=== PATIENT | female | born 1945 | race Caucasian/White ===

== ENCOUNTER 2024-01-21 10:41 | Emergency (ER) | payer OTHER, MEDICAID, SELFPAY ==
[2024-01-21] VITALS (17 sets, daily range): BP systolic 106–129; BP diastolic 49–58; PULSE 96–119; RESP 22–33; TEMP 36.9–37.5; O2SAT 88–97; BMI 35.2
--- NOTE | 2024-01-21 10:54 | DI.RAD.S_ITS ---
PROCEDURE: XR CHEST 1V INDICATIONS: Shortness of breath TECHNIQUE: One view of the chest was acquired. COMPARISON: [facility], CT, CT CHEST ABDOMEN PELVIS WITHOUT CONTRAST, 09/02/2023, 18:26 Mild cardiomegaly.. Outside Film, CR, XR CHEST 1 VIEW, 07/21/2021, 22:01. [facility], CR, XR CHEST 1 VIEW, 04/02/2022, 6:09. [facility], CR, XR CHEST 1 VIEW, 04/04/2022, 11:49. FINDINGS: Surgical changes and devices: None. Lungs and pleura: Mild interstitial pulmonary edema. No pleural effusions or pneumothorax. Mediastinum: Mediastinal contours appear normal. Heart size is normal. Bones and chest wall: No suspicious bony lesions. Overlying soft tissues appear unremarkable. IMPRESSION: Mild congestive heart failure. Dictated by: Alireza Bhagat M.D. on 01/21/2024 at 11:33 Approved by: Alireza Bhagat M.D. on 01/21/2024 at 11:35
[2024-01-21 10:59] LABS: Add Manual Diff / Slide Review YES; Hematocrit 40.3 % (36-46); Hemoglobin 12.9 g/dL (12.0-16.0); Mean Corpuscular HGB Conc 31.9 % (30-36); Mean Corpuscular Hemoglobin 25.9 PG (26-34); Mean Corpuscular Volume 81.2 fL (80-100); Platelet Count 309 X10^3/uL (150-400); Red Blood Cell Count 4.96 X10^6/uL (4.0-5.2); White Blood Cell Count 15.1 X10^3/uL (4.5-11.0)
[2024-01-21 11:13] LABS: Alanine Aminotransferase 22 IU/L (<35); Albumin 3.6 g/dL (3.5-5.0); Albumin Globulin Ratio 1.2 (1.0-2.8); Alkaline Phosphatase 131 U/L (38-126); Aspartate Aminotransferase 36 IU/L (14-36); BUN Creatinine Ratio 22.3 (6-22); Blood Urea Nitrogen 27 mg/dL (7-17); Calcium 7.3 mg/dL (8.4-10.2); Carbon Dioxide 20 mmol/L (22-32); Chloride 112 mmol/L (98-107); Estimated Glomerular Filt Rate 46 mL/min (>60); Globulin 3.1 g/dL (1.7-4.1); Glucose 185 mg/dL (80-110); HEMOLYSIS < 15 (0-50); Lactate (Lactic Acid) 1.5 mmol/L (0.7-2.1); Potassium 4.2 mmol/L (3.4-5.1); Sodium 141 mmol/L (137-145); Total Protein 6.7 g/dL (6.3-8.2)
[2024-01-21 11:22] LABS: INR 1.6 (0.9-1.3); Prothrombin Time 17.9 SECONDS (9.4-12.5)
[2024-01-21 11:25] LABS: NT-proBNP (BNP-Adult 18+) 1590 pg/mL (<450); Troponin I < 0.012 ng/mL (0.01-0.034)
[2024-01-21 11:28] LABS: Anisocytosis 1+; Neutrophils Absolute Manual 12080 /uL (3000-5900); Total Cells Counted 100
[2024-01-21 11:47] LABS: Influenza A - CEPHEID Flu A NEGATIVE (NEGATIVE); Influenza B - CEPHEID Flu B NEGATIVE (NEGATIVE); Respiratory Syncytial Virus Negative (Negative)
[2024-01-21 11:48] LABS: COVID-19 CEPHEID 4-PLEX PCR Negative (Negative)
[2024-01-21] MEDS: ALBUTEROL 2.5 MG/3 ML NEB (ADULT) INH (12:37)
--- NOTE | 2024-01-21 12:43 | ED.SOB ---
HPI - SOB/Dyspnea General Chief Complaint: Shortness of Breath/Dyspnea Stated Complaint: Difficulty Breathing Time Seen by Provider: 01/21/24 12:27 Source: patient and EMS Mode of arrival: EMS History of Present Illness HPI Narrative: Patient 78-year-old female history of diabetes, atrial fibrillation on Xarelto chronically on home O2 4L presents today increasing shortness of breath. She reports he has had a cold for about 3 days she has had increased productive cough, denies any fever or chills. She reports that she is has orthopnea and shortness of breath with exertion. No significant lower extremity swelling no fever or chills. Related Data Previous Rx's Medication Instructions Recorded prednisone 20 mg tablet 40 mg (2 x 20 mg) PO DAILY #10 tabs 01/21/24 Allergies Allergy/AdvReac Type Severity Reaction Status Date / Time marijuana (cannabis) Allergy Verified 01/21/24 12:03 shellfish derived Allergy Verified 01/21/24 12:03 tramadol Allergy Verified 01/21/24 12:03 Patient History Social History Smoking Status: Never smoker Smoking Status: Never smoker Substance Use Type: does not use Exam Initial Vital Signs Initial Vital Signs: Vital Signs Temperature 99.5 F 01/21/24 10:54 Pulse Rate 119 H 01/21/24 10:54 Respiratory Rate 24 01/21/24 10:54 Blood Pressure 129/54 L 01/21/24 10:54 Pulse Oximetry 88 L 01/21/24 10:54 Oxygen Delivery Method Room Air 01/21/24 10:54 GENERAL: Alert 78-year-old female HEENT: Head atraumatic,EOMI, pupils reactive, CARDIOVASCULAR: Regular rate and rhythm without murmurs, rubs or gallops. RESPIRATORY: Mild crackles at bases no significant wheezing no conversational dyspnea ABDOMEN: Soft, nontender. Normoactive bowel sounds all 4 quadrants. No guarding or rebound. EXTREMITIES: Normal range of motion, no clubbing or edema. Neurovascularly intact NEUROLOGICAL: Alert and oriented x4.Normal gait and speech. SKIN: Warm, dry, no laceration, no petechiae, no rashes or lesions. Some skin breakdown noted on panus Course Orders Ordered: ED Orders 01/21/24 12:04 Blood Culture Stat Discontinued Medications Albuterol (Albuterol 2.5 Mg/3 Ml Neb (Adult)) 2.5 mg INH NOW ONE Stop: 01/21/24 12:32 Last Admin: 01/21/24 12:37 Dose: 2.5 mg Documented By: BRITTANYF Furosemide (Furosemide 40 Mg/4 Ml Vial) 40 mg IV NOW ONE Stop: 01/21/24 14:43 Last Admin: 01/21/24 15:52 Dose: 40 mg Documented By: ZARINA Methylprednisolone (Methylprednisolone 125 Mg/2 Ml Vial) 125 mg IV NOW ONE Stop: 01/21/24 15:19 Last Admin: 01/21/24 15:52 Dose: 125 mg Documented By: ZARINA Vital Signs Vital signs: Vital Signs - 8 hr 01/21/24 12:38 01/21/24 13:00 01/21/24 13:30 Temperature Pulse Rate 108 H 105 H 104 H Respiratory Rate 22 31 H Blood Pressure Pulse Oximetry 94 93 91 Oxygen Delivery Method Nasal Cannula Oxygen Flow Rate 4 01/21/24 13:46 01/21/24 13:46 01/21/24 14:00 Temperature Pulse Rate 104 H 99 H Respiratory Rate 24 Blood Pressure 117/52 L Pulse Oximetry 91 95 Oxygen Delivery Method Oxygen Flow Rate 01/21/24 14:00 01/21/24 14:30 01/21/24 14:30 Temperature Pulse Rate 97 H Respiratory Rate 27 H Blood Pressure 108/49 L 108/53 L Pulse Oximetry 92 Oxygen Delivery Method Oxygen Flow Rate 01/21/24 15:00 01/21/24 15:00 01/21/24 15:30 Temperature Pulse Rate 96 H Respiratory Rate 26 H Blood Pressure 106/51 L 115/58 L Pulse Oximetry 93 Oxygen Delivery Method Oxygen Flow Rate 01/21/24 15:30 01/21/24 16:00 01/21/24 16:01 Temperature Pulse Rate 100 H 98 H Respiratory Rate 24 Blood Pressure 114/51 L Pulse Oximetry 93 97 Oxygen Delivery Method Oxygen Flow Rate 01/21/24 16:01 01/21/24 16:30 01/21/24 16:59 Temperature 98.4 F Pulse Rate 99 H 100 H Respiratory Rate Blood Pressure Pulse Oximetry 96 95 Oxygen Delivery Method Oxygen Flow Rate MDM - SOB/Dyspnea Lab Data 01/21/24 10:56 01/21/24 10:56 Labs: Lab Results 01/21/24 01/21/24 Range/Units 10:49 10:56 WBC 15.1 H (4.5-11.0) X10^3/uL RBC 4.96 (4.0-5.2) X10^6/uL Hgb 12.9 (12.0-16.0) g/dL Hct 40.3 (36-46) % MCV 81.2 (80-100) fL MCH 25.9 L (26-34) PG MCHC 31.9 (30-36) % RDW 18.0 H (11.6-14.8) % Plt Count 309 (150-400) X10^3/uL Neut % (Auto) Not Reportable Lymph % (Auto) Not Reportable Sunflower % (Auto) Not Reportable Eos % (Auto) Not Reportable Baso % (Auto) Not Reportable Lymph # (Auto) Not Reportable Sunflower # (Auto) Not Reportable Baso # (Auto) Not Reportable Total Counted 100 Seg Neutrophils % 80.0 H (38-70) % Lymphocytes % (Manual) 13.0 L (25-45) % Monocytes % (Manual) 5.0 (2-11) % Basophils % (Manual) 2.0 H (0-1) % Neutrophils # (Manual) 92818 H (0228-0050) /uL RBC Morphology See below Anisocytosis 1+ H PT 17.9 H (9.4-12.5) SECONDS INR 1.6 H (0.9-1.3) Sodium 141 (137-145) mmol/L Potassium 4.2 (3.4-5.1) mmol/L Chloride 112 H (98-107) mmol/L Carbon Dioxide 20 L (22-32) mmol/L BUN 27 H (7-17) mg/dL Creatinine 1.21 H (0.52-1.04) mg/dL Estimated GFR 46 L (>60) mL/min BUN/Creatinine Ratio 22.3 H (6-22) Glucose 185 H (80-110) mg/dL Lactate 1.5 (0.7-2.1) mmol/L Calcium 7.3 L (8.4-10.2) mg/dL Total Bilirubin 1.0 (0.2-1.3) mg/dL AST 36 (14-36) IU/L ALT 22 (<35) IU/L Alkaline Phosphatase 131 H (38-126) U/L Troponin I < 0.012 (0.01-0.034) ng/mL NT-Pro-B Natriuret Pep 1590 H (<450) pg/mL Total Protein 6.7 (6.3-8.2) g/dL Albumin 3.6 (3.5-5.0) g/dL Globulin 3.1 (1.7-4.1) g/dL Albumin/Globulin Ratio 1.2 (1.0-2.8) SARS-CoV-2 (PCR) Negative (Negative) Influenza A (RT-PCR) Flu a negative (NEGATIVE) Influenza B (RT-PCR) Flu b negative (NEGATIVE) RSV (PCR) Negative (Negative) Imaging Data Chest x-ray: Radiologist's Impression: PROCEDURE: XR CHEST 1V INDICATIONS: Shortness of breath TECHNIQUE: One view of the chest was acquired. COMPARISON: [facility], CT, CT CHEST ABDOMEN PELVIS WITHOUT CONTRAST, 09/02/2023, 18:26 Mild cardiomegaly.. Outside Film, CR, XR CHEST 1 VIEW, 07/21/2021, 22:01. [facility], CR, XR CHEST 1 VIEW, 04/02/2022, 6:09. [facility], CR, XR CHEST 1 VIEW, 04/04/2022, 11:49. FINDINGS: Surgical changes and devices: None. Lungs and pleura: Mild interstitial pulmonary edema. No pleural effusions or pneumothorax. Mediastinum: Mediastinal contours appear normal. Heart size is normal. Bones and chest wall: No suspicious bony lesions. Overlying soft tissues appear unremarkable. IMPRESSION: Mild congestive heart failure. Dictated by: Alireza Bhagat M.D. on 01/21/2024 at 11:33 ECG Data Interpretation: Atrial fibrillation rate [address] changes MDM Narrative Medical decision making narrative: Patient 78-year-old female history of asthma atrial fibrillation on Xarelto, diabetes, She has had upper respiratory like symptoms Blood work has been reviewed: Viral panel negative WBC 15, hemoglobin 12.9, hematocrit 40.3, platelets 309, sodium 141, potassium 4.2, chloride 112, carbon dioxide 20, BUN 27, creatinine 0.21, glucose 185, troponin negative, BNP 1590 Chest x-ray reviewed mild congestive heart failure Patient feels like she has had a cold for the last 3 days she is mild leukocytosis of 15. She was having respiratory issues when she arrives she received albuterol and Lasix. She reports that the albuterol seemed to help a lot. Viral panel is negative no evidence of pneumonia on x-ray. Leukocytosis may be reactive. She is on Lasix 20 mg once daily she does not look significantly fluid overloaded. Discharge Plan Departure Patient Disposition: Home Clinical Impression: Asthma with exacerbation, Congestive heart failure Instructions: DI for Asthma -- Adult, DI for Heart Failure Activity Restrictions/Additional Instructions: *You have been diagnosed with asthma exacerbation, CHF *What to do: At this time let us try short course of prednisone to see if it helps her breathing *Continue to take medications as directed Furosemide 20 mg twice a day for 2 days, then resume normal dose of once daily Prednisone 40 mg once a day for 5 days *Follow up with your primary care provider in 2-3 days or call [phone] *Return to ER if you should have increasing shortness of breath fever chills or weakness or any new, worsening or concerning symptoms Prescriptions: New prednisone 20 mg tablet 40 mg PO DAILY Qty: 10 0RF Stand Alone Forms: Patient Portal/API
[2024-01-21] MEDS: methylPREDNISolone 125 MG/2 ML VIAL IV (15:52)
[2024-01-21] MEDS: FUROSEMIDE 40 MG/4 ML VIAL IV (15:52)
== END 2024-01-21 17:00 | disposition home or self-care (01) ==
PROVIDERS: Emergency Provider Emergency Medicine
DX: J45.901 Unspecified asthma with (acute) exacerbation (principal); I50.9 Heart failure, unspecified; R06.02 Shortness of breath; Z20.822 Contact with and (suspected) exposure to COVID-19
CPT/HCPCS: 0241U; 71045; 80053; 83605; 83880; 84484; 85007; 85025; 85610; 87040; 93005; 94640; 96374; 96375; 99284; J1940; J2919; J7613

== ENCOUNTER 2024-02-02 10:45 | Observation (INO) | payer OTHER, MEDICAID, SELFPAY ==
[2024-02-02] VITALS (24 sets, daily range): BP systolic 94–128; BP diastolic 49–67; PULSE 57–86; RESP 13–33; TEMP 35.9–37.1; O2SAT 84–97; BMI 38.2
--- NOTE | 2024-02-02 10:59 | DI.RAD.S_ITS ---
PROCEDURE: XR CHEST 1V INDICATIONS: Shortness of breath TECHNIQUE: One view of the chest was acquired. COMPARISON: [facility], CR, XR CHEST 1V, 01/21/2024, 11:08. FINDINGS: Surgical changes and devices: None. Lungs and pleura: Prominent interstitial markings. Mediastinum: Mediastinal contours appear normal. Heart size is enlarged. Bones and chest wall: No suspicious bony lesions. Overlying soft tissues appear unremarkable. IMPRESSION: Cardiomegaly with prominent interstitial markings, concerning for pulmonary edema. Dictated by: Hayden Mcnulty M.D. on 02/02/2024 at 11:20 Approved by: Hayden Mcnulty M.D. on 02/02/2024 at 11:21
[2024-02-02 11:05] LABS: Add Manual Diff / Slide Review NO; Basophils Absolute Auto 100 /uL (0-100); Basophils Percent Auto 0.8 % (0-2); Eosinophils Absolute Auto 200 /uL (0-450); Eosinophils Percent Auto 1.1 % (2-4); Hematocrit 44.6 % (36-46); Hemoglobin 14.2 g/dL (12.0-16.0); Lymphocytes Absolute Auto 3000 /uL (1100-4500); Lymphocytes Percent Auto 19.5 % (25-40); Mean Corpuscular HGB Conc 31.9 % (30-36); Mean Corpuscular Hemoglobin 25.2 PG (26-34); Monocytes Absolute Auto 1000 /uL (0-900); Monocytes Percent Auto 6.2 % (3-14); Neutrophils Absolute Auto 11100 /uL (1500-7000); Neutrophils Percent Auto 72.4 % (50-75); Platelet Count 299 X10^3/uL (150-400); Red Blood Cell Count 5.64 X10^6/uL (4.0-5.2); White Blood Cell Count 15.3 X10^3/uL (4.5-11.0)
[2024-02-02 11:11] LABS: INR 2.1 (0.9-1.3); Prothrombin Time 24.6 SECONDS (9.4-12.5)
--- NOTE | 2024-02-02 11:14 | ED.SOB ---
HPI - SOB/Dyspnea General Chief Complaint: Shortness of Breath/Dyspnea Stated Complaint: Alt ment status/weakness 3 days,hypoxia Time Seen by Provider: 02/02/24 11:06 Source: patient and EMS Mode of arrival: EMS History of Present Illness HPI Narrative: Patient brought in by ambulance from daughter's home for dyspnea and altered mental status. Patient is post be on oxygen at home but she states she took it off this morning. Uncertain why she took off she states. She is alert and oriented to self and date of . She is able tell me that she does have CHF and COPD. She states she took a hydrocodone yesterday and this morning. For chronic ?bone pain?. Patient states she has been urinating a lot. She is uncertain if she has had limb swelling. There is 1+ pitting edema of the legs. Patient denies any chest pain. She is very somnolent. Has pinpoint pupils. Narcan has been ordered. Blood glucose ordered as well. Breathing treatment already done by respiratory therapy without improvement in mental status. There are bibasilar rales. Denies any fall or injury. Blood sugar 180 Review of recent visit January 21, 2024, patient does have history of diabetes atrial fibrillation on Xarelto. Home oxygen 4 L Related Data Home Medications Medication Instructions Recorded Confirmed atorvastatin 20 mg tablet 20 mg PO DAILY 02/02/24 02/02/24 buspirone 10 mg tablet 10 mg PO TID 02/02/24 02/03/24 cholecalciferol (vitamin D3) 25 1,000 mcg PO DAILY 02/02/24 02/02/24 mcg (1,000 unit) capsule (Vitamin D3) cyclobenzaprine 10 mg tablet 10 mg PO DAILY 02/02/24 02/03/24 diazepam 5 mg tablet 5 mg PO PRN PRN Muscle Spasm 02/02/24 02/02/24 empagliflozin 10 mg tablet 10 mg PO DAILY 02/02/24 02/02/24 (Jardiance) furosemide 20 mg tablet 20 mg PO DAILY 02/02/24 02/02/24 hydrocodone 10 mg-acetaminophen 1 tab PO TID 02/02/24 02/03/24 325 mg tablet insulin glargine 100 unit/mL (3 24 unit SUBCUT BID 02/02/24 02/03/24 mL) subcutaneous pen (Lantus Solostar U-100 Insulin) lisinopril 20 mg tablet 20 mg PO DAILY 02/02/24 02/02/24 montelukast 10 mg tablet 10 mg PO ONCE PM 02/02/24 02/02/24 ondansetron 8 mg disintegrating 8 mg PO Q8H PRN nausea/vomiting 02/02/24 02/02/24 tablet pantoprazole 40 mg tablet,delayed 40 mg PO DAILY 02/02/24 02/02/24 release pramipexole 1 mg tablet 1 mg PO QPM 02/02/24 02/02/24 pregabalin 100 mg capsule 100 mg PO TID 02/02/24 02/02/24 rivaroxaban 15 mg tablet (Xarelto) 15 mg PO QPM 02/02/24 02/02/24 albuterol sulfate 2.5 mg/3 mL 2.5 mg inhalation Q4H PRN wheezing 02/03/24 02/03/24 (0.083 %) solution for nebulization albuterol sulfate 90 mcg/actuation 2 puff inhalation Q6H PRN wheezing 02/03/24 02/03/24 aerosol inhaler budesonide 0.5 mg/2 mL suspension 0.5 mg inhalation DAILY 02/03/24 02/03/24 for nebulization ipratropium 0.5 mg-albuterol 3 mg 3 ml inhalation DAILY PRN SOB 02/03/24 02/03/24 (2.5 mg base)/3 mL nebulization soln lidocaine 5 % topical patch 1 patch topical DAILY 02/03/24 02/03/24 potassium chloride 10 mEq 10 meq PO BID 02/03/24 02/03/24 tablet,extended release tiotropium 2.5 mcg-olodaterol 2.5 2 puff inhalation DAILY 02/03/24 02/03/24 mcg/actuation mist for inhalation (Stiolto Respimat) Previous Rx's Medication Instructions Recorded azithromycin 250 mg tablet 250 mg PO DAILY #3 tabs 02/04/24 cefuroxime axetil 500 mg tablet 500 mg PO BID 5 days #10 tabs 02/04/24 Allergies Allergy/AdvReac Type Severity Reaction Status Date / Time marijuana (cannabis) Allergy Verified 01/21/24 12:03 shellfish derived Allergy Verified 01/21/24 12:03 tramadol Allergy Verified 01/21/24 12:03 Review of Systems Review of Systems Narrative: GENERAL: negative chills, fatigue, malaise, fever, sweats. HEENT: negative sinus pain, ear pain, sore throat RESPIRATORY: Positive dyspnea, denies cough CARDIOVASCULAR: negative chest pain, palpitations GASTROINTESTINAL: negative nausea, vomiting, abdominal pain : negative dysuria, frequency, hematuria MUSCULOSKELETAL: negative muscle or bony pain SKIN: negative rash, skin lesions NEUROLOGIC: negative weakness, numbness, positive confusion ROS Unobtainable: All systems reviewed & are unremarkable except as noted in HPI and below Patient History Social History household members: children Smoking Status: Never smoker alcohol intake: never Smoking Status: Never smoker Substance Use Type: does not use Exam Narrative Exam Narrative: GENERAL: in no distress, not toxic not dyspneic HEAD: Normocephalic. EYES: Pupils equal round ENT: Mucous membranes moist. NECK: Trachea midline. CARDIOVASCULAR: Irregularly irregular rate and rhythm RESPIRATORY: Patient very somnolent but is able to speak through the non-rebreather. Not candidate for BiPAP at this time. There are bibasilar rales and rhonchi but no wheezing, no tachypnea. GASTROINTESTINAL: Abdomen soft, non-tender EXTREMITIES: No gross deformities. 1+ bilateral leg edema BACK: No flank tenderness. NEURO: AOx4. SKIN: Warm and dry PSYCH: Not anxious, is cooperative Initial Vital Signs Initial Vital Signs: Vital Signs Pulse Rate 78 02/02/24 10:51 Pulse Oximetry 91 02/02/24 10:51 Oxygen Delivery Method Nasal Cannula 02/02/24 10:51 Oxygen Flow Rate 5 02/02/24 10:51 Course Orders Ordered: Discontinued Medications Acetaminophen (Acetaminophen 325 Mg Tablet) 650 mg PO Q6H PRN PRN Reason: Fever/Mild Pain (1-3) Hydrocodone Bitart/Acetaminophen (Hydrocodone/Acet 5/325 Tablet) 1 tab PO Q4HR PRN PRN Reason: Pain, Moderate (4-6) Last Admin: 02/03/24 04:34 Dose: 1 tab Documented By: DILEEP Hydrocodone Bitart/Acetaminophen (Hydrocodone/Acet 10/325 Tablet) 1 tab PO TID PRN PRN Reason: Pain, Severe (7-10) Last Admin: 02/04/24 07:01 Dose: 1 tab Documented By: Admin: 02/03/24 21:09 Dose: 1 tab Documented By: Admin: 02/03/24 08:56 Dose: 1 tab Documented By: KARINA Atorvastatin Calcium (Atorvastatin 20 Mg Tablet) 20 mg PO DAILY [facility] Last Admin: 02/04/24 08:42 Dose: 20 mg Documented By: Admin: 02/03/24 08:36 Dose: 20 mg Documented By: KARINA Azithromycin (Azithromycin 250 Mg Tablet) 500 mg PO NOW ONE Stop: 02/04/24 15:33 Last Admin: 02/04/24 15:38 Dose: 500 mg Documented By: KARINA Buspirone HCl (Buspirone 5 Mg Tablet) 10 mg PO TID [facility] Last Admin: 02/04/24 14:50 Dose: 10 mg Documented By: Admin: 02/04/24 08:41 Dose: 10 mg Documented By: Admin: 02/03/24 20:52 Dose: 10 mg Documented By: Admin: 02/03/24 14:50 Dose: 10 mg Documented By: Admin: 02/03/24 08:36 Dose: 10 mg Documented By: KARINA Calcium Carbonate (Calcium Carbonate 500 Mg Tab) 1,000 mg PO Q4HR PRN PRN Reason: Dyspepsia Cyclobenzaprine HCl (Cyclobenzaprine 10 Mg Tablet) 10 mg PO TID [facility] Last Admin: 02/03/24 08:36 Dose: 10 mg Documented By: KARINA Diazepam (Diazepam 5 Mg Tablet) 5 mg PO PRN PRN PRN Reason: Muscle Spasm Furosemide (Furosemide 20 Mg Tablet) 20 mg PO DAILY [facility] Last Admin: 02/04/24 08:41 Dose: 20 mg Documented By: Admin: 02/03/24 08:36 Dose: 20 mg Documented By: KARINA Sodium Chloride (Normal Saline 0.9%) 500 mls @ 250 mls/hr IV BOLUS ONE Stop: 02/02/24 14:46 Last Infusion: 02/02/24 15:38 Dose: Infused Documented By: KARINA(2) Admin: 02/02/24 14:16 Dose: 250 mls/hr Documented By: KARINA(2) Ceftriaxone Sodium 2,000 mg/ (Sodium Chloride) 100 mls @ 200 mls/hr IV NOW ONE Stop: 02/02/24 15:01 Last Infusion: 02/02/24 15:39 Dose: Infused Documented By: KARINA(2) Admin: 02/02/24 15:00 Dose: 200 mls/hr Documented By: KARINA(2) Azithromycin 500 mg/ Dextrose 250 mls @ 250 mls/hr IV NOW ONE Stop: 02/02/24 15:01 Last Infusion: 02/02/24 15:58 Dose: 0 mls/hr Documented By: KARINA(2) Admin: 02/02/24 15:57 Dose: 250 mls/hr Documented By: KARINA(2) Ceftriaxone Sodium 1,000 mg/ (Sodium Chloride) 100 mls @ 200 mls/hr IV Q24H ANNA Stop: 02/08/24 14:59 Last Admin: 02/04/24 14:50 Dose: 200 mls/hr Documented By: Infusion: 02/03/24 16:10 Dose: Infused Documented By: Admin: 02/03/24 14:50 Dose: 200 mls/hr Documented By: KARINA Azithromycin 500 mg/ Dextrose 250 mls @ 250 mls/hr IV Q24H ANNA Stop: 02/06/24 15:59 Last Infusion: 02/04/24 15:19 Dose: Infused Documented By: Admin: 02/03/24 16:10 Dose: 250 mls/hr Documented By: KARINA Montelukast Sodium (Montelukast 10 Mg Tablet) 10 mg PO QPM [facility] Last Admin: 02/03/24 16:10 Dose: 10 mg Documented By: KARINA Naloxone HCl (Naloxone 0.4 Mg/Ml Vial) 0.2 mg IV Q2MIN PRN PRN Reason: Opiate Reversal Last Admin: 02/02/24 11:27 Dose: 0.2 mg Documented By: KARINA(2) Naloxone HCl (Naloxone 0.4 Mg/Ml Vial) 0.2 mg IV NOW ONE Stop: 02/02/24 11:46 Last Admin: 02/02/24 11:46 Dose: 0.2 mg Documented By: KARINA(2) Naloxone HCl (Naloxone 0.4 Mg/Ml Vial) 0.2 mg IV Q2MIN PRN PRN Reason: Opiate Reversal Ondansetron HCl (Ondansetron 4 Mg/2 Ml Inj) 4 mg IV NOW ONE Stop: 02/02/24 11:14 Last Admin: 02/02/24 11:27 Dose: 4 mg Documented By: KARINA(2) Pantoprazole Sodium (Pantoprazole Dr 40 Mg Tablet) 40 mg PO DAILY [facility] Last Admin: 02/04/24 08:41 Dose: 40 mg Documented By: Admin: 02/03/24 08:36 Dose: 40 mg Documented By: KARINA Pramipexole Dihydrochloride (Pramipexole 0.25 Mg Tablet) 1 mg PO BEDTIME [facility] Last Admin: 02/03/24 20:52 Dose: 1 mg Documented By: DILEEP Pregabalin (Pregabalin 50 Mg Capsule) 100 mg PO TID [facility] Last Admin: 02/04/24 14:50 Dose: 100 mg Documented By: Admin: 02/04/24 08:41 Dose: 100 mg Documented By: Admin: 02/03/24 20:53 Dose: 100 mg Documented By: Admin: 02/03/24 14:50 Dose: 100 mg Documented By: Admin: 02/03/24 08:36 Dose: 100 mg Documented By: KARINA Rivaroxaban (Rivaroxaban 10 Mg Tablet) 15 mg PO QPM [facility] Last Admin: 02/03/24 16:10 Dose: 15 mg Documented By: KARINA Sennosides (Sennosides 8.6 Mg Tablet) 17.2 mg PO BEDTIME [facility] Last Admin: 02/03/24 20:52 Dose: 17.2 mg Documented By: Admin: 02/02/24 21:02 Dose: 17.2 mg Documented By: DILEEP Vitamin D (Cholecalciferol (Vitamin D3) 1,000 Unit Tablet) 1,000 unit PO DAILY [facility] Last Admin: 02/04/24 08:42 Dose: 1,000 unit Documented By: Admin: 02/03/24 08:36 Dose: 1,000 unit Documented By: KARINA Vital Signs Vital signs: Vital Signs - 8 hr 02/02/24 10:51 02/02/24 10:53 02/02/24 10:53 Temperature Pulse Rate 78 78 Respiratory Rate 26 H Blood Pressure 118/56 L Pulse Oximetry 91 Oxygen Delivery Method Nasal Cannula Oxygen Flow Rate 5 02/02/24 11:00 02/02/24 11:00 02/02/24 11:02 Temperature 98.7 F Pulse Rate 80 77 Respiratory Rate 32 H 22 Blood Pressure 126/56 L 122/56 L Pulse Oximetry 86 L 86 L Oxygen Delivery Method Non -Rebreather Non -Rebreather Oxygen Flow Rate 15 02/02/24 11:15 02/02/24 11:15 02/02/24 11:30 Temperature Pulse Rate 78 Respiratory Rate 19 Blood Pressure 94/65 113/53 L Pulse Oximetry 85 L Oxygen Delivery Method Non -Rebreather Oxygen Flow Rate 15 02/02/24 11:30 02/02/24 11:45 02/02/24 11:45 Temperature Pulse Rate 86 78 Respiratory Rate 33 H 23 Blood Pressure 117/53 L Pulse Oximetry Oxygen Delivery Method Oxygen Flow Rate 02/02/24 12:00 02/02/24 12:01 02/02/24 12:01 Temperature Pulse Rate 77 79 Respiratory Rate 23 28 H Blood Pressure 115/53 L Pulse Oximetry 91 Oxygen Delivery Method Nasal Cannula Oxygen Flow Rate 5 02/02/24 12:30 02/02/24 14:16 Temperature Pulse Rate 74 Respiratory Rate 25 H Blood Pressure Pulse Oximetry 97 Oxygen Delivery Method Nasal Cannula Oxygen Flow Rate 4 MDM - SOB/Dyspnea Lab Data 02/04/24 05:17 02/04/24 05:17 Labs: Lab Results 02/02/24 02/02/24 02/02/24 Range/Units 10:45 10:59 11:17 WBC 15.3 H (4.5-11.0) X10^3/uL RBC 5.64 H (4.0-5.2) X10^6/uL Hgb 14.2 (12.0-16.0) g/dL Hct 44.6 (36-46) % MCV 79.0 L (80-100) fL MCH 25.2 L (26-34) PG MCHC 31.9 (30-36) % RDW 18.0 H (11.6-14.8) % Plt Count 299 (150-400) X10^3/uL Neut % (Auto) 72.4 (50-75) % Lymph % (Auto) 19.5 L (25-40) % [place] % (Auto) 6.2 (3-14) % Eos % (Auto) 1.1 L (2-4) % Baso % (Auto) 0.8 (0-2) % Neut # (Auto) 89212 H (7528-0534) /uL Lymph # (Auto) 3000 (3108-3721) /uL [place] # (Auto) 1000 H (0-900) /uL Eos # (Auto) 200 (0-450) /uL Baso # (Auto) 100 (0-100) /uL PT 24.6 H (9.4-12.5) SECONDS INR 2.1 H (0.9-1.3) ABG Sample Site Left radial ABG pH 7.34 L (7.35-7.45) ABG pCO2 48.3 H (35-45) mmHg ABG pO2 249 H (80-100) mmHg ABG HCO3 26 (23-27) mmol/L ABG Total CO2 27 (23-27) mmol/L ABG O2 Saturation 100 (95-100) % ABG Base Excess 0.0 (-2-3) mmol/L FiO2 80 Sodium 133 L (137-145) mmol/L Potassium 4.8 (3.4-5.1) mmol/L Chloride 103 (98-107) mmol/L Carbon Dioxide 26 (22-32) mmol/L BUN 20 H (7-17) mg/dL Creatinine 1.00 (0.52-1.04) mg/dL Estimated GFR 58 L (>60) mL/min BUN/Creatinine Ratio 20.0 (6-22) Glucose 190 H (80-110) mg/dL Lactate 1.8 (0.7-2.1) mmol/L Calcium 8.7 (8.4-10.2) mg/dL Total Bilirubin 1.0 (0.2-1.3) mg/dL AST 29 (14-36) IU/L ALT 20 (<35) IU/L Alkaline Phosphatase 85 (38-126) U/L Troponin I < 0.012 (0.01-0.034) ng/mL NT-Pro-B Natriuret Pep 436 (<450) pg/mL Total Protein 6.4 (6.3-8.2) g/dL Albumin 3.7 (3.5-5.0) g/dL Globulin 2.7 (1.7-4.1) g/dL Albumin/Globulin Ratio 1.4 (1.0-2.8) Chlamy pneumoniae PCR (Not Detect) Adenovirus (PCR) (Not Detect) B.parapertussis DNA PCR (Not Detecte) Coronavirus OC43 (PCR) (Not Detect) Coronavirus HKU1 (PCR) (Not Detect) Coronavirus 229E (PCR) (Not Detect) SARS-CoV-2 (PCR) (Not Detecte) Coronavirus NL63 (PCR) (Not Detect) Human Metapneumovir PCR (Not Detect) Influenza Type A (PCR) (Not Detect) Influenza Type B (PCR) (Not Detect) M. pneumoniae (PCR) (Not Detect) Parainfluenza 1 (PCR) (Not Detect) Parainfluenza 2 (PCR) (Not Detect) Parainfluenza 3 (PCR) (Not Detect) Parainfluenza 4 (PCR) (Not Detect) RSV (PCR) (Not Detect) Entero/Rhino (PCR) (Not Detect) 02/02/24 Range/Units 11:19 WBC (4.5-11.0) X10^3/uL RBC (4.0-5.2) X10^6/uL Hgb (12.0-16.0) g/dL Hct (36-46) % MCV (80-100) fL MCH (26-34) PG MCHC (30-36) % RDW (11.6-14.8) % Plt Count (150-400) X10^3/uL Neut % (Auto) (50-75) % Lymph % (Auto) (25-40) % [place] % (Auto) (3-14) % Eos % (Auto) (2-4) % Baso % (Auto) (0-2) % Neut # (Auto) (6868-2165) /uL Lymph # (Auto) (6428-5533) /uL [place] # (Auto) (0-900) /uL Eos # (Auto) (0-450) /uL Baso # (Auto) (0-100) /uL PT (9.4-12.5) SECONDS INR (0.9-1.3) ABG Sample Site ABG pH (7.35-7.45) ABG pCO2 (35-45) mmHg ABG pO2 (80-100) mmHg ABG HCO3 (23-27) mmol/L ABG Total CO2 (23-27) mmol/L ABG O2 Saturation (95-100) % ABG Base Excess (-2-3) mmol/L FiO2 Sodium (137-145) mmol/L Potassium (3.4-5.1) mmol/L Chloride (98-107) mmol/L Carbon Dioxide (22-32) mmol/L BUN (7-17) mg/dL Creatinine (0.52-1.04) mg/dL Estimated GFR (>60) mL/min BUN/Creatinine Ratio (6-22) Glucose (80-110) mg/dL Lactate (0.7-2.1) mmol/L Calcium (8.4-10.2) mg/dL Total Bilirubin (0.2-1.3) mg/dL AST (14-36) IU/L ALT (<35) IU/L Alkaline Phosphatase (38-126) U/L Troponin I (0.01-0.034) ng/mL NT-Pro-B Natriuret Pep (<450) pg/mL Total Protein (6.3-8.2) g/dL Albumin (3.5-5.0) g/dL Globulin (1.7-4.1) g/dL Albumin/Globulin Ratio (1.0-2.8) Chlamy pneumoniae PCR Not detected (Not Detect) Adenovirus (PCR) Not detected (Not Detect) B.parapertussis DNA PCR Not detected (Not Detecte) Coronavirus OC43 (PCR) Not detected (Not Detect) Coronavirus HKU1 (PCR) Not detected (Not Detect) Coronavirus 229E (PCR) Not detected (Not Detect) SARS-CoV-2 (PCR) Not detected (Not Detecte) Coronavirus NL63 (PCR) Not detected (Not Detect) Human Metapneumovir PCR Not detected (Not Detect) Influenza Type A (PCR) Not detected (Not Detect) Influenza Type B (PCR) Not detected (Not Detect) M. pneumoniae (PCR) Not detected (Not Detect) Parainfluenza 1 (PCR) Not detected (Not Detect) Parainfluenza 2 (PCR) Not detected (Not Detect) Parainfluenza 3 (PCR) Not detected (Not Detect) Parainfluenza 4 (PCR) Not detected (Not Detect) RSV (PCR) Not detected (Not Detect) Entero/Rhino (PCR) Not detected (Not Detect) Imaging Data Chest x-ray: Radiologist's Impression: [address] [address] XRay Report Signed Patient: Lakshmi Aquino MR#: [id number] : 1945 Acct:[id number] Age/Sex: 78 / F Date of Service: 02/02/24 Loc: ED Accession Number: [id number] Procedure: XR chest 1V Ordering Provider: Jean Carlos Hurt MD PROCEDURE: XR CHEST 1V INDICATIONS: Shortness of breath TECHNIQUE: One view of the chest was acquired. COMPARISON: [facility], CR, XR CHEST 1V, 01/21/2024, 11:08. FINDINGS: Surgical changes and devices: None. Lungs and pleura: Prominent interstitial markings. Mediastinum: Mediastinal contours appear normal. Heart size is enlarged. Bones and chest wall: No suspicious bony lesions. Overlying soft tissues appear unremarkable. IMPRESSION: Cardiomegaly with prominent interstitial markings, concerning for pulmonary edema. Dictated by: Hayden Mcnulty M.D. on 02/02/2024 at 11:20 Approved by: Hayden cMnulty M.D. on 02/02/2024 at 11:21 CT scan - chest: Radiologist's Impression: [place] [address] CT Scan Report Signed Patient: Lakshmi Aquino MR#: [id number] : 1945 Acct:[id number] Age/Sex: 78 / F Date of Service: 02/02/24 Loc: ED Accession Number: [id number] Procedure: CT chest wo con Ordering Provider: Everette Martin MD PROCEDURE: CT CHEST WO CON INDICATIONS: Dyspnea TECHNIQUE: Noncontrast 5 mm thick sections acquired from the pulmonary apices to the posterior costophrenic angles. 1 mm lung window, 5 mm thick coronal and sagittal and 7 mm axial MIP reformats were then acquired. For radiation dose reduction, the following was used: automated exposure control, adjustment of mA and/or kV according to patient size. COMPARISON: [facility], CT, CT ANGIO CHEST ABDOMEN PELVIS, 09/03/2023, 1:06. FINDINGS: Image quality: Diagnostic. Lower Neck: No enlarged lymph nodes. Thyroid: No thyroid nodules which require sonographic follow up, per consensus guidelines. Axillae: No enlarged lymph nodes. Chest Wall: Unremarkable. Bones: Decreased osseous mineralization. Degenerative changes of spine. Mild superior endplate compression deformity of T3 is stable.. Lungs and Pleura: No pneumothorax or pleural effusions. Patchy areas of mild ground-glass with more consolidative opacities at left base. Heart: Heart size is normal. Mild coronary artery calcifications. No pericardial effusion. Thoracic Vessels: The aorta and pulmonary arteries demonstrate normal size. Atherosclerotic vascular calcifications. Mediastinum and Devi: No enlarged lymph nodes. Esophagus: No wall thickening. Small hiatal hernia. Upper Abdomen: Visualized upper abdomen solid organs and bowel loops appear normal. IMPRESSION: Patchy areas of ground-glass which may represent air trapping or infection. More consolidative opacities at the left base concerning for infection. Dictated by: Hayden Mcnulty M.D. on 02/02/2024 at 14:16 Approved by: Hayden Mcnulty M.D. on 02/02/2024 at 14:21 [facility] Narrative Medical decision making narrative: Patient brought in by ambulance from daughter's home for dyspnea and altered mental status. Patient is post be on oxygen at home but she states she took it off this morning. Uncertain why she took off she states. She is alert and oriented to self and date of . She is able tell me that she does have CHF and COPD. She states she took a hydrocodone yesterday and this morning. For chronic ?bone pain?. Patient states she has been urinating a lot. She is uncertain if she has had limb swelling. There is 1+ pitting edema of the legs. Patient denies any chest pain. She is very somnolent. Has pinpoint pupils. Narcan has been ordered. Blood glucose ordered as well. Breathing treatment already done by respiratory therapy without improvement in mental status. There are bibasilar rales. Denies any fall or injury. Blood sugar 180 Review of recent visit January 21, 2024, patient does have history of diabetes atrial fibrillation on Xarelto. Home oxygen 4 L After history and exam CBC CMP troponin BNP EKG chest x-ray breathing treatment Narcan respiratory panel, respiratory therapy evaluation consult [facility] Medical records reviewed: January 21, 2024 ER visit here Differential considered: Includes but not limited to PE COPD asthma pneumonia opiate overdose Lab Test results independently reviewed as above. Pertinent findings: WBC 15.3 hemoglobin 14.2 INR 2.1 sodium 133 blood glucose 190 PH 7.34 pCO2 48 PO2 249 Sodium 133 BUN 20 creatinine 1.0 troponin less than 0.012 respiratory panel negative BNP 436 Independently reviewed EKG atrial fibrillation rate [address] elevation or depression Imaging studies independently reviewed: Chest x-ray concerning for pulmonary edema CT chest patchy ground-glass appearance Consultations: 3:[address] Sanford, hospitalist, who will admit Treatments: DuoNeb Rocephin Zithromax Narcan normal saline Re-evaluations: 3:10 p.m.. Updated patient results and treatment plan. She does agree for admission. Still requiring supplemental oxygen Discussion: Appropriate for admission for IV antibiotics and continued breathing treatments. Patient has improved from non-rebreather back to her baseline 4 L nasal cannula. Diagnosis: Community acquired pneumonia Discharge Plan Departure Patient Disposition: Admitted as Observation Clinical Impression: Community acquired pneumonia Qualifiers: Laterality: unspecified laterality Qualified Code(s): J18.9 - Pneumonia, unspecified organism Admit Date/Time: 02/02/24 15:06 Admit Provider: Andrew Sanford
[2024-02-02 11:16] LABS: Alanine Aminotransferase 20 IU/L (<35); Albumin 3.7 g/dL (3.5-5.0); Albumin Globulin Ratio 1.4 (1.0-2.8); Alkaline Phosphatase 85 U/L (38-126); Aspartate Aminotransferase 29 IU/L (14-36); Blood Urea Nitrogen 20 mg/dL (7-17); Calcium 8.7 mg/dL (8.4-10.2); Carbon Dioxide 26 mmol/L (22-32); Chloride 103 mmol/L (98-107); Estimated Glomerular Filt Rate 58 mL/min (>60); Globulin 2.7 g/dL (1.7-4.1); Glucose 190 mg/dL (80-110); HEMOLYSIS < 15 (0-50); Potassium 4.8 mmol/L (3.4-5.1); Sodium 133 mmol/L (137-145); Total Protein 6.4 g/dL (6.3-8.2)
[2024-02-02 11:17] LABS: Lactate (Lactic Acid) 1.8 mmol/L (0.7-2.1)
[2024-02-02] MEDS: ONDANSETRON 4 MG/2 ML INJ IV (11:27)
[2024-02-02] MEDS: NALOXONE 0.4 MG/ML VIAL 0.2 MG IV ×2 (11:27→11:46)
[2024-02-02 11:28] LABS: NT-proBNP (BNP-Adult 18+) 436 pg/mL (<450); Troponin I < 0.012 ng/mL (0.01-0.034)
[2024-02-02 11:58] LABS: pH ABG 7.34 (7.35-7.45)
[2024-02-02 11:59] LABS: Allen Test for ABG Passed? Yes, Passed; Blood Gas Collection Site Left Radial; Fractionated Inspired Oxygen 80; HCO3 ABG 26 mmol/L (23-27); Oxygen Saturation ABG 100 % (95-100); PCO2 ABG 48.3 mmHg (35-45); PO2 ABG 249 mmHg (80-100); TCO2 ABG 27 mmol/L (23-27)
[2024-02-02 12:18] LABS: Adenovirus Not Detected (Not Detect); B. parapertussis Not Detected (Not Detecte); Bordetella pertussis Not Detected (Not Detect); Chlamydophila pneumoniae Not Detected (Not Detect); Coronavirus 229E Not Detected (Not Detect); Coronavirus HKU1 Not Detected (Not Detect); Coronavirus NL 63 Not Detected (Not Detect); Coronavirus OC43 Not Detected (Not Detect); Human Metapneumovirus Not Detected (Not Detect); Human Rhinovirus/Enterovirus Not Detected (Not Detect); Influenza A Not Detected (Not Detect); Influenza B Not Detected (Not Detect); Mycoplasma pneumoniae Not Detected (Not Detect); Parainfluenza Virus 1 Not Detected (Not Detect); Parainfluenza Virus 2 Not Detected (Not Detect); Parainfluenza Virus 3 Not Detected (Not Detect); Parainfluenza Virus 4 Not Detected (Not Detect); Respiratory Syncytial Virus Not Detected (Not Detect); SARS- CoV-2 Not Detected (Not Detecte)
--- NOTE | 2024-02-02 12:47 | DI.CT.S_ITS ---
PROCEDURE: CT CHEST WO CON INDICATIONS: Dyspnea TECHNIQUE: Noncontrast 5 mm thick sections acquired from the pulmonary apices to the posterior costophrenic angles. 1 mm lung window, 5 mm thick coronal and sagittal and 7 mm axial MIP reformats were then acquired. For radiation dose reduction, the following was used: automated exposure control, adjustment of mA and/or kV according to patient size. COMPARISON: [facility], CT, CT ANGIO CHEST ABDOMEN PELVIS, 09/03/2023, 1:06. FINDINGS: Image quality: Diagnostic. Lower Neck: No enlarged lymph nodes. Thyroid: No thyroid nodules which require sonographic follow up, per consensus guidelines. Axillae: No enlarged lymph nodes. Chest Wall: Unremarkable. Bones: Decreased osseous mineralization. Degenerative changes of spine. Mild superior endplate compression deformity of T3 is stable.. Lungs and Pleura: No pneumothorax or pleural effusions. Patchy areas of mild ground-glass with more consolidative opacities at left base. Heart: Heart size is normal. Mild coronary artery calcifications. No pericardial effusion. Thoracic Vessels: The aorta and pulmonary arteries demonstrate normal size. Atherosclerotic vascular calcifications. Mediastinum and Devi: No enlarged lymph nodes. Esophagus: No wall thickening. Small hiatal hernia. Upper Abdomen: Visualized upper abdomen solid organs and bowel loops appear normal. IMPRESSION: Patchy areas of ground-glass which may represent air trapping or infection. More consolidative opacities at the left base concerning for infection. Dictated by: Hayden Mcnulty M.D. on 02/02/2024 at 14:16 Approved by: Hayden Mcnulty M.D. on 02/02/2024 at 14:21
[2024-02-02] MEDS: SODIUM CHLORIDE 0.9% 500 ML 250 ML IV (14:16)
[2024-02-02] MEDS: cefTRIAXone 2,000 MG in SODIUM CHLORIDE 0.9% 100 ML 200 MG IV (15:00)
--- NOTE | 2024-02-02 15:20 | P.HP_ITS ---
History of Present Illness History of Present Illness Date Patient Seen: 02/02/24 Chief complaint: Alt ment status/weakness 3 days,hypoxia Narrative: The patient is a 78-year-old female with a history of chronic respiratory failure was brought in for dyspnea and altered mental status by ambulance. She stays with her daughter at her daughter's home. The patient may have taken her oxygen off for an unclear period of time. Upon arrival she was found to be confused and was given Narcan with some effect. There is a question of intolerance or adverse effects to Vicodin. The patient was then placed on a non-rebreather mask and ultimately could taper down to 4 L. She had a negative respiratory PCR in her mental status improved. She does have history of heart failure as well as COPD. She has not had recent leg edema. She relates feeling ill for several days to me. No major cough for dyspnea. She takes up to 3 Vicodin a day. She states she is currently homeless and sleeping on various friend's couches. She denies fevers, chills, nausea, or recent diarrhea. No abdominal pain. Her primary complaint is just feeling very sleepy. [facility] Social History Smoking Status: Never smoker Meds Home Medications and Allergies Home Medications Medication Instructions Recorded Confirmed Type atorvastatin 20 mg tablet 20 mg PO DAILY 02/02/24 02/02/24 History buspirone 10 mg tablet 10 mg PO 3XD 02/02/24 02/02/24 History cholecalciferol (vitamin D3) 25 1,000 mcg PO DAILY 02/02/24 02/02/24 History mcg (1,000 unit) capsule (Vitamin D3) cyclobenzaprine 10 mg tablet 10 mg PO TID 02/02/24 02/02/24 History diazepam 5 mg tablet 5 mg PO PRN PRN Muscle Spasm 02/02/24 02/02/24 History empagliflozin 10 mg tablet 10 mg PO DAILY 02/02/24 02/02/24 History (Jardiance) furosemide 20 mg tablet 20 mg PO DAILY 02/02/24 02/02/24 History hydrocodone 10 mg-acetaminophen 1 tab PO 3XD PRN Pain, Severe 02/02/24 02/02/24 History 325 mg tablet insulin glargine 100 unit/mL (3 unit SUBCUT 02/02/24 History mL) subcutaneous pen (Lantus Solostar U-100 Insulin) lisinopril 20 mg tablet 20 mg PO DAILY 02/02/24 02/02/24 History montelukast 10 mg tablet 10 mg PO ONCE PM 02/02/24 02/02/24 History ondansetron 8 mg disintegrating 8 mg PO Q8H PRN nausea/vomiting 02/02/24 02/02/24 History tablet pantoprazole 40 mg tablet,delayed 40 mg PO DAILY 02/02/24 02/02/24 History release pramipexole 1 mg tablet 1 mg PO QPM 02/02/24 02/02/24 History pregabalin 100 mg capsule 100 mg PO TID 02/02/24 02/02/24 History rivaroxaban 15 mg tablet (Xarelto) 15 mg PO QPM 02/02/24 02/02/24 History Allergies Allergy/AdvReac Type Severity Reaction Status Date / Time marijuana (cannabis) Allergy Verified 01/21/24 12:03 shellfish derived Allergy Verified 01/21/24 12:03 tramadol Allergy Verified 01/21/24 12:03 Review of Systems Review of Systems Narrative: All else reviewed and otherwise unremarkable except as noted in the history and physical. Exam Vital Signs (past 8 hours): - 02/02/24 10:51 02/02/24 10:53 02/02/24 10:53 Temperature Pulse Rate 78 78 Respiratory Rate 26 H Blood Pressure 118/56 L Pulse Oximetry 91 Oxygen Delivery Method Nasal Cannula Oxygen Flow Rate 5 02/02/24 11:00 02/02/24 11:00 02/02/24 11:02 Temperature 98.7 F Pulse Rate 80 77 Respiratory Rate 32 H 22 Blood Pressure 126/56 L 122/56 L Pulse Oximetry 86 L 86 L Oxygen Delivery Method Non -Rebreather Non -Rebreather Oxygen Flow Rate 02/02/24 11:15 02/02/24 11:15 02/02/24 11:30 Temperature Pulse Rate 78 Respiratory Rate 19 Blood Pressure 94/65 113/53 L Pulse Oximetry 85 L Oxygen Delivery Method Non -Rebreather Oxygen Flow Rate 02/02/24 11:30 02/02/24 11:45 02/02/24 11:45 Temperature Pulse Rate 86 78 Respiratory Rate 33 H 23 Blood Pressure 117/53 L Pulse Oximetry Oxygen Delivery Method Oxygen Flow Rate 02/02/24 12:00 02/02/24 12:01 02/02/24 12:01 Temperature Pulse Rate 77 79 Respiratory Rate 23 28 H Blood Pressure 115/53 L Pulse Oximetry 91 Oxygen Delivery Method Nasal Cannula Oxygen Flow Rate 5 02/02/24 12:30 02/02/24 14:16 Temperature Pulse Rate 74 Respiratory Rate 25 H Blood Pressure Pulse Oximetry 97 Oxygen Delivery Method Nasal Cannula Oxygen Flow Rate 4 Oxygen Delivery Method Nasal Cannula Oxygen Flow Rate 4 Narrative Exam Narrative: NAD, alert and oriented, fluent speech, calm.No teeth. Normocephalic skull, EOMI, anicteric sclera, symmetric pupils. Oropharynx unremarkable, no droop. Neck supple, midline trachea, no adenopathy. Lungs clear, normal rate and effort. Heart regular, no murmur gallop or rub. Abdomen is soft, non distended and non tender. Extremities are free of edema. Skin is free of rash or lesions. Joints are not swollen or deformed. Judgment appears to be abnormal. Objective Imaging Chest x-ray: Radiologist's impression: Cardiomegaly with prominent interstitial markings, concerning for pulmonary edema. Labs 02/02/24 10:45 02/02/24 10:59 Labs: Laboratory Results - last 24 hr 02/02/24 02/02/24 02/02/24 10:45 10:59 11:17 WBC 15.3 H RBC 5.64 H Hgb 14.2 Hct 44.6 MCV 79.0 L MCH 25.2 L MCHC 31.9 RDW 18.0 H Plt Count 299 Neut % (Auto) 72.4 Lymph % (Auto) 19.5 L [place] % (Auto) 6.2 Eos % (Auto) 1.1 L Baso % (Auto) 0.8 Neut # (Auto) 32047 H Lymph # (Auto) 3000 [place] # (Auto) 1000 H Eos # (Auto) 200 Baso # (Auto) 100 PT 24.6 H INR 2.1 H ABG Sample Site Left radial ABG pH 7.34 L ABG pCO2 48.3 H ABG pO2 249 H ABG HCO3 26 ABG Total CO2 27 ABG O2 Saturation 100 ABG Base Excess 0.0 FiO2 80 Sodium 133 L Potassium 4.8 Chloride 103 Carbon Dioxide 26 BUN 20 H Creatinine 1.00 Estimated GFR 58 L BUN/Creatinine Ratio 20.0 Glucose 190 H Lactate 1.8 Calcium 8.7 Total Bilirubin 1.0 AST 29 ALT 20 Alkaline Phosphatase 85 Troponin I < 0.012 NT-Pro-B Natriuret Pep 436 Total Protein 6.4 Albumin 3.7 Globulin 2.7 Albumin/Globulin Ratio 1.4 Chlamy pneumoniae PCR Adenovirus (PCR) B.parapertussis DNA PCR Coronavirus OC43 (PCR) Coronavirus HKU1 (PCR) Coronavirus 229E (PCR) SARS-CoV-2 (PCR) Coronavirus NL63 (PCR) Human Metapneumovir PCR Influenza Type A (PCR) Influenza Type B (PCR) M. pneumoniae (PCR) Parainfluenza 1 (PCR) Parainfluenza 2 (PCR) Parainfluenza 3 (PCR) Parainfluenza 4 (PCR) RSV (PCR) Entero/Rhino (PCR) 02/02/24 11:19 WBC RBC Hgb Hct MCV MCH MCHC RDW Plt Count Neut % (Auto) Lymph % (Auto) [place] % (Auto) Eos % (Auto) Baso % (Auto) Neut # (Auto) Lymph # (Auto) [place] # (Auto) Eos # (Auto) Baso # (Auto) PT INR ABG Sample Site ABG pH ABG pCO2 ABG pO2 ABG HCO3 ABG Total CO2 ABG O2 Saturation ABG Base Excess FiO2 Sodium Potassium Chloride Carbon Dioxide BUN Creatinine Estimated GFR BUN/Creatinine Ratio Glucose Lactate Calcium Total Bilirubin AST ALT Alkaline Phosphatase Troponin I NT-Pro-B Natriuret Pep Total Protein Albumin Globulin Albumin/Globulin Ratio Chlamy pneumoniae PCR Not detected Adenovirus (PCR) Not detected B.parapertussis DNA PCR Not detected Coronavirus OC43 (PCR) Not detected Coronavirus HKU1 (PCR) Not detected Coronavirus 229E (PCR) Not detected SARS-CoV-2 (PCR) Not detected Coronavirus NL63 (PCR) Not detected Human Metapneumovir PCR Not detected Influenza Type A (PCR) Not detected Influenza Type B (PCR) Not detected M. pneumoniae (PCR) Not detected Parainfluenza 1 (PCR) Not detected Parainfluenza 2 (PCR) Not detected Parainfluenza 3 (PCR) Not detected Parainfluenza 4 (PCR) Not detected RSV (PCR) Not detected Entero/Rhino (PCR) Not detected Assessment & Plan Assessment & Plan narrative: 1. Community-acquired pneumonia, present on admission and active. 2. Acute metabolic encephalopathy, present on admission and improving. This may be related to Vicodin. 3. Acute on chronic respiratory failure, hypoxic. Present on admission and improving. 4. Acute heart failure with no recent echo data available, present on admission and active. Plan: -diuresis with Lasix 40 IV q.12 hours. -monitor mental status. -monitor renal function. -wean off from oxygen towards baseline oxygen as able. she is full code. daughter is proxy decision maker. Time Spent With Patient Time with patient: 30 to 49 minutes with 50% spent counseling/coordinating care Quality MIPS - Admit I confirm the patient?s Advance Care Plan is present, Code status is documented, Surrogate decision maker is in patient?s record [If Yes, STOP here]: Yes MIPS - Meds 'Current medications' to include all prescriptions, [id number] products, herbals, cannabis/cannabidiol products, and vitamin/mineral/dietary (nutritional) supplements. I have utilized all available resources to obtain, update, or review the patient?s current medications. [If Yes, STOP here]: Yes
[2024-02-02] MEDS: AZITHROMYCIN 500 MG in DEXTROSE 5% IN WATER 250 ML 250 MG IV (15:57)
[2024-02-02] MEDS: SENNOSIDES 8.6 MG TABLET 17.2 MG PO (21:02)
[2024-02-03 00:36] VITALS: BP 129/52; PULSE 63; RESP 17; TEMP 36.7; O2SAT 94
[2024-02-03 04:00] VITALS: BP 130/76; PULSE 74; RESP 16; TEMP 36.7; O2SAT 96
[2024-02-03] MEDS: HYDROCODONE/ACET 5/325 TABLET 1 TAB PO (04:34)
--- NOTE | 2024-02-03 07:59 | P.PN_ITS ---
Subjective Subjective Interval history: She is doing well today. She notes that she is breathing better. She also indicates that she is prone to pneumonia. Details 3 episodes of altered level of consciousness which she does not believe is related to her pain medication. She has been using hydrocodone for a long time and only uses 1 sparingly. She reiterates that she was homeless and uses a walker. She has an oxygen concentrator uses oxygen primarily at night. She denies a history of retention. She did start Flexeril which she takes for spasms about once a day about a month ago and wonders if this is part of the problem. Exam Vital Signs (past 8 hours): - 02/03/24 00:36 02/03/24 04:00 Temperature 98.0 F 98.0 F Pulse Rate 63 74 Respiratory Rate 17 16 Blood Pressure 129/52 L 130/76 Pulse Oximetry 94 96 Oxygen Flow Rate 5 5 Oxygen Delivery Method Nasal Cannula Oxygen Flow Rate 5 Narrative Exam Narrative: NAD, alert and oriented. Fluent speech. Lungs are clear, normal rate and effort. Heart is regular, no murmur gallop or rub. Abdomen is soft, non distended. Extremities are free of edema. Objective Labs 02/03/24 08:08 02/03/24 08:08 Labs: Laboratory Results - last 24 hr 02/02/24 02/02/24 02/02/24 10:45 10:59 11:17 WBC 15.3 H RBC 5.64 H Hgb 14.2 Hct 44.6 MCV 79.0 L MCH 25.2 L MCHC 31.9 RDW 18.0 H Plt Count 299 Neut % (Auto) 72.4 Lymph % (Auto) 19.5 L [place] % (Auto) 6.2 Eos % (Auto) 1.1 L Baso % (Auto) 0.8 Neut # (Auto) 08076 H Lymph # (Auto) 3000 [place] # (Auto) 1000 H Eos # (Auto) 200 Baso # (Auto) 100 PT 24.6 H INR 2.1 H ABG Sample Site Left radial ABG pH 7.34 L ABG pCO2 48.3 H ABG pO2 249 H ABG HCO3 26 ABG Total CO2 27 ABG O2 Saturation 100 ABG Base Excess 0.0 FiO2 80 Sodium 133 L Potassium 4.8 Chloride 103 Carbon Dioxide 26 BUN 20 H Creatinine 1.00 Estimated GFR 58 L BUN/Creatinine Ratio 20.0 Glucose 190 H Lactate 1.8 Calcium 8.7 Total Bilirubin 1.0 AST 29 ALT 20 Alkaline Phosphatase 85 Troponin I < 0.012 NT-Pro-B Natriuret Pep 436 Total Protein 6.4 Albumin 3.7 Globulin 2.7 Albumin/Globulin Ratio 1.4 Chlamy pneumoniae PCR Adenovirus (PCR) B.parapertussis DNA PCR Coronavirus OC43 (PCR) Coronavirus HKU1 (PCR) Coronavirus 229E (PCR) SARS-CoV-2 (PCR) Coronavirus NL63 (PCR) Human Metapneumovir PCR Influenza Type A (PCR) Influenza Type B (PCR) M. pneumoniae (PCR) Parainfluenza 1 (PCR) Parainfluenza 2 (PCR) Parainfluenza 3 (PCR) Parainfluenza 4 (PCR) RSV (PCR) Entero/Rhino (PCR) 02/02/24 11:19 WBC RBC Hgb Hct MCV MCH MCHC RDW Plt Count Neut % (Auto) Lymph % (Auto) [place] % (Auto) Eos % (Auto) Baso % (Auto) Neut # (Auto) Lymph # (Auto) [place] # (Auto) Eos # (Auto) Baso # (Auto) PT INR ABG Sample Site ABG pH ABG pCO2 ABG pO2 ABG HCO3 ABG Total CO2 ABG O2 Saturation ABG Base Excess FiO2 Sodium Potassium Chloride Carbon Dioxide BUN Creatinine Estimated GFR BUN/Creatinine Ratio Glucose Lactate Calcium Total Bilirubin AST ALT Alkaline Phosphatase Troponin I NT-Pro-B Natriuret Pep Total Protein Albumin Globulin Albumin/Globulin Ratio Chlamy pneumoniae PCR Not detected Adenovirus (PCR) Not detected B.parapertussis DNA PCR Not detected Coronavirus OC43 (PCR) Not detected Coronavirus HKU1 (PCR) Not detected Coronavirus 229E (PCR) Not detected SARS-CoV-2 (PCR) Not detected Coronavirus NL63 (PCR) Not detected Human Metapneumovir PCR Not detected Influenza Type A (PCR) Not detected Influenza Type B (PCR) Not detected M. pneumoniae (PCR) Not detected Parainfluenza 1 (PCR) Not detected Parainfluenza 2 (PCR) Not detected Parainfluenza 3 (PCR) Not detected Parainfluenza 4 (PCR) Not detected RSV (PCR) Not detected Entero/Rhino (PCR) Not detected PFSH Social History household members: children Smoking Status: Never smoker alcohol intake: never Assessment & Plan Assessment & Plan narrative: 1. Community-acquired pneumonia, present on admission and active. 2. Acute metabolic encephalopathy, present on admission and improving. This may be related to Vicodin. 3. Acute on chronic respiratory failure, hypoxic. Present on admission and improving. 4. Acute heart failure with no recent echo data available, present on admission and active. Plan: -diuresis with Lasix 40 IV q.12 hours. We will continue this today. -monitor mental status. She is normalized today. -monitor renal function. This is normalized. -wean off from oxygen towards baseline oxygen as able. -we will advance activity, out of bed. she is full code. daughter is proxy decision maker. Estimated date of discharge is February 03. Quality VTE Deep Vein Thrombosis/Pulmonary Embolism Present on Admission: No
[2024-02-03 08:00] VITALS: BP 113/41; PULSE 68; RESP 16; TEMP 37.1; O2SAT 99
[2024-02-03 08:35] LABS: Add Manual Diff / Slide Review NO; Basophils Absolute Auto 100 /uL (0-100); Basophils Percent Auto 1.1 % (0-2); Eosinophils Absolute Auto 200 /uL (0-450); Eosinophils Percent Auto 1.7 % (2-4); Hematocrit 40.4 % (36-46); Hemoglobin 12.9 g/dL (12.0-16.0); Lymphocytes Absolute Auto 3300 /uL (1100-4500); Mean Corpuscular Hemoglobin 25.2 PG (26-34); Mean Corpuscular Volume 78.8 fL (80-100); Monocytes Absolute Auto 900 /uL (0-900); Monocytes Percent Auto 7.7 % (3-14); Neutrophils Absolute Auto 6800 /uL (1500-7000); Neutrophils Percent Auto 60.5 % (50-75); Platelet Count 255 X10^3/uL (150-400); Red Blood Cell Count 5.13 X10^6/uL (4.0-5.2); Red Cell Distribution Width 18.1 % (11.6-14.8); White Blood Cell Count 11.2 X10^3/uL (4.5-11.0)
[2024-02-03] MEDS: CHOLECALCIFEROL (VITAMIN D3) 1,000 UNIT TABLET 1000 UNIT PO (08:36)
[2024-02-03] MEDS: PREGABALIN 50 MG CAPSULE 100 MG PO ×3 (08:36→20:53)
[2024-02-03] MEDS: BUSPIRONE 5 MG TABLET 10 MG PO ×3 (08:36→20:52)
[2024-02-03] MEDS: PANTOPRAZOLE DR 40 MG TABLET PO (08:36)
[2024-02-03] MEDS: ATORVASTATIN 20 MG TABLET PO (08:36)
[2024-02-03] MEDS: FUROSEMIDE 20 MG TABLET PO (08:36)
[2024-02-03] MEDS: CYCLOBENZAPRINE 10 MG TABLET PO (08:36)
[2024-02-03 08:53] LABS: BUN Creatinine Ratio 17.5 (6-22); Blood Urea Nitrogen 14 mg/dL (7-17); Calcium 8.2 mg/dL (8.4-10.2); Carbon Dioxide 28 mmol/L (22-32); Chloride 108 mmol/L (98-107); Estimated Glomerular Filt Rate > 60 mL/min (>60); Glucose 92 mg/dL (80-110); HEMOLYSIS < 15 (0-50); Potassium 4.4 mmol/L (3.4-5.1); Sodium 136 mmol/L (137-145)
[2024-02-03] MEDS: HYDROCODONE/ACET 10/325 TABLET 1 TAB PO ×2 (08:56→21:09)
[2024-02-03 12:00] VITALS: BP 113/41; PULSE 68; RESP 16; TEMP 37.1; O2SAT 99
[2024-02-03] MEDS: cefTRIAXone 1,000 MG in SODIUM CHLORIDE 0.9% 100 ML 200 MG IV (14:50)
--- NOTE | 2024-02-03 14:56 | DIET.CONS ---
Dietary Consultation Note Admission Date: 02/02/2024 15:06 Assessment: 78 y F presented with dyspnea and altered mental status. Nutrition consulted for poor nutrition. Met with pt at bedside. Reports difficulty chewing due to no teeth, consumes puree/soft foods or tender vegetables. Dinners provided by individuals she stays with are often difficult for her to eat, i.e meat too tough to chew. Has appointment coming up to get dentures. She checks BG morning and night, low 100s. Pt reports no weight loss or change in appetite. No weight loss noted per limited wt hx in chart. Diet recall: B-Oatmeal or cream of wheat and milk L-Northern [place] yogurt, 16 oz iced tea D: varies, soups or mashed potatoes/soft sides 1 Ensure/day Ht: 162.56 cm Wt: 101.106 kg BMI: 38.2 UBW: 90-91 kg per pt; noted lasix Last BM: 01/31/24 (02/02/24 16:42) MNA: 5 [place] Score: 18 Diet: 02/02/24 Dinner General (Regular) Diet Diet Modifications: soft (no teeth) Food Texture: Level 7 - Regular Liquid Consistency: Level 0 - Thin Nutrition Percent Meal Consumed 100% 02/03/24 10:51 Percent Meal Consumed 100% 02/03/24 10:00 Percent Meal Consumed 75% 02/02/24 19:34 Labs: RBC 5.13 X10^6/uL (4.0-5.2) 02/03/24 08:08 Hgb 12.9 g/dL (12.0-16.0) 02/03/24 08:08 Hct 40.4 % (36-46) 02/03/24 08:08 Creatinine 0.80 mg/dL (0.52-1.04) 02/03/24 08:08 Lactate 1.8 mmol/L (0.7-2.1) 02/02/24 10:59 NT-Pro-B Natriuret Pep 436 pg/mL (<450) 02/02/24 10:59 Nutrition Diagnosis: Biting/Chewing difficulty r/t complete edentulism as evidenced by decrease in protein-energy intake per diet recall and pt assessment Interventions: 1. Discussed soft protein options for dinner and daytime that are realistic for patient based on situation 2. Coordinated with unit host/kitchen on appropriate texture of food per pt preference EER: [id number] kcals (14-15 kcals/kg per BMI) 80-90 g protein (1.2 g/kg per acute HF) Monitoring/Evaluations: po intakes, f/u prn Electronically Signed by: Aleshia Shields 02/03/24 14:56 Clinical Dietitian [address] [address]
[2024-02-03 16:00] VITALS: BP 113/48; PULSE 78; RESP 16; TEMP 36.3; O2SAT 96
[2024-02-03] MEDS: RIVAROXABAN 10 MG TABLET 15 MG PO (16:10)
[2024-02-03] MEDS: AZITHROMYCIN 500 MG in DEXTROSE 5% IN WATER 250 ML 250 MG IV (16:10)
[2024-02-03] MEDS: MONTELUKAST 10 MG TABLET PO (16:10)
[2024-02-03 20:15] VITALS: BP 132/78; PULSE 74; RESP 18; TEMP 36.7; O2SAT 99
[2024-02-03] MEDS: PRAMIPEXOLE 0.25 MG TABLET 1 MG PO (20:52)
[2024-02-03] MEDS: SENNOSIDES 8.6 MG TABLET 17.2 MG PO (20:52)
[2024-02-04 00:29] VITALS: BP 116/49; PULSE 74; RESP 18; TEMP 36.1; O2SAT 94
[2024-02-04 04:47] VITALS: BP 124/48; PULSE 87; RESP 18; TEMP 36.1; O2SAT 94
[2024-02-04 06:21] LABS: Add Manual Diff / Slide Review NO; Basophils Absolute Auto 100 /uL (0-100); Eosinophils Absolute Auto 100 /uL (0-450); Eosinophils Percent Auto 1.3 % (2-4); Hematocrit 38.9 % (36-46); Hemoglobin 12.6 g/dL (12.0-16.0); Lymphocytes Absolute Auto 3000 /uL (1100-4500); Lymphocytes Percent Auto 26.2 % (25-40); Mean Corpuscular HGB Conc 32.3 % (30-36); Mean Corpuscular Hemoglobin 25.5 PG (26-34); Monocytes Absolute Auto 1000 /uL (0-900); Neutrophils Absolute Auto 7000 /uL (1500-7000); Neutrophils Percent Auto 62.5 % (50-75); Platelet Count 265 X10^3/uL (150-400); Red Blood Cell Count 4.92 X10^6/uL (4.0-5.2); Red Cell Distribution Width 18.1 % (11.6-14.8); White Blood Cell Count 11.3 X10^3/uL (4.5-11.0)
[2024-02-04 06:37] LABS: BUN Creatinine Ratio 18.1 (6-22); Blood Urea Nitrogen 15 mg/dL (7-17); Calcium 8.6 mg/dL (8.4-10.2); Carbon Dioxide 29 mmol/L (22-32); Chloride 105 mmol/L (98-107); Estimated Glomerular Filt Rate > 60 mL/min (>60); Glucose 154 mg/dL (80-110); HEMOLYSIS < 15 (0-50); Potassium 4.7 mmol/L (3.4-5.1); Sodium 136 mmol/L (137-145)
[2024-02-04] MEDS: HYDROCODONE/ACET 10/325 TABLET 1 TAB PO (07:01)
[2024-02-04 08:00] VITALS: BP 106/51; PULSE 83; RESP 18; TEMP 36.5; O2SAT 95
[2024-02-04] MEDS: BUSPIRONE 5 MG TABLET 10 MG PO ×2 (08:41→14:50)
[2024-02-04] MEDS: PREGABALIN 50 MG CAPSULE 100 MG PO ×2 (08:41→14:50)
[2024-02-04] MEDS: FUROSEMIDE 20 MG TABLET PO (08:41)
[2024-02-04] MEDS: PANTOPRAZOLE DR 40 MG TABLET PO (08:41)
[2024-02-04] MEDS: CHOLECALCIFEROL (VITAMIN D3) 1,000 UNIT TABLET 1000 UNIT PO (08:42)
[2024-02-04] MEDS: ATORVASTATIN 20 MG TABLET PO (08:42)
[2024-02-04 09:42] VITALS: O2SAT 96
--- NOTE | 2024-02-04 10:53 | PC.NURSE ---
Spoke with CM and provider about pt transportation needs: pt needs transportation home, lives on second floor, needs oxygen to safely make it home. Also spoke with provider about patient's lung sounds that are different from yesterday (clear/dim yesterday and coarse and fine crackles today).
--- NOTE | 2024-02-04 11:32 | P.DS_ITS ---
History of Present Illness History of Present Illness Date Patient Seen: 02/04/24 Time Patient Seen: 09:40 Chief complaint: Alt ment status/weakness 3 days,hypoxia Narrative: Date Patient Seen: 02/02/24 Chief complaint: Alt ment status/weakness 3 days,hypoxia Narrative: The patient is a 78-year-old female with a history of chronic respiratory failure was brought in for dyspnea and altered mental status by ambulance. She stays with her daughter at her daughter's home. The patient may have taken her oxygen off for an unclear period of time. Upon arrival she was found to be confused and was given Narcan with some effect. There is a question of intolerance or adverse effects to Vicodin. The patient was then placed on a non-rebreather mask and ultimately could taper down to 4 L. She had a negative respiratory PCR in her mental status improved. She does have history of heart failure as well as COPD. She has not had recent leg edema. She relates feeling ill for several days to me. No major cough for dyspnea. She takes up to 3 Vicodin a day. She states she is currently homeless and sleeping on various friend's couches. She denies fevers, chills, nausea, or recent diarrhea. No abdominal pain. Her primary complaint is just feeling very sleepy. Discharge Providers Provider Date of admission: 02/02/24 15:06 Discharge Date: 02/04/24 Consults: 02/02/24 16:58 Consult to Dietitian, Adult Routine Comment: Reason For Exam: Poor nutrition Consult to [facility] [place] [facility] Care Nurse Routine Comment: Consult to Pastoral Services Routine Comment: In need of community resources Discharge provider: Oseas Patterson MD Summary Hospital Course Discharge Diagnosis: 1. Community-acquired pneumonia, present on admission and active. 2. Acute metabolic encephalopathy, present on admission and improving. This may be related to Vicodin. 3. Acute on chronic respiratory failure, hypoxic. Present on admission and improving. 4. Acute heart failure with no recent echo data available, present on admission and active. Hospital Course: Chest xray: Cardiomegaly with prominent interstitial markings, concerning for pulmonary edema. Chest CT: Patchy areas of ground-glass which may represent air trapping or infection. More consolidative opacities at the left base concerning for infection. Hospital course: Patient was admitted then administered IV antibiotics and IV diuresis. She felt significantly better and at baseline at the time of discharge, and was interested in discharge home. Arrangement made for oral outpatient antibiotic therapy and ongoing diuretic management. Follow up with her primary care provider. Status at Discharge Cognitive/behavioral status at discharge: oriented Functional status at discharge: independent ambulation Overall status at discharge: patient is back to baseline Time Spent with Patient Time spent: Greater than 30 minutes Exam Vital Signs (past 8 hours): - 02/04/24 04:47 02/04/24 07:00 02/04/24 08:00 Temperature 96.9 F L 97.7 F Pulse Rate 87 83 Respiratory Rate 18 18 Blood Pressure 124/48 L 106/51 L Pulse Oximetry 94 95 Oxygen Delivery Method Nasal Cannula Oxygen Flow Rate 3 2 02/04/24 09:42 Temperature Pulse Rate Respiratory Rate Blood Pressure Pulse Oximetry 96 Oxygen Delivery Method Nasal Cannula Oxygen Flow Rate 3 Oxygen Delivery Method Nasal Cannula Oxygen Flow Rate 3 Narrative Exam Narrative: GENERAL: This is a well-nourished, well-developed patient, in no apparent distress. Oxygen nasal cannula in place. HEAD: Atraumatic. Normocephalic. No temporal or scalp tenderness. EYES: Pupils equal round and reactive. Extraocular motions intact. No scleral icterus. No injection or drainage. ENT: Mucous membranes pink and moist. NECK: Trachea midline. No JVD, bruits or lymphadenopathy. Supple, nontender, no meningeal signs. CARDIOVASCULAR: Regular rate and rhythm without murmurs, gallops, or rubs. RESPIRATORY: Coarse breath sounds, scattered basilar crackles. GASTROINTESTINAL: Abdomen soft, non-tender, nondistended. EXTREMITIES: No clubbing, cyanosis, or edema. BACK: Nontender without deformity or crepitance. No flank tenderness. NEUROLOGIC: Alert, oriented, speech fluent, full upper and lower motor strength, no focal deficits evident. DERMATOLOGIC: No rashes or skin lesions. Objective Labs 02/04/24 05:17 02/04/24 05:17 Labs: Laboratory Results - last 24 hr 02/04/24 05:17 WBC 11.3 H RBC 4.92 Hgb 12.6 Hct 38.9 MCV 79.0 L MCH 25.5 L MCHC 32.3 RDW 18.1 H Plt Count 265 Neut % (Auto) 62.5 Lymph % (Auto) 26.2 [place] % (Auto) 9.0 Eos % (Auto) 1.3 L Baso % (Auto) 1.0 Neut # (Auto) 7000 Lymph # (Auto) 3000 [place] # (Auto) 1000 H Eos # (Auto) 100 Baso # (Auto) 100 Sodium 136 L Potassium 4.7 Chloride 105 Carbon Dioxide 29 BUN 15 Creatinine 0.83 Estimated GFR > 60 BUN/Creatinine Ratio 18.1 Glucose 154 H Calcium 8.6 PFSH Social History household members: children Smoking Status: Never smoker alcohol intake: never Discharge Plan Discharge Plan Patient Disposition: Home Provider Discharge Comment: Discharge home with daughter to [facility] (will need transportation), followup with PCP Dr. Lawanda Gonzalez 1 week Discharge orders & Medications Prescriptions: New cefuroxime axetil 500 mg tablet 500 mg PO BID Qty: 10 0RF azithromycin 250 mg tablet 250 mg PO DAILY Qty: 3 0RF Continued lisinopril 20 mg tablet 20 mg PO DAILY Xarelto 15 mg tablet 15 mg PO QPM diazepam 5 mg tablet 5 mg PO PRN PRN (Reason: Muscle Spasm) pantoprazole 40 mg tablet,delayed release (DR/EC) 40 mg PO DAILY Jardiance 10 mg tablet 10 mg PO DAILY furosemide 20 mg tablet 20 mg PO DAILY cyclobenzaprine 10 mg tablet 10 mg PO DAILY pramipexole 1 mg tablet 1 mg PO QPM atorvastatin 20 mg tablet 20 mg PO DAILY buspirone 10 mg tablet 10 mg PO TID montelukast 10 mg tablet 10 mg PO ONCE PM ondansetron 8 mg tablet,disintegrating 8 mg PO Q8H PRN (Reason: nausea/vomiting) pregabalin 100 mg capsule 100 mg PO TID hydrocodone-acetaminophen 10-325 mg tablet 1 tab PO TID cholecalciferol (vitamin D3) [Vitamin D3] 25 mcg (1,000 unit) Capsule 1,000 mcg PO DAILY insulin glargine [Lantus Solostar U-100 Insulin] 100 unit/mL (3 mL) insulin pen 24 unit SUBCUT BID Patient Comments: [NO ORIGINAL SIG] ipratropium-albuterol 0.5 mg-3 mg(2.5 mg base)/3 mL solution for nebulization 3 ml inhalation DAILY PRN (Reason: SOB) albuterol sulfate 2.5 mg /3 mL (0.083 %) solution for nebulization 2.5 mg inhalation Q4H PRN (Reason: wheezing) potassium chloride 10 mEq tablet extended release 10 meq PO BID lidocaine 5 % adhesive patch,medicated 1 patch topical DAILY budesonide 0.5 mg/2 mL suspension for nebulization 0.5 mg inhalation DAILY albuterol sulfate 90 mcg/actuation HFA aerosol inhaler 2 puff inhalation Q6H PRN (Reason: wheezing) Stiolto Respimat 2.5-2.5 mcg/actuation mist 2 puff inhalation DAILY Diet/Activity/Treatments Diet: Regular Visit Report/Discharge Packet Stand Alone Forms: Patient Portal/API, Stroke Signs & Symptoms Discharge Data Attending Provider: Andrew Sanford Admit Date/Time: 02/02/24 15:06 Quality VTE Deep Vein Thrombosis/Pulmonary Embolism Present on Admission: No PROFEE Charge Codes Discharge inpatient/observation: [id number]
--- NOTE | 2024-02-04 14:13 | RT ---
ACCORDING TO PT, PT RECEIVES O2 SERVICES THROUGH [facility]. PT IS BEING DISCHARGED AND IS ON 3 LPM N/C. [facility] CONTACTED. MSG LEFT ON [facility]S [employer] COORDINATOR'S VM STATING PT INFO AND THAT PT WILL BE GIVEN [facility] E-CYLINDER FOR TRANSFER PURPOSES.
[2024-02-04] MEDS: cefTRIAXone 1,000 MG in SODIUM CHLORIDE 0.9% 100 ML 200 MG IV (14:50)
[2024-02-04 15:13] VITALS: BP 121/46; PULSE 80; RESP 16; O2SAT 94
--- NOTE | 2024-02-04 15:19 | CM.DPC ---
DCP-Update BLS confirmed for 4:00pm today, RT has arranged for an O2 tank to accompany patient, family will return the tank in the next few days. No further DCP needs identified at this time.
[2024-02-04] MEDS: AZITHROMYCIN 250 MG TABLET 500 MG PO (15:38)
== END 2024-02-04 16:43 | disposition home or self-care (01) ==
LOC: ED 11:06 → AC 15:07
PROVIDERS: Internal Medicine Gastroenterology; Admitting Provider Hospitalist; Emergency Provider Emergency Medicine; Referring Provider Emergency Medicine; Visit Provider Hospitalist
DX: J18.9 Pneumonia, unspecified organism (principal); J96.21 Acute and chronic respiratory failure with hypoxia; I50.9 Heart failure, unspecified; G93.41 Metabolic encephalopathy; Z99.81 Dependence on supplemental oxygen
CPT/HCPCS: 36415; 36600; 71045; 71250; 80048; 80053; 82805; 83605; 83880; 84484; 85025; 85610; 87040; 87633; 93005; 94762; 96365; 96366; 96367; 96375; 99285; G0378; J0696; J2310; J2405

== ENCOUNTER 2024-03-06 11:17 | Emergency (ER) | payer OTHER, MEDICAID, SELFPAY ==
[2024-02-02 16:42] VITALS: BMI 38.2
[2024-03-06] VITALS (17 sets, daily range): BP systolic 107–153; BP diastolic 53–63; PULSE 77–94; RESP 18–24; TEMP 36.4; O2SAT 91–99; BMI 34.1
--- NOTE | 2024-03-06 11:32 | ED_ITS ---
HPI - General Adult General Chief complaint: Abdominal Pain Stated complaint: constipation Time Seen by Provider: 03/06/24 11:29 History of Present Illness HPI narrative: 79-year-old female with history of COPD, chronic home oxygen at 2 liters/minute flow rate, has not had a bowel movement for 1 week, increasing abdominal discomfort, lower right and left, no middle or upper right or upper left discomfort, no nausea or vomiting. She has concerns that she might be constipated. She has not felt febrile. No black or red stools. She has not had recent or new cough. Related Data Home Medications Medication Instructions Recorded Confirmed atorvastatin 20 mg tablet 20 mg PO DAILY 02/02/24 02/02/24 buspirone 10 mg tablet 10 mg PO TID 02/02/24 02/03/24 cholecalciferol (vitamin D3) 25 1,000 mcg PO DAILY 02/02/24 02/02/24 mcg (1,000 unit) capsule (Vitamin D3) cyclobenzaprine 10 mg tablet 10 mg PO DAILY 02/02/24 02/03/24 diazepam 5 mg tablet 5 mg PO PRN PRN Muscle Spasm 02/02/24 02/02/24 empagliflozin 10 mg tablet 10 mg PO DAILY 02/02/24 02/02/24 (Jardiance) furosemide 20 mg tablet 20 mg PO DAILY 02/02/24 02/02/24 hydrocodone 10 mg-acetaminophen 1 tab PO TID 02/02/24 02/03/24 325 mg tablet insulin glargine 100 unit/mL (3 24 unit SUBCUT BID 02/02/24 02/03/24 mL) subcutaneous pen (Lantus Solostar U-100 Insulin) lisinopril 20 mg tablet 20 mg PO DAILY 02/02/24 02/02/24 montelukast 10 mg tablet 10 mg PO ONCE PM 02/02/24 02/02/24 ondansetron 8 mg disintegrating 8 mg PO Q8H PRN nausea/vomiting 02/02/24 02/02/24 tablet pantoprazole 40 mg tablet,delayed 40 mg PO DAILY 02/02/24 02/02/24 release pramipexole 1 mg tablet 1 mg PO QPM 02/02/24 02/02/24 pregabalin 100 mg capsule 100 mg PO TID 02/02/24 02/02/24 rivaroxaban 15 mg tablet (Xarelto) 15 mg PO QPM 02/02/24 02/02/24 albuterol sulfate 2.5 mg/3 mL 2.5 mg inhalation Q4H PRN wheezing 02/03/24 02/03/24 (0.083 %) solution for nebulization albuterol sulfate 90 mcg/actuation 2 puff inhalation Q6H PRN wheezing 02/03/24 02/03/24 aerosol inhaler budesonide 0.5 mg/2 mL suspension 0.5 mg inhalation DAILY 02/03/24 02/03/24 for nebulization ipratropium 0.5 mg-albuterol 3 mg 3 ml inhalation DAILY PRN SOB 02/03/24 02/03/24 (2.5 mg base)/3 mL nebulization soln lidocaine 5 % topical patch 1 patch topical DAILY 02/03/24 02/03/24 potassium chloride 10 mEq 10 meq PO BID 02/03/24 02/03/24 tablet,extended release tiotropium 2.5 mcg-olodaterol 2.5 2 puff inhalation DAILY 02/03/24 02/03/24 mcg/actuation mist for inhalation (Stiolto Respimat) Previous Rx's Medication Instructions Recorded azithromycin 250 mg tablet 250 mg PO DAILY #3 tabs 02/04/24 Allergies Allergy/AdvReac Type Severity Reaction Status Date / Time marijuana (cannabis) Allergy Verified 03/06/24 11:29 shellfish derived Allergy Verified 03/06/24 11:29 tramadol Allergy Verified 03/06/24 11:29 Review of Systems Review of Systems Narrative: as per HPI Patient History Social History household members: children Smoking Status: Never smoker alcohol intake: never Smoking Status: Never smoker Substance Use Type: does not use Exam Narrative Exam Narrative: GENERAL: Well-developed patient, in mild distress. HEAD: Atraumatic. Normocephalic. EYES: Pupils equal round and reactive. Extraocular motions intact. No scleral icterus. No injection or drainage. ENT: Nose without bleeding, purulent drainage. Throat without erythema, tonsillar hypertrophy or exudate. Airway patent. NECK: Trachea midline. Non tender CARDIOVASCULAR: Regular rate and rhythm without murmurs, gallops, or rubs. RESPIRATORY: Clear to auscultation. Breath sounds equal bilaterally. No wheezes, rales, or rhonchi. GASTROINTESTINAL: Abdomen soft, mild tenderness right lower quadrant and left lower quadrant, nondistended. EXTREMITIES: No edema or joint tenderness. BACK: Nontender without deformity or crepitance. No flank tenderness. NEURO: AOx3. SKIN: No rash or erythema of visible areas Initial Vital Signs Initial Vital Signs: Vital Signs Temperature 97.5 F L 03/06/24 11:29 Pulse Rate 94 H 03/06/24 11:29 Respiratory Rate 24 03/06/24 11:29 Blood Pressure 132/59 L 03/06/24 11:29 Pulse Oximetry 91 03/06/24 11:29 Oxygen Delivery Method Room Air 03/06/24 11:29 Course Orders Ordered: ED Orders 03/06/24 13:06 CT abdomen pelvis wo con Stat 03/06/24 13:10 Complete Blood Count AUTO DIFF Stat Comprehensive Metabolic Panel Stat Lipase Stat 03/06/24 15:00 Urinalysis and Microscopic Stat Discontinued Medications Ipratropium [place] (Ipratropium 0.5 Mg/2.5 Ml Neb) 1.5 mg INH NOW ONE Stop: 03/06/24 13:03 Last Admin: 03/06/24 14:00 Dose: 1.5 mg Documented By: BRITTANY Morphine Sulfate (Morphine 4 Mg/Ml Inj) 4 mg IV NOW ONE Stop: 03/06/24 13:11 Last Admin: 03/06/24 13:18 Dose: 4 mg Documented By: MUSA Vital Signs Vital signs: Vital Signs - 8 hr 03/06/24 14:00 03/06/24 14:01 03/06/24 14:32 Pulse Rate 77 78 82 Respiratory Rate 18 Blood Pressure Pulse Oximetry 94 98 95 Oxygen Delivery Method Nasal Cannula Oxygen Flow Rate 2 Fraction of Inspired Oxygen 28 03/06/24 14:33 03/06/24 14:33 03/06/24 15:00 Pulse Rate 83 77 Respiratory Rate Blood Pressure 153/63 H Pulse Oximetry 92 98 Oxygen Delivery Method Oxygen Flow Rate Fraction of Inspired Oxygen 03/06/24 15:01 03/06/24 15:01 03/06/24 15:30 Pulse Rate 77 Respiratory Rate Blood Pressure 118/53 L 136/61 Pulse Oximetry 95 Oxygen Delivery Method Oxygen Flow Rate Fraction of Inspired Oxygen 03/06/24 15:30 03/06/24 17:37 03/06/24 17:39 Pulse Rate 79 81 Respiratory Rate Blood Pressure 107/58 L Pulse Oximetry 92 95 Oxygen Delivery Method Oxygen Flow Rate Fraction of Inspired Oxygen 03/06/24 17:39 03/06/24 17:47 03/06/24 18:01 Pulse Rate 80 77 Respiratory Rate Blood Pressure 130/60 Pulse Oximetry 96 97 Oxygen Delivery Method Oxygen Flow Rate Fraction of Inspired Oxygen 03/06/24 18:30 Pulse Rate Respiratory Rate Blood Pressure 143/63 H Pulse Oximetry Oxygen Delivery Method Oxygen Flow Rate Fraction of Inspired Oxygen Medical Decision Making Lab Data Lab results reviewed: Yes I reviewed the patient's lab results. 03/06/24 13:10 03/06/24 13:10 Labs: Lab Results 03/06/24 03/06/24 Range/Units 13:10 15:00 WBC 9.9 (4.5-11.0) X10^3/uL RBC 5.17 (4.0-5.2) X10^6/uL Hgb 13.3 (12.0-16.0) g/dL Hct 40.1 (36-46) % MCV 77.6 L (80-100) fL MCH 25.7 L (26-34) PG MCHC 33.1 (30-36) % RDW 17.8 H (11.6-14.8) % Plt Count 270 (150-400) X10^3/uL Neut % (Auto) 69.1 (50-75) % Lymph % (Auto) 21.5 L (25-40) % Mcdonald % (Auto) 6.7 (3-14) % Eos % (Auto) 2.0 (2-4) % Baso % (Auto) 0.7 (0-2) % Neut # (Auto) 6900 (1929-3309) /uL Lymph # (Auto) 2100 (8999-9934) /uL Mcdonald # (Auto) 700 (0-900) /uL Eos # (Auto) 200 (0-450) /uL Baso # (Auto) 100 (0-100) /uL Sodium 140 (137-145) mmol/L Potassium 4.4 (3.4-5.1) mmol/L Chloride 109 H (98-107) mmol/L Carbon Dioxide 26 (22-32) mmol/L BUN 20 H (7-17) mg/dL Creatinine 0.79 (0.52-1.04) mg/dL Estimated GFR > 60 (>60) mL/min BUN/Creatinine Ratio 25.3 H (6-22) Glucose 72 L (80-110) mg/dL Calcium 8.7 (8.4-10.2) mg/dL Total Bilirubin 0.7 (0.2-1.3) mg/dL AST 29 (14-36) IU/L ALT 12 (<35) IU/L Alkaline Phosphatase 83 (38-126) U/L Total Protein 6.1 L (6.3-8.2) g/dL Albumin 3.6 (3.5-5.0) g/dL Globulin 2.5 (1.7-4.1) g/dL Albumin/Globulin Ratio 1.4 (1.0-2.8) Lipase 39 (23-300) U/L Urine Color Yellow Urine Appearance Sl cloudy Urine pH 5.5 (4.5-8.0) Ur Specific [employer] [place] 1.020 (1.000-1.035) Urine Protein Negative (Negative) Urine Glucose (UA) 3+ H (Negative) g/dL Urine Ketones Negative (NEGATIVE) Urine Occult Blood Negative (Negative) Urine Nitrate Negative (Negative) Urine Bilirubin Negative (NEGATIVE) Urine Urobilinogen 0.2 (0.2) E.U./dL Ur Leukocyte Esterase Negative (NEGATIVE) Urine RBC 0-1/hpf (0-5/HPF) Urine WBC 0-1/hpf (0-5/HPF) Ur Squamous Epith Cells 0-1 /hpf (0-5/HPF) Urine Bacteria Occasional (0-1) (None) Ur Culture Indicated? Cult not indicated Vol Urine Centrifuged 10ml (spun) Imaging Data Chest x-ray: Radiologist's Impression: [address] [address] XRay Report Signed Patient: Lakshmi Aquino MR#: [id number] : 1945 Acct:[id number] Age/Sex: 79 / F Date of Service: 03/06/24 Loc: ED Accession Number: [id number] Procedure: XR chest 1V Ordering Provider: Kt Mckeon MD PROCEDURE: XR CHEST 1V INDICATIONS: crackles upon auscultation TECHNIQUE: One view of the chest was acquired. COMPARISON: [facility], CR, XR CHEST 1V, 02/02/2024, 11:01. FINDINGS: Surgical changes and devices: None. Lungs and pleura: Mild increased vascularity. There is coarsening at the right base with trace costophrenic angle blunting. Mediastinum: Mediastinal contours appear normal. Heart size is enlarged. Bones and chest wall: No suspicious bony lesions. Overlying soft tissues appear unremarkable. IMPRESSION: Coarsening of the right base. This could represent dependent change, atelectasis versus developing pneumonia. Trace right costophrenic angle blunting suggestive of minimal effusion. Dictated by: Gini Manzano M.D. on 03/06/2024 at 12:24 Approved by: Gini Manzano M.D. on 03/06/2024 at 12:25 CT scan - abdomen/pelvis: Radiologist's Impression: [place] [address] CT Scan Report Signed Patient: Lakshmi Aquino MR#: [id number] : 1945 Acct:[id number] Age/Sex: 79 / F Date of Service: 03/06/24 Loc: ED Accession Number: [id number] Procedure: CT abdomen pelvis wo con Ordering Provider: Kt Mckeon MD PROCEDURE: CT ABDOMEN PELVIS WO CON INDICATIONS: abd pain, last BM 7d ago TECHNIQUE: Axial sections were acquired from the lung bases to the pubic symphysis. Coronal and sagittal reformats were performed. For radiation dose reduction, the following was used: automated exposure control, adjustment of mA and/or kV according to patient size. COMPARISON: [facility], CT, CT CHEST ABDOMEN PELVIS WITHOUT CONTRAST, 09/02/2023, 18:26. FINDINGS: Image quality: Diagnostic. Lower Chest: Calcifications. URINARY: Right Kidney: No stones or hydronephrosis. . Right Ureter: No hydroureter. Left Kidney: No obstruction. Inferior pole calcification is present measuring 1.3 by 0.9 cm. Hounsfield units measuring 939. No obstruction. Left Ureter: No hydroureter. Bladder: Normal wall thickness. No stones. ABDOMEN: Liver: No contour-deforming solid mass. Gallbladder: Removed Biliary ducts: No biliary dilation. Pancreas: No ductal dilation. Spleen: Size is within normal limits. Adrenal Glands: No adrenal nodules. Stomach and Bowel: Normal colonic caliber, without significant wall thickening. Moderate colonic stool particularly within rectum. No gross obstruction. Peritoneum: No abnormal intraperitoneal fluid. No free air. Ventral Wall: No hernia. Abdominal Nodes: No enlarged retroperitoneal or mesenteric lymph nodes. Vessels: Aorta and inferior vena cava are normal in size. PELVIS: Pelvic Organs: Unremarkable. Pelvic Nodes: Unremarkable. Miscellaneous: No inguinal hernias are seen. Bones: Unremarkable. IMPRESSION: Non-obstructing left renal calculus. Moderate colonic stool particularly within the rectum without gross obstruction. Dictated by: Gini Manzano M.D. on 03/06/2024 at 14:13 Approved by: Gini Manzano M.D. on 03/06/2024 at 14:15 [facility] Narrative Medical decision making narrative: 79-year-old female with history of constipation, last bowel movement 1 week ago, living with daughter in [facility], states that she is homeless from prior residence in [place] with other family members, she has been sleeping on the couch of her daughter, but she feels that this living arrangement seems satisfactory at this time. History of COPD, same oxygen at home, considered single-view x-ray abdomen but patient was unable to tolerate position due to her COPD, trial of SVN Atrovent, CT abdomen and pelvis imaging requested noncontrast. Other labs pending. Patient was able to tolerate CT imaging, results imported, moderate colonic stool burden noted, no obstructive pattern, no acute changes. Trial of enema. Patient has PVR 700mL, baltazar placed. Good response to enemas, profused nonbloody stoolng, improved symptoms. Baltazar removed, hopefully can void easier with resolution/improvement constipation symptoms. Consider further GI cleanout with OTC magnesium citrate. Return precautions, BLS transport back home Discharge Plan Departure Patient Disposition: Home Clinical Impression: Abdominal pain, Constipation Instructions: DI for Abdominal Pain-Adult, DI for Constipation Activity Restrictions/Additional Instructions: Lower abdominal discomfort, initial attempt to perform x-ray limited by COPD, breathing treatment given, CT abdomen and pelvis then was successfully accomplished, showing no acute changes, however did show colonic stool burden, enema was given, with good results, you felt better. Breathing treatment was given for COPD, at your current usual oxygen requirements. Further treatments at home with her regular regimen. Consider drinking increased fluids. Consider [id number] magnesium citrate 1/2 bottle once home, then 1/4 bottle tomorrow morning if needed. Recheck symptoms with your regular provider in the next couple of days. Return to this/nearest emergency department for any change worsening symptoms or any concerns prior Prescriptions: No Action lisinopril 20 mg tablet 20 mg PO DAILY Xarelto 15 mg tablet 15 mg PO QPM diazepam 5 mg tablet 5 mg PO PRN PRN (Reason: Muscle Spasm) pantoprazole 40 mg tablet,delayed release (DR/EC) 40 mg PO DAILY Jardiance 10 mg tablet 10 mg PO DAILY furosemide 20 mg tablet 20 mg PO DAILY cyclobenzaprine 10 mg tablet 10 mg PO DAILY pramipexole 1 mg tablet 1 mg PO QPM atorvastatin 20 mg tablet 20 mg PO DAILY buspirone 10 mg tablet 10 mg PO TID montelukast 10 mg tablet 10 mg PO ONCE PM ondansetron 8 mg tablet,disintegrating 8 mg PO Q8H PRN (Reason: nausea/vomiting) pregabalin 100 mg capsule 100 mg PO TID hydrocodone-acetaminophen 10-325 mg tablet 1 tab PO TID cholecalciferol (vitamin D3) [Vitamin D3] 25 mcg (1,000 unit) Capsule 1,000 mcg PO DAILY insulin glargine [Lantus Solostar U-100 Insulin] 100 unit/mL (3 mL) insulin pen 24 unit SUBCUT BID Patient Comments: [NO ORIGINAL SIG] ipratropium-albuterol 0.5 mg-3 mg(2.5 mg base)/3 mL solution for nebulization 3 ml inhalation DAILY PRN (Reason: SOB) albuterol sulfate 2.5 mg /3 mL (0.083 %) solution for nebulization 2.5 mg inhalation Q4H PRN (Reason: wheezing) potassium chloride 10 mEq tablet extended release 10 meq PO BID lidocaine 5 % adhesive patch,medicated 1 patch topical DAILY budesonide 0.5 mg/2 mL suspension for nebulization 0.5 mg inhalation DAILY albuterol sulfate 90 mcg/actuation HFA aerosol inhaler 2 puff inhalation Q6H PRN (Reason: wheezing) Stiolto Respimat 2.5-2.5 mcg/actuation mist 2 puff inhalation DAILY azithromycin 250 mg tablet 250 mg PO DAILY Qty: 3 0RF Referrals: Miscellaneous,Doctor, MD [Primary Care Provider] - Stand Alone Forms: Patient Portal/API
--- NOTE | 2024-03-06 11:42 | DI.RAD.S_ITS ---
PROCEDURE: XR CHEST 1V INDICATIONS: crackles upon auscultation TECHNIQUE: One view of the chest was acquired. COMPARISON: [facility], CR, XR CHEST 1V, 02/02/2024, 11:01. FINDINGS: Surgical changes and devices: None. Lungs and pleura: Mild increased vascularity. There is coarsening at the right base with trace costophrenic angle blunting. Mediastinum: Mediastinal contours appear normal. Heart size is enlarged. Bones and chest wall: No suspicious bony lesions. Overlying soft tissues appear unremarkable. IMPRESSION: Coarsening of the right base. This could represent dependent change, atelectasis versus developing pneumonia. Trace right costophrenic angle blunting suggestive of minimal effusion. Dictated by: Gini Manzano M.D. on 03/06/2024 at 12:24 Approved by: Gini Manzano M.D. on 03/06/2024 at 12:25
--- NOTE | 2024-03-06 13:06 | DI.CT.S_ITS ---
PROCEDURE: CT ABDOMEN PELVIS WO CON INDICATIONS: abd pain, last BM 7d ago TECHNIQUE: Axial sections were acquired from the lung bases to the pubic symphysis. Coronal and sagittal reformats were performed. For radiation dose reduction, the following was used: automated exposure control, adjustment of mA and/or kV according to patient size. COMPARISON: [facility], CT, CT CHEST ABDOMEN PELVIS WITHOUT CONTRAST, 09/02/2023, 18:26. FINDINGS: Image quality: Diagnostic. Lower Chest: Calcifications. URINARY: Right Kidney: No stones or hydronephrosis. . Right Ureter: No hydroureter. Left Kidney: No obstruction. Inferior pole calcification is present measuring 1.3 by 0.9 cm. Hounsfield units measuring 939. No obstruction. Left Ureter: No hydroureter. Bladder: Normal wall thickness. No stones. ABDOMEN: Liver: No contour-deforming solid mass. Gallbladder: Removed Biliary ducts: No biliary dilation. Pancreas: No ductal dilation. Spleen: Size is within normal limits. Adrenal Glands: No adrenal nodules. Stomach and Bowel: Normal colonic caliber, without significant wall thickening. Moderate colonic stool particularly within rectum. No gross obstruction. Peritoneum: No abnormal intraperitoneal fluid. No free air. Ventral Wall: No hernia. Abdominal Nodes: No enlarged retroperitoneal or mesenteric lymph nodes. Vessels: Aorta and inferior vena cava are normal in size. PELVIS: Pelvic Organs: Unremarkable. Pelvic Nodes: Unremarkable. Miscellaneous: No inguinal hernias are seen. Bones: Unremarkable. IMPRESSION: Non-obstructing left renal calculus. Moderate colonic stool particularly within the rectum without gross obstruction. Dictated by: Gini Manzano M.D. on 03/06/2024 at 14:13 Approved by: Gini Manzano M.D. on 03/06/2024 at 14:15
[2024-03-06] MEDS: MORPHINE 4 MG/ML INJ IV (13:18)
[2024-03-06 13:21] LABS: Add Manual Diff / Slide Review NO; Basophils Absolute Auto 100 /uL (0-100); Basophils Percent Auto 0.7 % (0-2); Eosinophils Absolute Auto 200 /uL (0-450); Hematocrit 40.1 % (36-46); Hemoglobin 13.3 g/dL (12.0-16.0); Lymphocytes Absolute Auto 2100 /uL (1100-4500); Lymphocytes Percent Auto 21.5 % (25-40); Mean Corpuscular HGB Conc 33.1 % (30-36); Mean Corpuscular Hemoglobin 25.7 PG (26-34); Mean Corpuscular Volume 77.6 fL (80-100); Monocytes Absolute Auto 700 /uL (0-900); Monocytes Percent Auto 6.7 % (3-14); Neutrophils Absolute Auto 6900 /uL (1500-7000); Neutrophils Percent Auto 69.1 % (50-75); Platelet Count 270 X10^3/uL (150-400); Red Blood Cell Count 5.17 X10^6/uL (4.0-5.2); Red Cell Distribution Width 17.8 % (11.6-14.8); White Blood Cell Count 9.9 X10^3/uL (4.5-11.0)
[2024-03-06 13:34] LABS: Alanine Aminotransferase 12 IU/L (<35); Albumin 3.6 g/dL (3.5-5.0); Albumin Globulin Ratio 1.4 (1.0-2.8); Alkaline Phosphatase 83 U/L (38-126); Aspartate Aminotransferase 29 IU/L (14-36); BUN Creatinine Ratio 25.3 (6-22); Bilirubin Total 0.7 mg/dL (0.2-1.3); Blood Urea Nitrogen 20 mg/dL (7-17); Calcium 8.7 mg/dL (8.4-10.2); Carbon Dioxide 26 mmol/L (22-32); Chloride 109 mmol/L (98-107); Estimated Glomerular Filt Rate > 60 mL/min (>60); Globulin 2.5 g/dL (1.7-4.1); Glucose 72 mg/dL (80-110); HEMOLYSIS 17 (0-50); Lipase 39 U/L (23-300); Potassium 4.4 mmol/L (3.4-5.1); Sodium 140 mmol/L (137-145); Total Protein 6.1 g/dL (6.3-8.2)
[2024-03-06] MEDS: IPRATROPIUM 0.5 MG/2.5 ML NEB 1.5 MG INH (14:00)
--- NOTE | 2024-03-06 16:28 | PC.NURSE ---
Enema successful. Linen change and changed chux pads under pt.
[2024-03-06 16:46] LABS: Appearance Urine UA SL CLOUDY; Bilirubin Urine UA NEGATIVE (NEGATIVE); Color Urine UA YELLOW; Glucose Urine UA 3+ g/dL (Negative); Ketones Urine UA NEGATIVE (NEGATIVE); Leukocyte Esterase Urine UA NEGATIVE (NEGATIVE); Nitrite Urine UA NEGATIVE (Negative); Occult Blood Urine UA NEGATIVE (Negative); Protein Urine UA NEGATIVE (Negative); Urobilinogen Urine UA 0.2 E.U./dL (0.2)
[2024-03-06 16:49] LABS: pH Urine UA 5.5 (4.5-8.0)
[2024-03-06 16:55] LABS: Bacteria Urine Occasional (0-1); Culture Indicated Urine Cult Not Indicated; RBC Urine 0-1/HPF (0-5/HPF); Squamous Epithelial Cell Urine 0-1 /HPF (0-5/HPF); Urine Volume 10mL (spun); WBC Urine 0-1/HPF (0-5/HPF)
--- NOTE | 2024-03-06 17:28 | CM.SWNOTE ---
ED TECHNICAL SERVICE REPRESENTATIVE Note: Pt is a 79yo female, resident of [place], presents to the ED for abdominal pain and constipation. Pt is currently living with her daughter in [place]. TECHNICAL SERVICE REPRESENTATIVE was consulted due to pt reporting housing insecurity during triage. TECHNICAL SERVICE REPRESENTATIVE entered room, introduced self and role. Pt confirmed that she has been staying on her daughter, Collin, couch. Pt explains that she has been assigned a information systems security manager with the [facility] in an attempt to have her find housing for herself. Pt confirms that she has been working with a information systems security manager at the [facility] to possibly be part of their housing program. Pt denied any social needs at this time and declined any resources for basic needs as she has monthly social security resources. TECHNICAL SERVICE REPRESENTATIVE called [facility] for BLS transport to pt's daughter's house which includes a flight of stairs. Plan: Discharge home with [facility] to transport. JW Skelton
== END 2024-03-06 19:07 | disposition home or self-care (01) ==
PROVIDERS: Emergency Provider Emergency Medicine
DX: K59.00 Constipation, unspecified (principal)
CPT/HCPCS: 51798; 71045; 74176; 80053; 81001; 83690; 85025; 94640; 96374; 99284; 99285; J2270

== ENCOUNTER 2024-07-20 10:51 | Emergency (ER) | payer OTHER, MEDICAID, SELFPAY ==
[2024-02-02 16:42] VITALS: BMI 38.2
[2024-07-20 11:00] VITALS: BP 134/68; PULSE 93; RESP 24; TEMP 36.7; O2SAT 94; BMI 34.0
--- NOTE | 2024-07-20 11:34 | ED_ITS ---
HPI - URI/Sore Throat <Chris Rodriguez PA-C - Last Filed: 07/20/24 13:06> General Chief Complaint: Upper Respiratory Symptoms Stated Complaint: cough, back pain, poss pneumonia Time Seen by Provider: 07/20/24 11:33 Source: patient Mode of arrival: Wheelchair History of Present Illness HPI Narrative: This is a 79-year-old female presents emergency department due to a productive cough for the last month as well as a mild aching right-sided back pain for the last couple of days. She states that she has been having a productive cough for the last month with a green sputum. Denies any fevers, abdominal pain, chest p ain, shortness of breath, vomiting. Does report some mild nausea. History of COPD as well as CHF. She was on 3 L of home oxygen at night. Has been taking her nebulizer without significant relief. Has been taking her diuretics as prescribed. Related Data Home Medications Medication Instructions Recorded Confirmed atorvastatin 20 mg tablet 20 mg PO DAILY 02/02/24 02/02/24 buspirone 10 mg tablet 10 mg PO TID 02/02/24 02/03/24 cholecalciferol (vitamin D3) 25 1,000 mcg PO DAILY 02/02/24 02/02/24 mcg (1,000 unit) capsule (Vitamin D3) cyclobenzaprine 10 mg tablet 10 mg PO DAILY 02/02/24 02/03/24 diazepam 5 mg tablet 5 mg PO PRN PRN Muscle Spasm 02/02/24 02/02/24 empagliflozin 10 mg tablet 10 mg PO DAILY 02/02/24 02/02/24 (Jardiance) furosemide 20 mg tablet 20 mg PO DAILY 02/02/24 02/02/24 hydrocodone 10 mg-acetaminophen 1 tab PO TID 02/02/24 02/03/24 325 mg tablet insulin glargine 100 unit/mL (3 24 unit SUBCUT BID 02/02/24 02/03/24 mL) subcutaneous pen (Lantus Solostar U-100 Insulin) lisinopril 20 mg tablet 20 mg PO DAILY 02/02/24 02/02/24 montelukast 10 mg tablet 10 mg PO ONCE PM 02/02/24 02/02/24 ondansetron 8 mg disintegrating 8 mg PO Q8H PRN nausea/vomiting 02/02/24 02/02/24 tablet pantoprazole 40 mg tablet,delayed 40 mg PO DAILY 02/02/24 02/02/24 release pramipexole 1 mg tablet 1 mg PO QPM 02/02/24 02/02/24 pregabalin 100 mg capsule 100 mg PO TID 02/02/24 02/02/24 rivaroxaban 15 mg tablet (Xarelto) 15 mg PO QPM 02/02/24 02/02/24 albuterol sulfate 2.5 mg/3 mL 2.5 mg inhalation Q4H PRN wheezing 02/03/24 02/03/24 (0.083 %) solution for nebulization albuterol sulfate 90 mcg/actuation 2 puff inhalation Q6H PRN wheezing 02/03/24 02/03/24 aerosol inhaler budesonide 0.5 mg/2 mL suspension 0.5 mg inhalation DAILY 02/03/24 02/03/24 for nebulization ipratropium 0.5 mg-albuterol 3 mg 3 ml inhalation DAILY PRN SOB 02/03/24 02/03/24 (2.5 mg base)/3 mL nebulization soln lidocaine 5 % topical patch 1 patch topical DAILY 02/03/24 02/03/24 potassium chloride 10 mEq 10 meq PO BID 02/03/24 02/03/24 tablet,extended release tiotropium 2.5 mcg-olodaterol 2.5 2 puff inhalation DAILY 02/03/24 02/03/24 mcg/actuation mist for inhalation (Stiolto Respimat) Previous Rx's Medication Instructions Recorded azithromycin 250 mg tablet 250 mg PO DAILY #3 tabs 02/04/24 Allergies Allergy/AdvReac Type Severity Reaction Status Date / Time amlodipine Allergy Hypotension Verified 07/20/24 11:00 marijuana (cannabis) Allergy Verified 03/06/24 11:29 metoprolol Allergy Hypotension Verified 07/20/24 11:00 shellfish derived Allergy Verified 03/06/24 11:29 tramadol Allergy Verified 03/06/24 11:29 Review of Systems <Chris Rodriguez PA-C - Last Filed: 07/20/24 13:06> Review of Systems Narrative: GENERAL: Denies chills, fatigue, malaise, fever, sweats. HEENT: Denies sinus pain, ear pain, sore throat, difficulty swallowing, dizziness. RESPIRATORY: Reports cough, back pain Denies dyspnea, , wheezing, hemoptysis, sputum. CARDIOVASCULAR: Denies chest pain, palpitations, orthopnea, edema, GASTROINTESTINAL: Reports nausea Denies , vomiting, abdominal pain, diarrhea, constipation, melena. : Denies dysuria, frequency, incontinence, hematuria, urinary retention. MUSCULOSKELETAL: denies weakness, joint pain, or bony pain SKIN: Denies rash, skin lesions, or other NEUROLOGIC: Denies weakness, headache, numbness, change in speech, confusion, seizures, incoordination. PSYCHIATRIC: No concerning psychosocial issues. 12 point review of systems is negative except for those stated above Patient History <Chris Rodriguez PA-C - Last Filed: 07/20/24 13:06> Social History household members: children Smoking Status: Current every day smoker alcohol intake: never Smoking Status: Current every day smoker tobacco type: vaping Substance Use Type: marijuana Exam <Chris Rodriguez PA-C - Last Filed: 07/20/24 13:06> Narrative Exam Narrative: GENERAL: Well-developed patient, in mild distress. HEAD: Atraumatic. Normocephalic. EYES: Pupils equal round and reactive. Extraocular motions intact. No scleral icterus. No injection or drainage. ENT: Nose without bleeding, purulent drainage. Throat without erythema, tonsillar hypertrophy or exudate. Airway patent. NECK: Trachea midline. Non tender EXTREMITIES: No edema or joint tenderness. NEURO: AOx3. SKIN: No rash or erythema of visible areas CARDIOVASCULAR: Regular rate and rhythm without murmurs, gallops, or rubs. RESPIRATORY: Expiratory wheezes on the right side, otherwise Clear to auscultation. No rales, or rhonchi. GASTROINTESTINAL: Abdomen soft, non-tender, nondistended. BACK: Nontender without deformity or crepitance. No flank tenderness. Initial Vital Signs Initial Vital Signs: Vital Signs Temperature 98.1 F 07/20/24 11:00 Pulse Rate 93 H 07/20/24 11:00 Respiratory Rate 24 07/20/24 11:00 Blood Pressure 134/68 07/20/24 11:00 Pulse Oximetry 94 07/20/24 11:00 Oxygen Delivery Method Room Air 07/20/24 11:00 <Che Munoz MD - Last Filed: 07/20/24 18:10> Initial Vital Signs Initial Vital Signs: Vital Signs Temperature 98.1 F 07/20/24 11:00 Pulse Rate 93 H 07/20/24 11:00 Respiratory Rate 24 07/20/24 11:00 Blood Pressure 134/68 07/20/24 11:00 Pulse Oximetry 94 07/20/24 11:00 Oxygen Delivery Method Room Air 07/20/24 11:00 Course <Chris Rodriguez PA-C - Last Filed: 07/20/24 13:06> Orders Ordered: ED Orders 07/20/24 11:44 XR chest 2V Stat 07/20/24 11:46 Respiratory Panel (Film Array) Stat 07/20/24 11:50 Consult to DIRECTOR ORGANIZATIONAL - Senior Qa Analyst Stat Vital Signs Vital signs: Vital Signs - 8 hr 07/20/24 11:00 07/20/24 13:11 Temperature 98.1 F Pulse Rate 93 H 72 Respiratory Rate 24 18 Blood Pressure 134/68 112/58 L Pulse Oximetry 94 94 Oxygen Delivery Method Room Air Room Air <Che Munoz MD - Last Filed: 07/20/24 18:10> Orders Ordered: ED Orders 07/20/24 11:44 XR chest 2V Stat 07/20/24 11:46 Respiratory Panel (Film Array) Stat 07/20/24 11:50 Consult to [facility] [place] - Senior Qa Analyst Stat Vital Signs Vital signs: Vital Signs - 8 hr 07/20/24 11:00 07/20/24 13:11 Temperature 98.1 F Pulse Rate 93 H 72 Respiratory Rate 24 18 Blood Pressure 134/68 112/58 L Pulse Oximetry 94 94 Oxygen Delivery Method Room Air Room Air MDM - URI/Sore Throat <Chris Rodriguez PA-C - Last Filed: 07/20/24 13:06> Lab Data Labs: Lab Results 07/20/24 Range/Units 11:46 Chlamy pneumoniae PCR Not detected (Not Detect) Adenovirus (PCR) Not detected (Not Detect) B. pertussis DNA (PCR) Not detected (Not Detect) B.parapertussis DNA PCR Not detected (Not Detecte) Coronavirus OC43 (PCR) Not detected (Not Detect) Coronavirus HKU1 (PCR) Not detected (Not Detect) Coronavirus 229E (PCR) Not detected (Not Detect) SARS-CoV-2 (PCR) Not detected (Not Detecte) Coronavirus NL63 (PCR) Not detected (Not Detect) Human Metapneumovir PCR Not detected (Not Detect) Influenza Type A (PCR) Not detected (Not Detect) Influenza Type B (PCR) Not detected (Not Detect) M. pneumoniae (PCR) Not detected (Not Detect) Parainfluenza 1 (PCR) Not detected (Not Detect) Parainfluenza 2 (PCR) Not detected (Not Detect) Parainfluenza 3 (PCR) Not detected (Not Detect) Parainfluenza 4 (PCR) Not detected (Not Detect) RSV (PCR) Not detected (Not Detect) Entero/Rhino (PCR) Not detected (Not Detect) Imaging Data Chest x-ray: Radiologist's Impression: [address] [address] XRay Report Signed Patient: Lakshmi Aquino MR#: [id number] : 1945 Acct:[id number] Age/Sex: 79 / F Date of Service: 07/20/24 Loc: ED Accession Number: [id number] Procedure: XR chest 2V Ordering Provider: Chris Rodriguez PA-C PROCEDURE: XR CHEST 2V INDICATIONS: hx pneumonia, green sputum and cough TECHNIQUE: 2 views of the chest were acquired. COMPARISON: [facility], , XR CHEST 1V, 03/06/2024, 11:43. [facility], , XR CHEST 1V, 02/02/2024, 11:01. FINDINGS: Surgical changes and devices: None. Lungs and pleura: Lungs are mildly edematous. No pleural effusions or pn eumothorax. Mediastinum: Mediastinal contours are normal. Heart size is normal. Bones and chest wall: No suspicious bony abnormalities. Soft tissues appear unremarkable. IMPRESSION: Mild alveolar edema pattern, chronicity uncertain. The heart size is not enlarged and no pleural effusions are seen. Dictated by: Arnoldo Hogue M.D. on 07/20/2024 at 12:31 Approved by: Arnoldo Hogue M.D. on 07/20/2024 at 12:33 MDM Narrative Medical decision making narrative: ED course: This is a 79-year-old female presenting to the emergency department due to reported month productive cough with some reported right-sided discomfort to the right rib area. Chest x-ray showed mild alveolar edema suspected to be chronic as patient was history of CHF and COPD. Respiratory panel negative. Patient was not reporting any sinus pain or pressure and low concern for any kind of bacterial sinusitis. This is maybe a mild COPD exacerbation which I recommended she take [id number] cough and cold medication and to follow up with the primary care provider. Patient's vitals within normal limits and exam otherwise reassuring. CC: Cough Complicating co-morbidities: COPD, CHF, as below Data collected from: Previous notes Medical records reviewed: Patient was last seen 4 months ago due to abdominal pain and constipation. History of COPD on chronic home oxygen at 2 liters/minute. Patient was constipation improved with the enemas. Discharged with the laxatives. X-ray of the chest was taken and it was time which showed ?Coarsening of the right base. This could represent dependent change, atelectasis versus developing pneumonia.Trace right costophrenic angle blunting suggestive of minimal effusion Patient was also seen 4 months ago due to dyspnea and altered mental status. Does have a history of CHF and COPD. Also has a history of diabetes, atrial fibrillation on Xarelto. Chest x-ray showed cardiomegaly with prominent interstitial markings, concerning for pulmonary edema. Patient was admitted to the hospital due to community-acquired pneumonia. On review of hospitalization discharge summary. Patient has history of chronic respiratory failure. Patient was admitted for IV antibiotics and IV diuresis. Eventually discharged. Differential considered, but not limited to: COPD exacerbation, bacterial sinusitis, viral sinusitis, acute bronchitis, pneumonia Exam documented above, pertinent findings include: There were some mild expiratory wheezing on the right although patient reports no shortness a breath. Recommended she continue with her prescribed COPD medication. Lab Test results independently reviewed as above. Pertinent findings: Respirat ory panel negative Imaging studies independently reviewed: As mentioned above in ED course Scores Used: None MIPS Elements: None Consultations: None Treatments: None Re-evaluations: None Discussion: Discussed plan with the patient was comfortable with the plan Diagnosis: Cough Disposition: see below, along with detailed discharge instructions that have been reviewed with patient as well as indications for ED re-evaluation and additional outpatient follow up <Che Munoz MD - Last Filed: 07/20/24 18:10> Lab Data Labs: Lab Results 07/20/24 Range/Units 11:46 Chlamy pneumoniae PCR Not detected (Not Detect) Adenovirus (PCR) Not detected (Not Detect) B. pertussis DNA (PCR) Not detected (Not Detect) B.parapertussis DNA PCR Not detected (Not Detecte) Coronavirus OC43 (PCR) Not detected (Not Detect) Coronavirus HKU1 (PCR) Not detected (Not Detect) Coronavirus 229E (PCR) Not detected (Not Detect) SARS-CoV-2 (PCR) Not detected (Not Detecte) Coronavirus NL63 (PCR) Not detected (Not Detect) Human Metapneumovir PCR Not detected (Not Detect) Influenza Type A (PCR) Not detected (Not Detect) Influenza Type B (PCR) Not detected (Not Detect) M. pneumoniae (PCR) Not detected (Not Detect) Parainfluenza 1 (PCR) Not detected (Not Detect) Parainfluenza 2 (PCR) Not detected (Not Detect) Parainfluenza 3 (PCR) Not detected (Not Detect) Parainfluenza 4 (PCR) Not detected (Not Detect) RSV (PCR) Not detected (Not Detect) Entero/Rhino (PCR) Not detected (Not Detect) Discharge Plan Departure Patient Disposition: Home Clinical Impression: Cough Activity Restrictions/Additional Instructions: Thank you for coming to the [facility] Emergency Department today. As we discussed your chest x-ray showed no evidence of any kind of pneumonia. Your respiratory panel was also negative for COVID, flu, and a variety of other viral illnesses. This productive cough he was experiencing maybe managed by [id number] cough and cold medications. Please follow up with the primary care provider for long-term management of your COPD and CHF. Please return to the emergency department if you develop any chest pain, significant shortness of breath, or any other concerning signs or symptoms. I hope you feel better soon. Please follow up with your primary care provider within a week if your symptoms continue. If you do not have a primary care provider please contact the [facility] Resource line at [phone]. They will ask some questions about your medical history and help you get set up with a provider in the community. Prescriptions: No Action lisinopril 20 mg tablet 20 mg PO DAILY Xarelto 15 mg tablet 15 mg PO QPM diazepam 5 mg tablet 5 mg PO PRN PRN (Reason: Muscle Spasm) pantoprazole 40 mg tablet,delayed release (DR/EC) 40 mg PO DAILY Jardiance 10 mg tablet 10 mg PO DAILY furosemide 20 mg tablet 20 mg PO DAILY cyclobenzaprine 10 mg tablet 10 mg PO DAILY pramipexole 1 mg tablet 1 mg PO QPM atorvastatin 20 mg tablet 20 mg PO DAILY buspirone 10 mg tablet 10 mg PO TID montelukast 10 mg tablet 10 mg PO ONCE PM ondansetron 8 mg tablet,disintegrating 8 mg PO Q8H PRN (Reason: nausea/vomiting) pregabalin 100 mg capsule 100 mg PO TID hydrocodone-acetaminophen 10-325 mg tablet 1 tab PO TID cholecalciferol (vitamin D3) [Vitamin D3] 25 mcg (1,000 unit) Capsule 1,000 mcg PO DAILY insulin glargine [Lantus Solostar U-100 Insulin] 100 unit/mL (3 mL) insulin pen 24 unit SUBCUT BID Patient Comments: [NO ORIGINAL SIG] ipratropium-albuterol 0.5 mg-3 mg(2.5 mg base)/3 mL solution for nebulization 3 ml inhalation DAILY PRN (Reason: SOB) albuterol sulfate 2.5 mg /3 mL (0.083 %) solution for nebulization 2.5 mg inhalation Q4H PRN (Reason: wheezing) potassium chloride 10 mEq tablet extended release 10 meq PO BID lidocaine 5 % adhesive patch,medicated 1 patch topical DAILY budesonide 0.5 mg/2 mL suspension for nebulization 0.5 mg inhalation DAILY albuterol sulfate 90 mcg/actuation HFA aerosol inhaler 2 puff inhalation Q6H PRN (Reason: wheezing) Stiolto Respimat 2.5-2.5 mcg/actuation mist 2 puff inhalation DAILY azithromycin 250 mg tablet 250 mg PO DAILY Qty: 3 0RF Referrals: Miscellaneous,DoctorMD [Non-Staff] - Stand Alone Forms: Patient Portal/API ED Sign-out <Che Munoz MD - Last Filed: 07/20/24 18:10> Cosign ED Attending Cosignature Attestation: I was immediately available in the department for consultation throughout this patient's visit. Che Munoz MD
--- NOTE | 2024-07-20 11:44 | DI.RAD.S_ITS ---
PROCEDURE: XR CHEST 2V INDICATIONS: hx pneumonia, green sputum and cough TECHNIQUE: 2 views of the chest were acquired. COMPARISON: [facility], CR, XR CHEST 1V, 03/06/2024, 11:43. [facility], CR, XR CHEST 1V, 02/02/2024, 11:01. FINDINGS: Surgical changes and devices: None. Lungs and pleura: Lungs are mildly edematous. No pleural effusions or pneumothorax. Mediastinum: Mediastinal contours are normal. Heart size is normal. Bones and chest wall: No suspicious bony abnormalities. Soft tissues appear unremarkable. IMPRESSION: Mild alveolar edema pattern, chronicity uncertain. The heart size is not enlarged and no pleural effusions are seen. Dictated by: Arnoldo Hogue M.D. on 07/20/2024 at 12:31 Approved by: Arnoldo Hogue M.D. on 07/20/2024 at 12:33
[2024-07-20 12:41] LABS: Adenovirus Not Detected (Not Detect); B. parapertussis Not Detected (Not Detecte); Bordetella pertussis Not Detected (Not Detect); Chlamydophila pneumoniae Not Detected (Not Detect); Coronavirus 229E Not Detected (Not Detect); Coronavirus HKU1 Not Detected (Not Detect); Coronavirus NL 63 Not Detected (Not Detect); Coronavirus OC43 Not Detected (Not Detect); Human Metapneumovirus Not Detected (Not Detect); Human Rhinovirus/Enterovirus Not Detected (Not Detect); Influenza A Not Detected (Not Detect); Influenza B Not Detected (Not Detect); Mycoplasma pneumoniae Not Detected (Not Detect); Parainfluenza Virus 1 Not Detected (Not Detect); Parainfluenza Virus 2 Not Detected (Not Detect); Parainfluenza Virus 3 Not Detected (Not Detect); Parainfluenza Virus 4 Not Detected (Not Detect); Respiratory Syncytial Virus Not Detected (Not Detect); SARS- CoV-2 Not Detected (Not Detecte)
[2024-07-20 13:11] VITALS: BP 112/58; PULSE 72; RESP 18; O2SAT 94
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
== END 2024-07-20 13:11 | disposition home or self-care (01) ==
PROVIDERS: Emergency Provider Physician Assistant Medical; PCP Family Medicine
DX: R05.9 Cough, unspecified (principal); M54.9 Dorsalgia, unspecified; Z79.899 Other long term (current) drug therapy; Z11.52 Encounter for screening for COVID-19
CPT/HCPCS: 71046; 87633; 99283

== ENCOUNTER 2024-07-24 07:46 | Inpatient (IN) | payer OTHER, MEDICAID, SELFPAY ==
[2024-02-02 16:42] VITALS: BMI 38.2
[2024-07-24] VITALS (49 sets, daily range): BP systolic 83–174; BP diastolic 44–71; PULSE 82–130; RESP 18–50; TEMP 36.2–37.7; O2SAT 87–97; BMI 28.1; BMI 33.3
[2024-07-24] MEDS: ALBUTEROL/IPRATROPIUM 3 ML AMPUL INH (07:57)
--- NOTE | 2024-07-24 07:58 | EKG_ITS ---
[address] [address] Test Date: 2024-07-24 Pat Name: Lakshmi Aquino Department: [facility] Room: Gender: Female Communications Editor: FLAVIO : 1945 Requested By: Order Number: [id number] Reading MD: Andrew Sanford Measurements Intervals [place] Rate: 118 P: VA: QRS: -67 QRSD: 128 T: 54 QT: 342 QTc: 479 Interpretive Statements Undetermined rhythm Right bundle branch block Left anterior fascicular block Bifascicular block Possible Lateral infarct , age undetermined Electronically Signed On 07-24-2024 15:40:37 PDT by Andrew Sanford
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
[2024-07-24 08:08] LABS: Prothrombin Time 23.2 SECONDS (9.4-12.5)
[2024-07-24 08:12] LABS: Alanine Aminotransferase 20 IU/L (<35); Albumin 4.2 g/dL (3.5-5.0); Albumin Globulin Ratio 1.2 (1.0-2.8); Alkaline Phosphatase 131 U/L (38-126); Aspartate Aminotransferase 27 IU/L (14-36); BUN Creatinine Ratio 20.9 (6-22); Bilirubin Total 1.3 mg/dL (0.2-1.3); Blood Urea Nitrogen 24 mg/dL (7-17); Calcium 9.2 mg/dL (8.4-10.2); Carbon Dioxide 25 mmol/L (22-32); Chloride 104 mmol/L (98-107); Estimated Glomerular Filt Rate 49 mL/min (>60); Globulin 3.4 g/dL (1.7-4.1); Glucose 159 mg/dL (80-110); HEMOLYSIS < 15 (0-50); Lactate (Lactic Acid) 1.9 mmol/L (0.7-2.1); Potassium 4.6 mmol/L (3.4-5.1); Sodium 140 mmol/L (137-145); Total Protein 7.6 g/dL (6.3-8.2)
[2024-07-24 08:13] LABS: Add Manual Diff / Slide Review NO; Basophils Absolute Auto 100 /uL (0-100); Basophils Percent Auto 0.4 % (0-2); Eosinophils Absolute Auto 200 /uL (0-450); Eosinophils Percent Auto 1.1 % (2-4); Hematocrit 44.6 % (36-46); Hemoglobin 14.4 g/dL (12.0-16.0); Lymphocytes Absolute Auto 3000 /uL (1100-4500); Lymphocytes Percent Auto 15.8 % (25-40); Mean Corpuscular HGB Conc 32.4 % (30-36); Mean Corpuscular Volume 77.3 fL (80-100); Monocytes Absolute Auto 1900 /uL (0-900); Monocytes Percent Auto 10.1 % (3-14); Neutrophils Absolute Auto 14000 /uL (1500-7000); Neutrophils Percent Auto 72.6 % (50-75); Platelet Count 429 X10^3/uL (150-400); Red Blood Cell Count 5.77 X10^6/uL (4.0-5.2); Red Cell Distribution Width 19.7 % (11.6-14.8); White Blood Cell Count 19.2 X10^3/uL (4.5-11.0)
[2024-07-24] MEDS: AZITHROMYCIN 250 MG TABLET 500 MG PO (08:18)
[2024-07-24] MEDS: methylPREDNISolone 125 MG/2 ML VIAL IV (08:18)
[2024-07-24] MEDS: cefTRIAXone 1,000 MG in SODIUM CHLORIDE 0.9% 100 ML 200 MG IV (08:19)
[2024-07-24 08:24] LABS: NT-proBNP (BNP-Adult 18+) 1200 pg/mL (<450); Troponin I 0.012 ng/mL (0.01-0.034)
[2024-07-24 08:51] LABS: Adenovirus Not Detected (Not Detect); B. parapertussis Not Detected (Not Detecte); Bordetella pertussis Not Detected (Not Detect); Chlamydophila pneumoniae Not Detected (Not Detect); Coronavirus 229E Not Detected (Not Detect); Coronavirus HKU1 Not Detected (Not Detect); Coronavirus NL 63 Not Detected (Not Detect); Coronavirus OC43 Not Detected (Not Detect); Human Metapneumovirus Not Detected (Not Detect); Human Rhinovirus/Enterovirus Not Detected (Not Detect); Influenza A Not Detected (Not Detect); Influenza B Not Detected (Not Detect); Mycoplasma pneumoniae Not Detected (Not Detect); Parainfluenza Virus 1 Not Detected (Not Detect); Parainfluenza Virus 2 Not Detected (Not Detect); Parainfluenza Virus 3 Not Detected (Not Detect); Parainfluenza Virus 4 Not Detected (Not Detect); Respiratory Syncytial Virus Not Detected (Not Detect)
--- NOTE | 2024-07-24 09:02 | PC.NURSE ---
Spoke with Dr. Stapleton about o2 parameters. Goal for pt 90-92 02 sat. Patient currently on 5lmp with 0ximask. When patient sleeping, drooping to 88%. Provided teaching on deep breathing, repositioned patient, and RT to bedside for insentive spiropmetry teaching.
[2024-07-24 09:03] LABS: SARS- CoV-2 Detected (Not Detecte)
[2024-07-24] MEDS: DEXAMETHASONE 10 MG/ML VIAL 6 MG IV (09:53)
[2024-07-24] MEDS: REMDESIVIR 200 MG in SODIUM CHLORIDE 0.9% 250 ML 250 MG IV (09:53)
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
--- NOTE | 2024-07-24 10:58 | PC.NURSE ---
Pt c/o being hot. Not tolerating oximask. Trial with 5L NC. Temp 99
[2024-07-24] MEDS: SODIUM CHLORIDE 0.9% 500 ML 1000 ML IV (11:46)
[2024-07-24] MEDS: INSULIN LISPRO 100 UNIT/ML 3ML VIAL SUBCUT ×2 (17:27→21:00)
[2024-07-24] MEDS: ALBUTEROL 2.5 MG/3 ML NEB (ADULT) INH (19:29)
[2024-07-24] MEDS: INSULIN GLARGINE 100 UNIT/ML 3ML PEN 15 UNIT SUBCUT (21:01)
[2024-07-24] MEDS: BENZONATATE 100 MG CAPSULE PO (21:40)
[2024-07-24] MEDS: RIVAROXABAN 10 MG TABLET 15 MG PO (22:49)
[2024-07-24] MEDS: DOCUSATE 100 MG CAPSULE PO (22:49)
[2024-07-24] MEDS: PREGABALIN 50 MG CAPSULE 100 MG PO (22:50)
[2024-07-24] MEDS: MONTELUKAST 10 MG TABLET PO (22:50)
[2024-07-25] VITALS (11 sets, daily range): BP systolic 138–143; BP diastolic 56–86; PULSE 74–94; RESP 12–22; TEMP 36.4–37; O2SAT 94–98
[2024-07-25] MEDS: ALBUTEROL 2.5 MG/3 ML NEB (ADULT) INH (00:28)
[2024-07-25] MEDS: PANTOPRAZOLE DR 40 MG TABLET PO (05:08)
[2024-07-25 05:36] LABS: Add Manual Diff / Slide Review NO; Basophils Absolute Auto 0 /uL (0-100); Basophils Percent Auto 0.2 % (0-2); Eosinophils Absolute Auto 0 /uL (0-450); Hematocrit 36.9 % (36-46); Lymphocytes Absolute Auto 1200 /uL (1100-4500); Lymphocytes Percent Auto 9.6 % (25-40); Mean Corpuscular HGB Conc 32.5 % (30-36); Mean Corpuscular Hemoglobin 25.1 PG (26-34); Mean Corpuscular Volume 77.2 fL (80-100); Monocytes Absolute Auto 800 /uL (0-900); Neutrophils Absolute Auto 10800 /uL (1500-7000); Neutrophils Percent Auto 84.2 % (50-75); Platelet Count 344 X10^3/uL (150-400); Red Blood Cell Count 4.78 X10^6/uL (4.0-5.2); Red Cell Distribution Width 20.1 % (11.6-14.8); White Blood Cell Count 12.8 X10^3/uL (4.5-11.0)
[2024-07-25 06:10] LABS: BUN Creatinine Ratio 30.2 (6-22); Blood Urea Nitrogen 29 mg/dL (7-17); Calcium 8.7 mg/dL (8.4-10.2); Carbon Dioxide 20 mmol/L (22-32); Chloride 104 mmol/L (98-107); Estimated Glomerular Filt Rate > 60 mL/min (>60); Glucose 240 mg/dL (80-110); HEMOLYSIS < 15 (0-50); Potassium 4.2 mmol/L (3.4-5.1); Sodium 134 mmol/L (137-145)
[2024-07-25 06:16] LABS: Anisocytosis 1+; Macrocytosis 1+; Platelet Estimate Adequate on smear
--- NOTE | 2024-07-25 07:59 | PM.PN.1 ---
Subjective Subjective Interval history: Summary: This is a 79-year-old female with a history of COPD and chronic respiratory failure presents with a cough which is productive of green phlegm, as well as being COVID positive. She would exacerbation of her dyspnea. Subjective: She was feeling better today. Less cough. Much better energy. Her appetite is improved. Exam Vital Signs (past 8 hours): - 07/25/24 00:28 07/25/24 02:04 07/25/24 05:00 Temperature 98.6 F 98.4 F Pulse Rate 93 H 74 74 Respiratory Rate 18 18 19 Blood Pressure 140/69 142/56 H Pulse Oximetry 96 96 94 Oxygen Delivery Method Nasal Cannula Oxygen Flow Rate 2 3 2 Fraction of Inspired Oxygen 28 Fraction of Inspired Oxygen 28 SaO2/FiO2 Ratio 342 Oxygen Delivery Method Nasal Cannula Oxygen Flow Rate 2 Narrative Exam Narrative: NAD, alert and oriented. Fluent speech. Lungs are wheezy and rhonchorous, normal rate and effort. Improved overall. Heart is regular, no murmur gallop or rub. Abdomen is soft, non distended. Extremities are free of edema. Objective Labs 07/25/24 04:36 07/25/24 04:36 Labs: Laboratory Results - last 24 hr 07/24/24 07/25/24 07:48 04:36 WBC 19.2 H 12.8 H RBC 5.77 H 4.78 Hgb 14.4 12.0 Hct 44.6 36.9 MCV 77.3 L 77.2 L MCH 25.0 L 25.1 L MCHC 32.4 32.5 RDW 19.7 H 20.1 H Plt Count 429 H 344 Neut % (Auto) 72.6 84.2 H Lymph % (Auto) 15.8 L 9.6 L [place] % (Auto) 10.1 6.0 Eos % (Auto) 1.1 L 0.0 L Baso % (Auto) 0.4 0.2 Neut # (Auto) 37087 H 04430 H Lymph # (Auto) 3000 1200 [place] # (Auto) 1900 H 800 Eos # (Auto) 200 0 Baso # (Auto) 100 0 Platelet Estimate Adequate on smear RBC Morphology See below Anisocytosis 1+ H Macrocytosis 1+ H PT 23.2 H INR 2.0 H Sodium 140 134 L Potassium 4.6 4.2 Chloride 104 104 Carbon Dioxide 25 20 L BUN 24 H 29 H Creatinine 1.15 H 0.96 Estimated GFR 49 L > 60 BUN/Creatinine Ratio 20.9 30.2 H Glucose 159 H 240 H Lactate 1.9 Calcium 9.2 8.7 Total Bilirubin 1.3 AST 27 ALT 20 Alkaline Phosphatase 131 H Troponin I 0.012 NT-Pro-B Natriuret Pep 1200 H Total Protein 7.6 Albumin 4.2 Globulin 3.4 Albumin/Globulin Ratio 1.2 Chlamy pneumoniae PCR Not detected Adenovirus (PCR) Not detected B. pertussis DNA (PCR) Not detected B.parapertussis DNA PCR Not detected Coronavirus OC43 (PCR) Not detected Coronavirus HKU1 (PCR) Not detected Coronavirus 229E (PCR) Not detected SARS-CoV-2 (PCR) Detected H Coronavirus NL63 (PCR) Not detected Human Metapneumovir PCR Not detected Influenza Type A (PCR) Not detected Influenza Type B (PCR) Not detected M. pneumoniae (PCR) Not detected Parainfluenza 1 (PCR) Not detected Parainfluenza 2 (PCR) Not detected Parainfluenza 3 (PCR) Not detected Parainfluenza 4 (PCR) Not detected RSV (PCR) Not detected Entero/Rhino (PCR) Not detected PFSH Social History household members: family and children Smoking Status: Current every day smoker alcohol intake: never Assessment & Plan Assessment & Plan narrative: 1. COVID and pneumonia, present on admission and active. 2. Acute on chronic hypoxic respiratory failure, present on admission and active. 3. Possible superimposed bacterial pneumonia, present on admission and active. 4. COPD with exacerbation, present on admission and active. 5. Possible pulmonary edema, present on admission and active. PLAN: -oxygen, wean to baseline as able, this is 3 L. -continue IV antibiotics for possible bacterial pneumonia. -continue remdesivir and dexamethasone for COVID. -COVID isolation. -telemetry Full code Daughter is proxy RADHA is 07/26, home with daughter. Time-Based Coding :: [TOTAL MINUTES] spent with patient and on the chart (including review of chart, obtaining history, exam, reviewing outside data, placing orders, documenting exam and treatment plan, and counseling patient) on [DATE]. Quality VTE Deep Vein Thrombosis/Pulmonary Embolism Present on Admission: No
[2024-07-25] MEDS: ALBUTEROL/IPRATROPIUM 3 ML AMPUL INH ×3 (08:19→18:23)
[2024-07-25] MEDS: DOCUSATE 100 MG CAPSULE PO ×2 (08:33→22:14)
[2024-07-25] MEDS: LIDOCAINE 5% PATCH 1 EACH TOP (08:33)
[2024-07-25] MEDS: PREGABALIN 50 MG CAPSULE 100 MG PO ×3 (08:33→22:14)
[2024-07-25] MEDS: CYCLOBENZAPRINE 10 MG TABLET PO ×3 (08:33→22:14)
[2024-07-25] MEDS: CHOLECALCIFEROL (VITAMIN D3) 1,000 UNIT TABLET 1000 UNIT PO (08:33)
[2024-07-25] MEDS: INSULIN LISPRO 100 UNIT/ML 3ML VIAL SUBCUT ×4 (08:34→22:13)
[2024-07-25] MEDS: BENZONATATE 100 MG CAPSULE PO ×2 (14:07→22:14)
--- NOTE | 2024-07-25 16:12 | CM.DANOTE ---
Initial DCP Assessment Note Pt is a 79 yo female, resident at [facility] in [place], COVID+ admitted for monitoring and management of resp failure. Patient is on oxygen at home, managed by [facility]. PCP: Lawanda Gonzalez (Ruddy Lugo) Payer: Ranjit AHUMADA/JHOANA Reviewed chart, spoke with patient briefly due to isolation precautions. SW consult placed, states Homeless. Patient reports she currently lives with her daughter, dtr's BF and her granddaughter at [facility]. Patient does not like living there but currently does not have an alternative and is on lists for subsidized housing [facility]. Patient receives food stamps, does not have a BALJEET caregiver. Patient reports having had [facility] in the past. Patient would like [facility] again. This ACCOUNT MANAGER SALES REPRESENTATIVE unable to complete HH referral this afternoon. F2F and HH order needed. HH referral still needed. If [facility] cannot accept, patient agreeable to [facility] as an alternative. Plan: Discharge home w/family is anticipated. Patient is a good candidate for HH services if available to her. CM team will plan to follow clinical course closely. DARA Tucker Discharge Planning/Care Management CM Discharge Assessment Start: 07/25/24 16:09 Freq: Status: Active Protocol: Document 07/25/24 16:09 LINDSAY (Rec: 07/25/24 16:12 LINDSAY [id number]) Discharge Planning Assessment Assigned Job Boss DARA Hopkins DPOA/Assigned Designee Name nona Hurtado Contact Information [phone] Advance Directives? Yes: In seat of walker. Daughter knows where they are Advance Directives on File No History Provided By Patient,Medical Record Prior Living Arrangements Apartment/Condo Comment Lives with daughter, her BF and her granddaughter Household Members family,children Type of transporation used prior to Relies on Others admit Independent with ADL's Yes Is patient alert and oriented? Yes Community Services used prior to Oxygen Therapy admission: Comment [facility] Already Rented / Owned FWW / Walker Patient/Family Preference Home with Home Health Barriers to Discharge No Discharge Plan Home with Home Health Transportation Arrangement Family Referrals Initiated Home Health Additional Comment 1. [facility] (patient's preference ) 2. [facility] Preference [facility] Has Agency SNF been contacted No
[2024-07-25] MEDS: RIVAROXABAN 10 MG TABLET 15 MG PO (17:37)
[2024-07-25] MEDS: INSULIN GLARGINE 100 UNIT/ML 3ML PEN 15 UNIT SUBCUT (22:13)
[2024-07-25] MEDS: MONTELUKAST 10 MG TABLET PO (22:14)
[2024-07-26 02:25] VITALS: BP 131/83; PULSE 82; RESP 19; TEMP 36.6; O2SAT 95
[2024-07-26 04:39] VITALS: BP 131/83; PULSE 82; RESP 18; TEMP 36.6; O2SAT 95
[2024-07-26 05:40] LABS: Add Manual Diff / Slide Review NO; Basophils Absolute Auto 100 /uL (0-100); Basophils Percent Auto 0.4 % (0-2); Eosinophils Absolute Auto 100 /uL (0-450); Eosinophils Percent Auto 0.4 % (2-4); Hematocrit 37.6 % (36-46); Hemoglobin 12.1 g/dL (12.0-16.0); Lymphocytes Absolute Auto 3400 /uL (1100-4500); Lymphocytes Percent Auto 21.1 % (25-40); Mean Corpuscular HGB Conc 32.1 % (30-36); Mean Corpuscular Hemoglobin 24.8 PG (26-34); Mean Corpuscular Volume 77.3 fL (80-100); Monocytes Absolute Auto 1100 /uL (0-900); Monocytes Percent Auto 6.6 % (3-14); Neutrophils Absolute Auto 11600 /uL (1500-7000); Neutrophils Percent Auto 71.5 % (50-75); Platelet Count 398 X10^3/uL (150-400); Red Blood Cell Count 4.87 X10^6/uL (4.0-5.2); White Blood Cell Count 16.2 X10^3/uL (4.5-11.0)
[2024-07-26 05:48] LABS: BUN Creatinine Ratio 28.6 (6-22); Blood Urea Nitrogen 26 mg/dL (7-17); Calcium 9.1 mg/dL (8.4-10.2); Carbon Dioxide 25 mmol/L (22-32); Chloride 107 mmol/L (98-107); Estimated Glomerular Filt Rate > 60 mL/min (>60); Glucose 135 mg/dL (80-110); HEMOLYSIS < 15 (0-50); Potassium 4.5 mmol/L (3.4-5.1); Sodium 136 mmol/L (137-145)
[2024-07-26] MEDS: PANTOPRAZOLE DR 40 MG TABLET PO (06:59)
[2024-07-26] MEDS: ALBUTEROL/IPRATROPIUM 3 ML AMPUL INH (07:45)
[2024-07-26 07:46] VITALS: O2SAT 94
[2024-07-26] MEDS: CYCLOBENZAPRINE 10 MG TABLET PO (08:45)
[2024-07-26] MEDS: PREGABALIN 50 MG CAPSULE 100 MG PO (08:45)
[2024-07-26] MEDS: DOCUSATE 100 MG CAPSULE PO (08:45)
[2024-07-26] MEDS: LIDOCAINE 5% PATCH 1 EACH TOP (08:46)
[2024-07-26] MEDS: DEXAMETHASONE 10 MG/ML VIAL 6 MG IV (08:46)
[2024-07-26] MEDS: CHOLECALCIFEROL (VITAMIN D3) 1,000 UNIT TABLET 1000 UNIT PO (08:46)
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
--- NOTE | 2024-07-26 09:41 | PC.NURSE ---
Addendum entered by Palma Manrqiue R.N. 07/26/24 10:02: Pt transportation here Pt escorted by staff via W/C to waiting vehicle D/C in stable status Original Note: Pt status improved. Does however continue w/ cough Orders for discharge received D/C intact. Home instructions given w/ understanding Awaitiing ride. Call light w/in reach, Pt calls appropriately for needs,
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
== END 2024-07-26 10:00 | disposition home health service (06) | DRG 177 ==
LOC: ED 08:04 → AC 09:19
PROVIDERS: Admitting Provider Hospitalist; Emergency Provider Emergency Medicine; PCP Family Medicine; Visit Provider Hospitalist
DX: U07.1 COVID-19 (principal); J15.9 Unspecified bacterial pneumonia; J96.21 Acute and chronic respiratory failure with hypoxia; J44.0 Chronic obstructive pulmonary disease with (acute) lower respiratory infection; J44.1 Chronic obstructive pulmonary disease with (acute) exacerbation; J81.1 Chronic pulmonary edema; I48.91 Unspecified atrial fibrillation; F17.200 Nicotine dependence, unspecified, uncomplicated; Z99.81 Dependence on supplemental oxygen; Z79.01 Long term (current) use of anticoagulants
CPT/HCPCS: 36415; 71045; 80048; 80053; 82962; 83605; 83880; 84484; 85025; 85610; 87040; 87070; 87205; 87633; 93005; 94640; 94762; 96361; 96365; 96367; 96375; 99285; J0696; J1100; J1815; J2919; J7613

== ENCOUNTER 2024-08-06 15:14 | Emergency (ER) | payer OTHER, MEDICAID, SELFPAY ==
[2024-07-24 15:27] VITALS: BMI 33.3
[2024-08-06] VITALS (57 sets, daily range): BP systolic 77–138; BP diastolic 44–82; PULSE 61–97; RESP 14–27; TEMP 36.5; O2SAT 90–98; BMI 34.3
--- NOTE | 2024-08-06 15:30 | EKG_ITS ---
[facility] [address] [place] [address] Test Date: 2024-08-06 Pat Name: Lakshmi Aquino Department: [facility] Room: Gender: Female Crime Lab Technician: RITA : 1945 Requested By: Order Number: [id number] Reading MD: Tom Weldon MD Measurements Intervals [place] Rate: 73 P: [place]: QRS: -67 QRSD: 142 T: 8 QT: 428 QTc: 471 Interpretive Statements Atrial fibrillation Right bundle branch block Left anterior fascicular block Bifascicular block NO SIGNIFICANT CHANGE FROM PRIOR TRACING Electronically Signed On 08-07-2024 7:30:22 PST by Tom Weldon MD
[2024-08-06 15:39] LABS: Alanine Aminotransferase 18 IU/L (<35); Albumin 3.6 g/dL (3.5-5.0); Albumin Globulin Ratio 1.1 (1.0-2.8); Alkaline Phosphatase 92 U/L (38-126); Aspartate Aminotransferase 22 IU/L (14-36); BUN Creatinine Ratio 14.6 (6-22); Bilirubin Total 0.8 mg/dL (0.2-1.3); Blood Urea Nitrogen 14 mg/dL (7-17); Calcium 9.3 mg/dL (8.4-10.2); Carbon Dioxide 29 mmol/L (22-32); Chloride 101 mmol/L (98-107); Estimated Glomerular Filt Rate > 60 mL/min (>60); Globulin 3.2 g/dL (1.7-4.1); Glucose 136 mg/dL (80-110); HEMOLYSIS < 15 (0-50); Lipase 51 U/L (23-300); Potassium 4.8 mmol/L (3.4-5.1); Sodium 134 mmol/L (137-145); Total Protein 6.8 g/dL (6.3-8.2)
[2024-08-06 15:42] LABS: Add Manual Diff / Slide Review NO; Basophils Absolute Auto 100 /uL (0-100); Basophils Percent Auto 0.5 % (0-2); Eosinophils Absolute Auto 100 /uL (0-450); Eosinophils Percent Auto 1.1 % (2-4); Hematocrit 43.5 % (36-46); Hemoglobin 14.1 g/dL (12.0-16.0); Lymphocytes Absolute Auto 3100 /uL (1100-4500); Mean Corpuscular HGB Conc 32.4 % (30-36); Mean Corpuscular Hemoglobin 25.1 PG (26-34); Mean Corpuscular Volume 77.4 fL (80-100); Monocytes Absolute Auto 900 /uL (0-900); Monocytes Percent Auto 8.2 % (3-14); Neutrophils Absolute Auto 7300 /uL (1500-7000); Neutrophils Percent Auto 63.2 % (50-75); Platelet Count 306 X10^3/uL (150-400); Red Blood Cell Count 5.62 X10^6/uL (4.0-5.2); Red Cell Distribution Width 19.8 % (11.6-14.8); White Blood Cell Count 11.5 X10^3/uL (4.5-11.0)
[2024-08-06 17:19] LABS: Creatine Kinase 42 U/L (30-135)
[2024-08-06 17:29] LABS: NT-proBNP (BNP-Adult 18+) 512 pg/mL (<450)
[2024-08-06 17:31] LABS: Troponin I < 0.012 ng/mL (0.01-0.034)
--- NOTE | 2024-08-06 17:46 | PC.NURSE ---
Notified provider of hypotension. No new orders.
--- NOTE | 2024-08-06 18:59 | DI.CT.S_ITS ---
PROCEDURE: CT ABDOMEN PELVIS WO CON INDICATIONS: Abdominal pain TECHNIQUE: Axial sections were acquired from the lung bases to the pubic symphysis. Coronal and sagittal reformats were performed. For radiation dose reduction, the following was used: automated exposure control, adjustment of mA and/or kV according to patient size. COMPARISON: [facility], CT, CT ABDOMEN PELVIS WO CON, 03/06/2024, 13:14. FINDINGS: Image quality: Diagnostic. Lower Chest: Bibasilar scarring/atelectasis is seen. Heart size is enlarged, no pericardial effusion. Dense atherosclerotic calcifications are noted in coronary arteries. URINARY: Right Kidney: No stones or hydronephrosis. Right Ureter: No hydroureter. Left Kidney: Nonobstructing stone is seen in upper pole left kidney measures up to 1.5 x 0.7 cm in size and 1265 Hounsfield unit in density. There is no hydronephrosis or obstructing renal stone. Left Ureter: No hydroureter. Bladder: Normal wall thickness. No stones. ABDOMEN: Liver: No contour-deforming solid mass. Gallbladder: Gallbladder is surgically absent. Biliary ducts: No biliary dilation. Pancreas: No ductal dilation. Spleen: Size is within normal limits. Adrenal Glands: 1.9 x 1.5 cm left adrenal nodule is seen series 2, image 41 unchanged from prior study. No right adrenal nodules. Stomach and Bowel: Normal colonic caliber, without significant wall thickening. No abnormal gastric or small bowel wall thickening. No abscess collection. Peritoneum: No abnormal intraperitoneal fluid. No free air. Ventral Wall: No hernia. Abdominal Nodes: No enlarged retroperitoneal or mesenteric lymph nodes. Vessels: Aorta and inferior vena cava are normal in size. Extensive atherosclerotic calcifications throughout abdominal aorta and its major branches are seen. PELVIS: Pelvic Organs: Unremarkable. Pelvic Nodes: Unremarkable. Miscellaneous: No inguinal hernias are seen. Bones: Prior vertebral plasty at L1 and L2 levels are seen. No acute vertebral body compression fracture. No aggressive appearing bony lesions. IMPRESSION: 1. No obstructing stones or hydronephrosis. Nonobstructing left renal calculus. 2. No bowel obstruction or abnormal bowel wall thickening. No free fluid or free air. 3. Hypodense nodule in left adrenal gland which may represent adrenal adenoma. Dictated by: Davy Wallace M.D. on 08/06/2024 at 19:31 Approved by: Davy Wallace M.D. on 08/06/2024 at 19:35
--- NOTE | 2024-08-06 19:13 | ED_ITS ---
HPI - Abdominal Pain General Chief Complaint: Abdominal Pain Stated Complaint: Abd Pain Time Seen by Provider: 08/06/24 18:59 Source: patient and EMS Mode of arrival: EMS History of Present Illness HPI narrative: 79-year-old female with history of atrial fibrillation on Xarelto chronic anticoagulation, followed by Cardiology with echocardiogram three weeks ago reportedly reassuring, complains of upper and left abdominal discomfort starting yesterday, worse through the day today. Some nausea without emesis. No loose stools. No black or red stools. No injury trauma new activities. No painful urination or frequency of urination. She does not wear oxygen during the awake hours, but uses 2 L at night. Denies cough and shortness of breath. Denies chest pain. Related Data Home Medications Medication Instructions Recorded Confirmed cholecalciferol (vitamin D3) 25 1,000 mcg PO DAILY 02/02/24 07/24/24 mcg (1,000 unit) capsule (Vitamin D3) cyclobenzaprine 10 mg tablet 10 mg PO TID 02/02/24 07/24/24 empagliflozin 10 mg tablet 10 mg PO DAILY 02/02/24 07/24/24 (Jardiance) furosemide 20 mg tablet 20 mg PO DAILY 02/02/24 07/24/24 hydrocodone 10 mg-acetaminophen 1 tab PO TID 02/02/24 07/24/24 325 mg tablet insulin glargine 100 unit/mL (3 24 unit SUBCUT BID 02/02/24 07/24/24 mL) subcutaneous pen (Lantus Solostar U-100 Insulin) lisinopril 20 mg tablet 20 mg PO DAILY 02/02/24 07/24/24 montelukast 10 mg tablet 10 mg PO ONCE PM 02/02/24 07/24/24 ondansetron 8 mg disintegrating 8 mg PO Q8H PRN nausea/vomiting 02/02/24 07/24/24 tablet pantoprazole 40 mg tablet,delayed 40 mg PO DAILY 02/02/24 07/24/24 release pregabalin 100 mg capsule 100 mg PO TID 02/02/24 07/24/24 rivaroxaban 15 mg tablet (Xarelto) 15 mg PO QPM 02/02/24 07/24/24 albuterol sulfate 2.5 mg/3 mL 2.5 mg inhalation Q4H PRN wheezing 02/03/24 07/24/24 (0.083 %) solution for nebulization albuterol sulfate 90 mcg/actuation 2 puff inhalation Q6H PRN wheezing 02/03/24 07/24/24 aerosol inhaler ipratropium 0.5 mg-albuterol 3 mg 3 ml inhalation DAILY PRN SOB 02/03/24 07/24/24 (2.5 mg base)/3 mL nebulization soln lidocaine 5 % topical patch 1 patch topical DAILY 02/03/24 07/24/24 potassium chloride 10 mEq 10 meq PO BID 02/03/24 07/24/24 tablet,extended release propranolol 20 mg tablet 20 mg PO 3XD 07/24/24 07/24/24 buspirone 10 mg tablet 10 mg PO 3XD 07/25/24 07/25/24 pramipexole 1 mg tablet 1 mg PO ONCE PM 07/25/24 07/25/24 Previous Rx's Medication Instructions Recorded doxycycline hyclate 100 mg capsule 100 mg PO DAILY #5 caps 07/26/24 prednisone 50 mg tablet 50 mg PO DAILY #3 tabs 07/26/24 Allergies Allergy/AdvReac Type Severity Reaction Status Date / Time amlodipine Allergy Hypotension Verified 08/06/24 15:24 metoprolol Allergy Hypotension Verified 08/06/24 15:24 shellfish derived Allergy Verified 08/06/24 15:24 tramadol Allergy Verified 08/06/24 15:24 Review of Systems Review of Systems Narrative: See H&P Patient History Social History household members: family and children Smoking Status: Current every day smoker alcohol intake: never Smoking Status: Current every day smoker tobacco type: vaping alcohol intake frequency: 0-2 drinks per day Substance Use Type: marijuana Exam Narrative Exam Narrative: GENERAL: Well-developed patient, in mild distress. HEAD: Atraumatic. Normocephalic. EYES: Pupils equal round and reactive. Extraocular motions intact. No scleral icterus. No injection or drainage. ENT: Nose without bleeding, purulent drainage. Throat without erythema, tonsillar hypertrophy or exudate. Airway patent. NECK: Trachea midline. Non tender CARDIOVASCULAR: Regular rate and rhythm without murmurs, gallops, or rubs. RESPIRATORY: Clear to auscultation. Breath sounds equal bilaterally. No wheezes, rales, or rhonchi. GASTROINTESTINAL: Abdomen soft, non-tender, nondistended. EXTREMITIES: No edema or joint tenderness. BACK: Nontender without deformity or crepitance. No flank tenderness. NEURO: AOx3. Motor functions grossly nonfocal SKIN: No rash or erythema of visible areas Initial Vital Signs Initial Vital Signs: Vital Signs Pulse Rate 78 08/06/24 15:17 Respiratory Rate 22 08/06/24 15:17 Course Orders Ordered: ED Orders 08/06/24 22:12 Troponin I Stat Discontinued Medications Famotidine (Famotidine 20 Mg/2 Ml Vial) 20 mg IV NOW ANNA Last Admin: 08/06/24 20:25 Dose: 20 mg Documented By: RENA Ondansetron HCl (Ondansetron 4 Mg/2 Ml Inj) 4 mg IV NOW PRN PRN Reason: Nausea And Vomiting Ondansetron HCl (Ondansetron 4 Mg Odt) 4 mg PO NOW PRN PRN Reason: Nausea And Vomiting Vital Signs Vital signs: Vital Signs - 8 hr 08/06/24 21:20 08/06/24 21:20 08/06/24 21:30 Pulse Rate 75 76 Respiratory Rate 16 17 Blood Pressure 118/58 L Pulse Oximetry Oxygen Delivery Method 08/06/24 21:30 08/06/24 21:35 08/06/24 21:35 Pulse Rate 90 Respiratory Rate Blood Pressure 114/57 L 95/63 Pulse Oximetry 96 Oxygen Delivery Method 08/06/24 21:41 08/06/24 21:41 08/06/24 21:45 Pulse Rate 76 76 Respiratory Rate 17 16 Blood Pressure 138/63 Pulse Oximetry Oxygen Delivery Method 08/06/24 21:45 08/06/24 21:50 08/06/24 21:50 Pulse Rate 76 Respiratory Rate 18 Blood Pressure 125/57 L 130/59 L Pulse Oximetry Oxygen Delivery Method 08/06/24 21:55 08/06/24 21:55 08/06/24 22:01 Pulse Rate 74 75 Respiratory Rate 17 18 Blood Pressure 121/58 L 136/62 Pulse Oximetry Oxygen Delivery Method 08/06/24 22:05 08/06/24 22:31 08/06/24 23:00 Pulse Rate 75 78 79 Respiratory Rate 18 23 19 Blood Pressure 121/53 L 120/57 L 123/57 L Pulse Oximetry 94 95 Oxygen Delivery Method Room Air MDM - Abdominal Pain Lab Data Attestation: I reviewed the patient's lab results. Lab results narrative: White blood cell count 96189, hemoglobin 14.1, platelets adequate. Basic metabolic panel unremarkable. Liver functions normal, lipase normal. Troponin negative. 08/06/24 15:00 08/06/24 15:00 Labs: Lab Results 08/06/24 08/06/24 08/06/24 Range/Units 15:00 19:53 22:12 WBC 11.5 H (4.5-11.0) X10^3/uL RBC 5.62 H (4.0-5.2) X10^6/uL Hgb 14.1 (12.0-16.0) g/dL Hct 43.5 (36-46) % MCV 77.4 L (80-100) fL MCH 25.1 L (26-34) PG MCHC 32.4 (30-36) % RDW 19.8 H (11.6-14.8) % Plt Count 306 (150-400) X10^3/uL Neut % (Auto) 63.2 (50-75) % Lymph % (Auto) 27.0 (25-40) % [place] % (Auto) 8.2 (3-14) % Eos % (Auto) 1.1 L (2-4) % Baso % (Auto) 0.5 (0-2) % Neut # (Auto) 7300 H (4973-6287) /uL Lymph # (Auto) 3100 (1551-7838) /uL [place] # (Auto) 900 (0-900) /uL Eos # (Auto) 100 (0-450) /uL Baso # (Auto) 100 (0-100) /uL Sodium 134 L (137-145) mmol/L Potassium 4.8 (3.4-5.1) mmol/L Chloride 101 (98-107) mmol/L Carbon Dioxide 29 (22-32) mmol/L BUN 14 (7-17) mg/dL Creatinine 0.96 (0.52-1.04) mg/dL Estimated GFR > 60 (>60) mL/min BUN/Creatinine Ratio 14.6 (6-22) Glucose 136 H (80-110) mg/dL Calcium 9.3 (8.4-10.2) mg/dL Total Bilirubin 0.8 (0.2-1.3) mg/dL AST 22 (14-36) IU/L ALT 18 (<35) IU/L Alkaline Phosphatase 92 (38-126) U/L Total Creatine Kinase 42 (30-135) U/L Troponin I < 0.012 < 0.012 (0.01-0.034) ng/mL NT-Pro-B Natriuret Pep 512 H (<450) pg/mL Total Protein 6.8 (6.3-8.2) g/dL Albumin 3.6 (3.5-5.0) g/dL Globulin 3.2 (1.7-4.1) g/dL Albumin/Globulin Ratio 1.1 (1.0-2.8) Lipase 51 (23-300) U/L Stl C. cayetanensis PCR Not detected (Not Detect) Stool Rotavirus (PCR) Not detected (Not Detect) Stool Adenovirus (PCR) Not detected (Not Detect) Stool Astrovirus (PCR) Not detected (Not Detect) Stool Cryptosporidium PCR Not detected (Not Detect) Stl E.coli Shiga Tox PCR Not detected (Not Detect) St Sh/Enteroin Ecoli PCR Not detected (Not Detect) Stl Enterotoxigenic E PCR Not detected (Not Detect) Stool EPEC (PCR) Not detected (Not Detect) Stl E. histolytica PCR Not detected (Not Detect) Stool Giardia Lamblia PCR Not detected (Not Detect) Stool Sapovirus (PCR) Not detected (Not Detect) Stl P. shigelloides PCR Not detected (Not Detect) St Y.enterocolitica PCR Not detected (Not Detect) Stool Vibrio (PCR) Not detected (Not Detect) Stl Vibrio cholerae PCR Not detected (Not Detect) Stl Enteroaggr Ecoli PCR Not detected (Not Detect) Stl Norovirus GI/GII PCR Not detected (Not Detect) Campylobacter (PCR) Not detected (Not Detect) C. difficile Tox (PCR) Not detected (Not Detect) Salmonella (PCR) Not detected (Not Detect) Imaging Data CT scan - abdomen/pelvis: Radiologist's Impression: [address] [address] [address] Scan Report Signed Patient: Lakshmi Aquino MR#: [id number] : 1945 Acct:[id number] Age/Sex: 79 / F Date of Service: 08/06/24 Loc: ED Accession Number: [id number] Procedure: CT abdomen pelvis w con Ordering Provider: Kt Mckeon MD PROCEDURE: CT ABDOMEN PELVIS WO CON INDICATIONS: Abdominal pain TECHNIQUE: Axial sections were acquired from the lung bases to the pubic symphysis. Coronal and sagittal reformats were performed. For radiation dose reduction, the following was used: automated exposure control, adjustment of mA and/or kV according to patient size. COMPARISON: [facility], CT, CT ABDOMEN PELVIS WO CON, 03/06/2024, 13:14. FINDINGS: Image quality: Diagnostic. Lower Chest: Bibasilar scarring/atelectasis is seen. Heart size is enlarged, no pericardial effusion. Dense atherosclerotic calcifications are noted in coronary arteries. URINARY: Right Kidney: No stones or hydronephrosis. Right Ureter: No hydroureter. Left Kidney: Nonobstructing stone is seen in upper pole left kidney measures up to 1.5 x 0.7 cm in size and 1265 Hounsfield unit in density. There is no hydronephrosis or obstructing renal stone. Left Ureter: No hydroureter. Bladder: Normal wall thickness. No stones. ABDOMEN: Liver: No contour-deforming solid mass. Gallbladder: Gallbladder is surgically absent. Biliary ducts: No biliary dilation. Pancreas: No ductal dilation. Spleen: Size is within normal limits. Adrenal Glands: 1.9 x 1.5 cm left adrenal nodule is seen series 2, image 41 unchanged from prior study. No right adrenal nodules. Stomach and Bowel: Normal colonic caliber, without significant wall thickening. No abnormal gastric or small bowel wall thickening. No abscess collection. Peritoneum: No abnormal intraperitoneal fluid. No free air. Ventral Wall: No hernia. Abdominal Nodes: No enlarged retroperitoneal or mesenteric lymph nodes. Vessels: Aorta and inferior vena cava are normal in size. Extensive atherosclerotic calcifications throughout abdominal aorta and its major branches are seen. PELVIS: Pelvic Organs: Unremarkable. Pelvic Nodes: Unremarkable. Miscellaneous: No inguinal hernias are seen. Bones: Prior vertebral plasty at L1 and L2 levels are seen. No acute vertebral body compression fracture. No aggressive appearing bony lesions. IMPRESSION: 1. No obstructing stones or hydronephrosis. Nonobstructing left renal calculus. 2. No bowel obstruction or abnormal bowel wall thickening. No free fluid or free air. 3. Hypodense nodule in left adrenal gland which may represent adrenal adenoma. Dictated by: Davy Wallace M.D. on 08/06/2024 at 19:31 Approved by: Davy Wallace M.D. on 08/06/2024 at 19:35 ECG Data Attestation: I personally reviewed and interpreted this ECG as follows: Interpretation: Atrial fibrillation with ventricular response rate 73, right bundle branch block pattern, left anterior fascicular block. QRS 142, QTC 471. MDM Narrative Medical decision making narrative: 79-year-old female with history of atrial fibrillation, Xarelto chronic anticoagulation, 2 days' duration increasing left upper quadrant abdominal discomfort, epigastric area discomfort, nonradiating, afebrile, sirs screen negative. Mild tenderness to epigastrium, not particularly tender in left upper quadrant abdomen, nor lower chest. EKG shows atrial fibrillation with right bundle and left anterior fascicular blocks, no change from 07/27 24 study, similar also 02/02/2024. Screening labs pending. Patient declines pain medications for now. Keep NPO. IV Pepcid. White blood cell count 48165, hemoglobin unremarkable, CMP unremarkable. Renal function adequate. CT abdomen and pelvis with IV contrast ordered. CT showed no acute changes, see radiology report. Patient had loose watery brown stool when copy of report relayed, specimen sent for GI panel testing. GI panel negative. Repeat interval troponin also negative. Further follow up as an outpatient. Patient discharged home, stable Discharge Plan Departure Patient Disposition: Home Clinical Impression: Abdominal pain Activity Restrictions/Additional Instructions: Upper abdominal pain unclear cause. Lab testing and urine testing unremarkable. CT abdomen and pelvis did not show any acute changes. EKG and serial blood tests not suggestive of heart attack as cause of your upper abdominal lower chest discomfort. Consider use of iqig-one-qzkikyf antacid such as famotidine/Pepcid, or omeprazole/Prilosec, to see if it relieves any discomfort that you might be having. IV Pepcid antacid was given. Further workup as an outpatient for now. That might include things like upper endoscopy or lower endoscopy, further imaging if needed, further cardiac workup if needed. Recheck symptoms in the next couple of days with your regular doctor if there is any persistence of symptoms. Return to this/nearest emergency department for any change worsening symptoms or any concerns prior Prescriptions: No Action lisinopril 20 mg tablet 20 mg PO DAILY Xarelto 15 mg tablet 15 mg PO QPM pantoprazole 40 mg tablet,delayed release (DR/EC) 40 mg PO DAILY Jardiance 10 mg tablet 10 mg PO DAILY furosemide 20 mg tablet 20 mg PO DAILY cyclobenzaprine 10 mg tablet 10 mg PO TID montelukast 10 mg tablet 10 mg PO ONCE PM ondansetron 8 mg tablet,disintegrating 8 mg PO Q8H PRN (Reason: nausea/vomiting) pregabalin 100 mg capsule 100 mg PO TID hydrocodone-acetaminophen 10-325 mg tablet 1 tab PO TID cholecalciferol (vitamin D3) [Vitamin D3] 25 mcg (1,000 unit) Capsule 1,000 mcg PO DAILY insulin glargine [Lantus Solostar U-100 Insulin] 100 unit/mL (3 mL) insulin pen 24 unit SUBCUT BID Patient Comments: [NO ORIGINAL SIG] ipratropium-albuterol 0.5 mg-3 mg(2.5 mg base)/3 mL solution for nebulization 3 ml inhalation DAILY PRN (Reason: SOB) albuterol sulfate 2.5 mg /3 mL (0.083 %) solution for nebulization 2.5 mg inhalation Q4H PRN (Reason: wheezing) potassium chloride 10 mEq tablet extended release 10 meq PO BID lidocaine 5 % adhesive patch,medicated 1 patch topical DAILY albuterol sulfate 90 mcg/actuation HFA aerosol inhaler 2 puff inhalation Q6H PRN (Reason: wheezing) propranolol 20 mg tablet 20 mg PO 3XD pramipexole 1 mg tablet 1 mg PO ONCE PM buspirone 10 mg tablet 10 mg PO 3XD prednisone 50 mg tablet 50 mg PO DAILY Qty: 3 0RF doxycycline hyclate 100 mg capsule 100 mg PO DAILY Qty: 5 0RF Referrals: Lawanda Gonzalez MD [Primary Care Provider] - Stand Alone Forms: Patient Portal/API/Survey
[2024-08-06] MEDS: FAMOTIDINE 20 MG/2 ML VIAL IV (20:25)
[2024-08-06 21:12] LABS: Adenovirus F 40/41 Not Detected (Not Detect); Astrovirus Not Detected (Not Detect); Campylobacter Not Detected (Not Detect); Clostridium difficile toxin AB Not Detected (Not Detect); Cryptosporidium Not Detected (Not Detect); Cyclospora cayetanensis Not Detected (Not Detect); Entamoeba histolytica Not Detected (Not Detect); Enteroaggregative E.coli Not Detected (Not Detect); Enteropathogenic E.coli Not Detected (Not Detect); Enterotoxigenic E.coli It/st Not Detected (Not Detect); Giardia lamblia Not Detected (Not Detect); Norovirus GI/GII Not Detected (Not Detect); Plesiomonsa shigelloides Not Detected (Not Detect); Rotavirus A Not Detected (Not Detect); Salmonella Not Detected (Not Detect); Sapovirus Not Detected (Not Detect); Shiga-like toxin-prod E.coli Not Detected (Not Detect); Shigella/Enteroinvasive E.coli Not Detected (Not Detect); Vibrio Not Detected (Not Detect); Vibrio cholerae Not Detected (Not Detect); Yersinia enterocolitica Not Detected (Not Detect)
[2024-08-06 22:40] LABS: Troponin I < 0.012 ng/mL (0.01-0.034)
== END 2024-08-06 23:25 | disposition home or self-care (01) ==
PROVIDERS: Emergency Medicine; Emergency Provider Emergency Medicine; PCP Family Medicine
DX: R10.32 Left lower quadrant pain (principal); R10.13 Epigastric pain; I48.91 Unspecified atrial fibrillation; I45.2 Bifascicular block; R79.89 Other specified abnormal findings of blood chemistry; R11.0 Nausea
CPT/HCPCS: 74177; 80053; 82550; 83690; 83880; 84484; 85025; 87507; 93005; 96374; 99284

== ENCOUNTER → 2024-08-16 12:58 | Outpatient (ROUT) | payer OTHER, MEDICAID, SELFPAY ==
[2024-07-24 15:27] VITALS: BMI 33.3
== END ==
PROVIDERS: PCP Family Medicine
DX: R09.3 Abnormal sputum (principal)
CPT/HCPCS: 87070; 87205

== ENCOUNTER 2024-10-02 21:00 | Emergency (ER) | payer OTHER, MEDICAID, SELFPAY ==
[2024-07-24 15:27] VITALS: BMI 33.3
[2024-10-02] VITALS (8 sets, daily range): BP systolic 101–125; BP diastolic 49–63; PULSE 72–87; RESP 17–27; TEMP 36.6; O2SAT 91–97; BMI 32.5
--- NOTE | 2024-10-02 21:33 | DI.RAD.S_ITS ---
PROCEDURE: XR ABDOMEN MIN 2V INDICATIONS: Constipation, no BM in 3 days. No longer passing gas. TECHNIQUE: 2 views of the abdomen were acquired. COMPARISON: None. FINDINGS: Surgical changes and devices: Right upper quadrant cholecystectomy clips. Bowel: Gas-filled loops of colon. Stool is seen within the rectum. No evidence of pneumoperitoneum. Soft tissues: No masses; visualized solid organ contours appear normal in size. No suspicious abdominal calcifications. Bones: No suspicious bony abnormalities. IMPRESSION: Nondistended gas-filled loops of colon. Stool seen within the rectum consistent with history of constipation. Approved by: Kathryn Majano M.D.,Ph.D. on 10/02/2024 at 23:52
[2024-10-02 21:55] LABS: Add Manual Diff / Slide Review NO; Basophils Absolute Auto 100 /uL (0-100); Basophils Percent Auto 0.7 % (0-2); Eosinophils Absolute Auto 100 /uL (0-450); Eosinophils Percent Auto 0.5 % (2-4); Hematocrit 43.1 % (36-46); Hemoglobin 13.7 g/dL (12.0-16.0); Lymphocytes Absolute Auto 1800 /uL (1100-4500); Lymphocytes Percent Auto 14.1 % (25-40); Mean Corpuscular HGB Conc 31.8 % (30-36); Mean Corpuscular Hemoglobin 24.3 PG (26-34); Mean Corpuscular Volume 76.2 fL (80-100); Monocytes Absolute Auto 900 /uL (0-900); Monocytes Percent Auto 6.8 % (3-14); Neutrophils Absolute Auto 10000 /uL (1500-7000); Neutrophils Percent Auto 77.9 % (50-75); Platelet Count 302 X10^3/uL (150-400); Red Blood Cell Count 5.65 X10^6/uL (4.0-5.2); Red Cell Distribution Width 17.8 % (11.6-14.8); White Blood Cell Count 12.8 X10^3/uL (4.5-11.0)
[2024-10-02 22:08] LABS: Alanine Aminotransferase 19 IU/L (<35); Albumin 3.9 g/dL (3.5-5.0); Albumin Globulin Ratio 1.3 (1.0-2.8); Alkaline Phosphatase 93 U/L (38-126); Aspartate Aminotransferase 27 IU/L (14-36); BUN Creatinine Ratio 18.4 (6-22); Bilirubin Total 0.6 mg/dL (0.2-1.3); Blood Urea Nitrogen 19 mg/dL (7-17); Calcium 9.3 mg/dL (8.4-10.2); Carbon Dioxide 26 mmol/L (22-32); Chloride 103 mmol/L (98-107); Estimated Glomerular Filt Rate 56 mL/min (>60); Glucose 165 mg/dL (80-110); HEMOLYSIS < 15 (0-50); Lipase 51 U/L (23-300); Potassium 4.5 mmol/L (3.4-5.1); Sodium 134 mmol/L (137-145); Total Protein 6.9 g/dL (6.3-8.2)
--- NOTE | 2024-10-02 22:31 | ED_ITS ---
HPI - Abdominal Pain General Chief Complaint: Abdominal Pain Stated Complaint: extremly constipated Time Seen by Provider: 10/02/24 21:32 Source: patient Mode of arrival: Family Vehicle Limitations: no limitations History of Present Illness HPI narrative: 79-year-old female history of atrial fibrillation on Xarelto, diabetes, hypertension, GERD, COPD who presents with complaint of abdominal pain. Patient states that she has not had a bowel movement in 3 days. States she was not passing gas. She states no nausea no vomiting. She describes pain in her abdomen no back or flank pain. No chest pain or shortness of breath. Patient states she was had issues with constipation she has not been taking anything to help with bowel movements. She denies any new urinary symptoms. Does use home O2 at nighttime. Has several medication allergies including IV contrast with the patient states causes swelling. She was unaware if she has had pretreatment in the past for imaging. Daily tobacco, occasional alcohol, no recreational drugs. Related Data Home Medications Medication Instructions Recorded Confirmed cholecalciferol (vitamin D3) 25 1,000 mcg PO DAILY 02/02/24 07/24/24 mcg (1,000 unit) capsule (Vitamin D3) cyclobenzaprine 10 mg tablet 10 mg PO TID 02/02/24 07/24/24 empagliflozin 10 mg tablet 10 mg PO DAILY 02/02/24 07/24/24 (Jardiance) furosemide 20 mg tablet 20 mg PO DAILY 02/02/24 07/24/24 hydrocodone 10 mg-acetaminophen 1 tab PO TID 02/02/24 07/24/24 325 mg tablet insulin glargine 100 unit/mL (3 24 unit SUBCUT BID 02/02/24 07/24/24 mL) subcutaneous pen (Lantus Solostar U-100 Insulin) lisinopril 20 mg tablet 20 mg PO DAILY 02/02/24 07/24/24 montelukast 10 mg tablet 10 mg PO ONCE PM 02/02/24 07/24/24 ondansetron 8 mg disintegrating 8 mg PO Q8H PRN nausea/vomiting 02/02/24 07/24/24 tablet pantoprazole 40 mg tablet,delayed 40 mg PO DAILY 02/02/24 07/24/24 release pregabalin 100 mg capsule 100 mg PO TID 02/02/24 07/24/24 rivaroxaban 15 mg tablet (Xarelto) 15 mg PO QPM 02/02/24 07/24/24 albuterol sulfate 2.5 mg/3 mL 2.5 mg inhalation Q4H PRN wheezing 02/03/24 07/24/24 (0.083 %) solution for nebulization albuterol sulfate 90 mcg/actuation 2 puff inhalation Q6H PRN wheezing 02/03/24 07/24/24 aerosol inhaler ipratropium 0.5 mg-albuterol 3 mg 3 ml inhalation DAILY PRN SOB 02/03/24 07/24/24 (2.5 mg base)/3 mL nebulization soln lidocaine 5 % topical patch 1 patch topical DAILY 02/03/24 07/24/24 potassium chloride 10 mEq 10 meq PO BID 02/03/24 07/24/24 tablet,extended release propranolol 20 mg tablet 20 mg PO 3XD 07/24/24 07/24/24 buspirone 10 mg tablet 10 mg PO 3XD 07/25/24 07/25/24 pramipexole 1 mg tablet 1 mg PO ONCE PM 07/25/24 07/25/24 Previous Rx's Medication Instructions Recorded doxycycline hyclate 100 mg capsule 100 mg PO DAILY #5 caps 07/26/24 prednisone 50 mg tablet 50 mg PO DAILY #3 tabs 07/26/24 Allergies Allergy/AdvReac Type Severity Reaction Status Date / Time amlodipine Allergy Hypotension Verified 08/06/24 15:24 metoprolol Allergy Hypotension Verified 08/06/24 15:24 shellfish derived Allergy Verified 08/06/24 15:24 tramadol Allergy Verified 08/06/24 15:24 Review of Systems Review of Systems ROS Unobtainable: All systems reviewed & are unremarkable except as noted in HPI and below Patient History Social History household members: family and children Smoking Status: Current every day smoker alcohol intake: never Smoking Status: Current every day smoker tobacco type: vaping alcohol intake frequency: 0-2 drinks per day Exam Narrative Exam Narrative: GENERAL: Alert and oriented x three, elderly female in mild distress. HEENT: Head normocephalic, atraumatic, EOMI, pupils reactive, face symmetric, moist mucous membranes NECK: Supple, full range of motion CARDIOVASCULAR: Regular rate and rhythm without murmurs, rubs or gallops. RESPIRATORY: Breath sounds equal bilaterally, no wheezes rales or rhonchi. ABDOMEN: Soft, nondistended. Patient is mildly tender generalized. Normoactive bowel sounds all 4 quadrants. No guarding or rebound, rigidity, no mass : No CVA tenderness EXTREMITIES: Normal range of motion, no clubbing or edema. Neurovascularly intact NEUROLOGICAL: Cranial nerves II through XII grossly intact. Moving all extremities SKIN: Warm, dry, no petechiae, no rashes or lesions. Initial Vital Signs Initial Vital Signs: Vital Signs Temperature 97.8 F 10/02/24 21:20 Pulse Rate 87 10/02/24 21:20 Respiratory Rate 18 10/02/24 21:20 Blood Pressure 104/54 L 10/02/24 21:20 Pulse Oximetry 95 10/02/24 21:20 Oxygen Delivery Method Room Air 10/02/24 21:20 Course Orders Ordered: ED Orders 10/02/24 21:31 EKG-12 Lead Stat 10/02/24 21:33 XR abdomen min 2V Stat 10/02/24 21:40 Complete Blood Count AUTO DIFF Stat Comprehensive Metabolic Panel Stat Lactate (Lactic Acid) Stat Lipase Stat 10/02/24 22:31 CT abdomen pelvis w con Stat 10/02/24 22:34 Consult to General Surgery Stat Ondansetron HCl (Ondansetron 4 Mg/2 Ml Inj) 4 mg IV NOW PRN PRN Reason: Nausea And Vomiting Ondansetron HCl (Ondansetron 4 Mg Odt) 4 mg PO NOW PRN PRN Reason: Nausea And Vomiting Discontinued Medications Diphenhydramine HCl (Diphenhydramine 50 Mg/Ml Vial) 25 mg IV NOW ONE Stop: 10/02/24 22:48 Last Admin: 10/02/24 22:52 Dose: 25 mg Documented By: MIRIAN Sodium Chloride (Normal Saline 0.9%) 1,000 mls @ 1,000 mls/hr IV BOLUS ONE Stop: 10/02/24 23:32 Last Infusion: 10/03/24 00:01 Dose: Infused Documented By: Admin: 10/02/24 22:52 Dose: 1,000 mls/hr Documented By: MIRIAN Ketorolac Tromethamine (Ketorolac 30 Mg/Ml Vial) 15 mg IV NOW ONE Stop: 10/03/24 00:48 Last Admin: 10/03/24 00:51 Dose: 15 mg Documented By: MIRIAN Methylprednisolone (Methylprednisolone 125 Mg/2 Ml Vial) 125 mg IV NOW ONE Stop: 10/02/24 22:48 Last Admin: 10/02/24 22:53 Dose: 125 mg Documented By: MIRIAN Mineral Oil (Mineral Oil 1 Each Enema) 1 each NH NOW ONE Stop: 10/03/24 00:44 Last Admin: 10/03/24 00:47 Dose: 1 each Documented By: MIRIAN Vital Signs Vital signs: Vital Signs - 8 hr 10/02/24 22:03 10/02/24 22:04 10/02/24 22:04 Pulse Rate 82 85 Respiratory Rate Blood Pressure 101/49 L Pulse Oximetry 95 96 Oxygen Delivery Method 10/02/24 22:24 10/02/24 22:24 10/02/24 22:30 Pulse Rate 79 81 Respiratory Rate 22 20 Blood Pressure 107/52 L Pulse Oximetry 91 96 Oxygen Delivery Method 10/02/24 22:30 10/02/24 22:56 10/02/24 22:56 Pulse Rate 80 Respiratory Rate 25 H Blood Pressure 115/55 L 125/55 L Pulse Oximetry 96 Oxygen Delivery Method 10/02/24 23:00 10/02/24 23:00 10/02/24 23:30 Pulse Rate 78 72 Respiratory Rate 27 H 17 Blood Pressure 123/63 Pulse Oximetry 97 95 Oxygen Delivery Method 10/03/24 00:00 10/03/24 00:01 10/03/24 00:01 Pulse Rate 74 76 Respiratory Rate 19 21 Blood Pressure 127/61 Pulse Oximetry 94 94 Oxygen Delivery Method 10/03/24 00:29 10/03/24 00:29 10/03/24 00:30 Pulse Rate 72 73 74 Respiratory Rate 16 17 18 Blood Pressure 149/68 H Pulse Oximetry 94 93 93 Oxygen Delivery Method 10/03/24 00:31 10/03/24 00:31 10/03/24 01:00 Pulse Rate 74 79 Respiratory Rate 17 20 Blood Pressure 149/68 H Pulse Oximetry 94 Oxygen Delivery Method 10/03/24 01:40 10/03/24 01:41 10/03/24 01:41 Pulse Rate 90 Respiratory Rate 18 19 Blood Pressure 136/108 H Pulse Oximetry 93 Oxygen Delivery Method 10/03/24 05:41 Pulse Rate 77 Respiratory Rate 18 Blood Pressure 116/56 L Pulse Oximetry 94 Oxygen Delivery Method Room Air MDM - Abdominal Pain Lab Data 10/02/24 21:40 10/02/24 21:40 Labs: Lab Results 10/02/24 Range/Units 21:40 WBC 12.8 H (4.5-11.0) X10^3/uL RBC 5.65 H (4.0-5.2) X10^6/uL Hgb 13.7 (12.0-16.0) g/dL Hct 43.1 (36-46) % MCV 76.2 L (80-100) fL MCH 24.3 L (26-34) PG MCHC 31.8 (30-36) % RDW 17.8 H (11.6-14.8) % Plt Count 302 (150-400) X10^3/uL Neut % (Auto) 77.9 H (50-75) % Lymph % (Auto) 14.1 L (25-40) % Archer % (Auto) 6.8 (3-14) % Eos % (Auto) 0.5 L (2-4) % Baso % (Auto) 0.7 (0-2) % Neut # (Auto) 91195 H (6546-8473) /uL Lymph # (Auto) 1800 (2091-9299) /uL Archer # (Auto) 900 (0-900) /uL Eos # (Auto) 100 (0-450) /uL Baso # (Auto) 100 (0-100) /uL Sodium 134 L (137-145) mmol/L Potassium 4.5 (3.4-5.1) mmol/L Chloride 103 (98-107) mmol/L Carbon Dioxide 26 (22-32) mmol/L BUN 19 H (7-17) mg/dL Creatinine 1.03 (0.52-1.04) mg/dL Estimated GFR 56 L (>60) mL/min BUN/Creatinine Ratio 18.4 (6-22) Glucose 165 H (80-110) mg/dL Lactate 1.8 (0.7-2.1) mmol/L Calcium 9.3 (8.4-10.2) mg/dL Total Bilirubin 0.6 (0.2-1.3) mg/dL AST 27 (14-36) IU/L ALT 19 (<35) IU/L Alkaline Phosphatase 93 (38-126) U/L Total Protein 6.9 (6.3-8.2) g/dL Albumin 3.9 (3.5-5.0) g/dL Globulin 3.0 (1.7-4.1) g/dL Albumin/Globulin Ratio 1.3 (1.0-2.8) Lipase 51 (23-300) U/L Imaging Data CT scan - abdomen/pelvis: Radiologist's Impression: Lakshmi Aquino??79??F??1945 ? Allergy/Adv: amlodipine, metoprolol, shellfish derived, tramadol (More??) Close Abdomen/Pelvis CT (Signed) Kathryn Majano - 10/02/24 Abdomen X-Ray (Signed) BellaireKathryn - 10/02/24 Abdomen/Pelvis CT (Signed) Davy Wallace - 08/06/24 Telemetry Strips 07/24/24 Telemetry Strips 07/24/24 Chest X-Ray (Signed) Alireza Bhagat - 07/24/24 Chest X-Ray (Signed) Arnoldo Hogue - 07/20/24 Abdomen/Pelvis CT (Signed) Gini Manzano - 03/06/24 Chest X-Ray (Signed) Gini Manzano - 03/06/[address] (Signed) Hayden Mcnulty - 02/02/24 Chest X-Ray (Signed) Hayden Mcnulty - 02/02/24 Chest X-Ray (Signed) Alireza Bhagat - 01/21/24 [facility] [address] CT Scan Report Signed Patient: Lakshmi Aquino MR#: [id number] : 1945 Acct:[id number] Age/Sex: 79 / F Date of Service: 10/02/24 Loc: ED Accession Number: [id number] Procedure: CT abdomen pelvis w con Ordering Provider: Olimpia Stapleton D.O. PROCEDURE: CT ABDOMEN PELVIS W CON INDICATIONS: concern for bowel obstruction TECHNIQUE: After the administration of intravenous contrast, axial sections acquired from the lung bases to the pubic symphysis. Coronal and sagittal reformats were performed. For radiation dose reduction, the following was used: automated exposure control, adjustment of mA and/or kV according to patient size. COMPARISON: None. FINDINGS: Image quality: Diagnostic. Lower Chest: No significant findings. ABDOMEN: Liver: No solid mass. Gallbladder: Surgically absent Biliary ducts: No biliary dilation. Pancreas: No ductal dilation. Spleen: Size is within normal limits. Adrenal Glands: Stable left adrenal gland nodule.. Kidneys and Ureters: Nonobstructing inferior pole left calculus measuring 1.6 cm (HU 1100). No hydronephrosis. No solid mass. No complex renal cystic lesion which requires follow up. Stomach and Bowel: Normal colonic caliber, without significant wall thickening. Stool within the colon and distal rectum consistent with history of constipation. Gas distended loops of ascending and transverse colon. No evidence of small-bowel obstruction. Peritoneum: No abnormal intraperitoneal fluid. No free air. Ventral Wall: No significant ventral hernia. Abdominal Nodes: No retroperitoneal or mesenteric adenopathy by size criteria. Vessels: Aorta and inferior vena cava are normal in size. Aorto bi iliac atherosclerotic calcifications. PELVIS: Pelvic Organs: Unremarkable. Bladder: No bladder wall thickening, accounting for underdistention. Pelvic Nodes: No enlarged lymph nodes. Miscellaneous: No inguinal hernias are seen. Bones: No aggressive osseous abnormality. Status post L1 and L2 vertebroplasty. No acute vertebral body compression fracture. Multilevel degenerative changes. IMPRESSION: High fecal loading consistent with history of constipation with proximal gas- filled loops of colon. No evidence of small-bowel obstruction. Non-obstructing left renal calculus. No hydronephrosis. Approved by: Kathryn Majano M.D.,Ph.D. on 10/03/2024 at 0:00 ?? MDM Narrative Medical decision making narrative: White count of 12.8, hemoglobin of 13 platelets of 302. Sodium 134 potassium 4.5 chloride of 103 CO2 26 BUN 19 creatinine of 1.03 glucose of 165 lactate of 1.8 LFTs are negative. X-ray shows nondistended gas-filled loops of colon stool seen within the rectum consistent with a history of constipation. CT abdomen pelvis high fecal loading consistent with a history of constipation proximal gas-filled loops colon no evidence of small-bowel obstruction. Patient is uncomfortable we will give a dose of Toradol attempt to avoid narcotics and slow her stool transit. Patient was given fluids. Received an enema here in the department. Patient had success with a having a large bowel movement here in the department and feels much better. Discharge Plan Departure Patient Disposition: Home Clinical Impression: Constipation Instructions: DI for Constipation Activity Restrictions/Additional Instructions: Follow up for recheck as needed. Make sure you are taking MiraLax daily you can also take Colace 1-2 tablets daily with constipation. These are available [email or web address]. I would recommend making sure your hydrating regularly and eating fluids such as watermelon, cherries or high-fiber foods with lots of liquid contact can help you have bowel movements. Please return for fevers new or worsening abdominal back or flank pain, persistent vomiting, lightheadedness or passing out, black or bloody stools if you are having a bowel movement or passing any flatus/farting or other new or concerning changes. Prescriptions: No Action lisinopril 20 mg tablet 20 mg PO DAILY Xarelto 15 mg tablet 15 mg PO QPM pantoprazole 40 mg tablet,delayed release (DR/EC) 40 mg PO DAILY Jardiance 10 mg tablet 10 mg PO DAILY furosemide 20 mg tablet 20 mg PO DAILY cyclobenzaprine 10 mg tablet 10 mg PO TID montelukast 10 mg tablet 10 mg PO ONCE PM ondansetron 8 mg tablet,disintegrating 8 mg PO Q8H PRN (Reason: nausea/vomiting) pregabalin 100 mg capsule 100 mg PO TID hydrocodone-acetaminophen 10-325 mg tablet 1 tab PO TID cholecalciferol (vitamin D3) [Vitamin D3] 25 mcg (1,000 unit) Capsule 1,000 mcg PO DAILY insulin glargine [Lantus Solostar U-100 Insulin] 100 unit/mL (3 mL) insulin pen 24 unit SUBCUT BID Patient Comments: [NO ORIGINAL SIG] ipratropium-albuterol 0.5 mg-3 mg(2.5 mg base)/3 mL solution for nebulization 3 ml inhalation DAILY PRN (Reason: SOB) albuterol sulfate 2.5 mg /3 mL (0.083 %) solution for nebulization 2.5 mg inhalation Q4H PRN (Reason: wheezing) potassium chloride 10 mEq tablet extended release 10 meq PO BID lidocaine 5 % adhesive patch,medicated 1 patch topical DAILY albuterol sulfate 90 mcg/actuation HFA aerosol inhaler 2 puff inhalation Q6H PRN (Reason: wheezing) propranolol 20 mg tablet 20 mg PO 3XD pramipexole 1 mg tablet 1 mg PO ONCE PM buspirone 10 mg tablet 10 mg PO 3XD prednisone 50 mg tablet 50 mg PO DAILY Qty: 3 0RF doxycycline hyclate 100 mg capsule 100 mg PO DAILY Qty: 5 0RF Referrals: Lawanda Gonzalez MD [Primary Care Provider] - Stand Alone Forms: Patient Portal/API/Survey
[2024-10-02] MEDS: diphenhydrAMINE 50 MG/ML VIAL 25 MG IV (22:52)
[2024-10-02] MEDS: SODIUM CHLORIDE 0.9% 1,000 ML 1000 ML IV (22:52)
[2024-10-02] MEDS: methylPREDNISolone 125 MG/2 ML VIAL IV (22:53)
[2024-10-02 23:09] LABS: Lactate (Lactic Acid) 1.8 mmol/L (0.7-2.1)
[2024-10-03] VITALS (9 sets, daily range): BP systolic 116–149; BP diastolic 56–108; PULSE 72–90; RESP 16–21; O2SAT 93–94
[2024-10-03] MEDS: MINERAL OIL 1 EACH ENEMA PR (00:47)
[2024-10-03] MEDS: KETOROLAC 30 MG/ML VIAL 15 MG IV (00:51)
== END 2024-10-03 05:45 | disposition home or self-care (01) ==
PROVIDERS: Emergency Provider Emergency Medicine; PCP Family Medicine
DX: K59.00 Constipation, unspecified (principal)
CPT/HCPCS: 36415; 74019; 74177; 80053; 83605; 83690; 85025; 96361; 96374; 96375; 99284; 99285; J1200; J1885; J2919; Q9967

== ENCOUNTER 2025-02-10 10:50 | Emergency (ER) | payer MEDICARE, MEDICAID, SELFPAY ==
[2024-07-24 15:27] VITALS: BMI 33.3
[2025-02-10] VITALS (21 sets, daily range): BP systolic 144–200; BP diastolic 64–86; PULSE 64–102; RESP 16–29; TEMP 36.5; O2SAT 91–97; BMI 31.7
--- NOTE | 2025-02-10 11:00 | DI.CT.S_ITS ---
PROCEDURE: CT ABDOMEN PELVIS W CON INDICATIONS: ab pain lower TECHNIQUE: After the administration of intravenous contrast, axial sections acquired from the lung bases to the pubic symphysis. Coronal and sagittal reformats were performed. For radiation dose reduction, the following was used: automated exposure control, adjustment of mA and/or kV according to patient size. COMPARISON: [facility], CT, CT ANGIO CHEST ABDOMEN PELVIS, 09/03/2023, 1:06. [facility], CT, CT ABDOMEN PELVIS WO CON, 08/06/2024, 19:07. [facility], CT, CT ABDOMEN PELVIS WO CON, 03/06/2024, 13:14. [facility], CT, CT ABDOMEN PELVIS W CON, 10/02/2024, 22:39. FINDINGS: Image quality: Diagnostic. Lower Chest: Mild consolidation can be seen within the left lower lobe. There is a subpleural right middle lobe nodule seen, measuring 7 mm, as on series 3, image 7, which is similar to priors. Dense calcification can be seen involving the mitral valve annulus. ABDOMEN: Liver: No solid mass. Gallbladder: Cholecystectomy. Biliary ducts: No biliary dilation. Pancreas: No ductal dilation. Spleen: Size is within normal limits. Accessory splenules can be seen along the hilum of the primary spleen. Adrenal Glands: No adrenal nodules. Kidneys and Ureters: No hydronephrosis. No solid mass. No complex renal cystic lesion which requires follow up. A 16 mm nonobstructing stone measuring greater than 1000 Hounsfield units can be seen within the inferior left kidney. Stomach and Bowel: Normal colonic caliber, without significant wall thickening. There is a moderate volume of stool seen within the colon. No dilated loops of small bowel are seen. Peritoneum: No abnormal intraperitoneal fluid. No free air. Ventral Wall: No significant ventral hernia. Abdominal Nodes: No retroperitoneal or mesenteric adenopathy by size criteria. Vessels: Aorta and inferior vena cava are normal in size. Atherosclerotic calcification is noted. PELVIS: Pelvic Organs: No adnexal masses are seen on either side. Bladder: No bladder wall thickening, accounting for underdistention. Pelvic Nodes: No enlarged lymph nodes. Miscellaneous: No inguinal hernias are seen. Bones: No aggressive osseous abnormality. Prior vertebroplasty cement can be seen at L1 and L2. Remote spinal fractures are seen, yet without an acute fracture. IMPRESSION: There is a moderate amount of stool seen within the colon. Please correlate with an underlying history of constipation. No dilated loops of small bowel are seen. Mild consolidative change can be seen involving the left lower lobe. Infiltrate is suspected, although differential diagnosis includes atelectasis. Additional findings: Right lower lobe subpleural nodule, similar to priors Calcification of the mitral valve annulus Cholecystectomy Accessory splenules Nonobstructing left-sided kidney stone Remote L1 and L2 vertebroplasty cement Remote Dictated by: Chauncey Kwok M.D. on 02/10/2025 at 11:05 Approved by: Chauncey Kwok M.D. on 02/10/2025 at 11:11
--- NOTE | 2025-02-10 11:04 | ED_ITS ---
HPI - Abdominal Pain General Chief Complaint: Abdominal Pain Stated Complaint: abd pain Time Seen by Provider: 02/10/25 10:57 History of Present Illness HPI narrative: Patient is a 79-year-old female history of atrial fibrillation on Xarelto diabetes hypertension GERD COPD presenting today with significant abdominal pain. Reports that it started last night. Feeling nauseous no actual vomiting yet. Denies any kind of chest pain. She was seen evaluated here in September for something similar. Has a several medication allergies including IV contrast which patient states causes swelling Related Data Home Medications Medication Instructions Recorded Confirmed cholecalciferol (vitamin D3) 25 1,000 mcg PO DAILY 02/02/24 07/24/24 mcg (1,000 unit) capsule (Vitamin D3) cyclobenzaprine 10 mg tablet 10 mg PO TID 02/02/24 07/24/24 empagliflozin 10 mg tablet 10 mg PO DAILY 02/02/24 07/24/24 (Jardiance) furosemide 20 mg tablet 20 mg PO DAILY 02/02/24 07/24/24 hydrocodone 10 mg-acetaminophen 1 tab PO TID 02/02/24 07/24/24 325 mg tablet insulin glargine 100 unit/mL (3 24 unit SUBCUT BID 02/02/24 07/24/24 mL) subcutaneous pen (Lantus Solostar U-100 Insulin) lisinopril 20 mg tablet 20 mg PO DAILY 02/02/24 07/24/24 montelukast 10 mg tablet 10 mg PO ONCE PM 02/02/24 07/24/24 ondansetron 8 mg disintegrating 8 mg PO Q8H PRN nausea/vomiting 02/02/24 07/24/24 tablet pantoprazole 40 mg tablet,delayed 40 mg PO DAILY 02/02/24 07/24/24 release pregabalin 100 mg capsule 100 mg PO TID 02/02/24 07/24/24 rivaroxaban 15 mg tablet (Xarelto) 15 mg PO QPM 02/02/24 07/24/24 albuterol sulfate 2.5 mg/3 mL 2.5 mg inhalation Q4H PRN wheezing 02/03/24 07/24/24 (0.083 %) solution for nebulization albuterol sulfate 90 mcg/actuation 2 puff inhalation Q6H PRN wheezing 02/03/24 07/24/24 aerosol inhaler ipratropium 0.5 mg-albuterol 3 mg 3 ml inhalation DAILY PRN SOB 02/03/24 07/24/24 (2.5 mg base)/3 mL nebulization soln lidocaine 5 % topical patch 1 patch topical DAILY 02/03/24 07/24/24 potassium chloride 10 mEq 10 meq PO BID 02/03/24 07/24/24 tablet,extended release propranolol 20 mg tablet 20 mg PO 3XD 07/24/24 07/24/24 buspirone 10 mg tablet 10 mg PO 3XD 07/25/24 07/25/24 pramipexole 1 mg tablet 1 mg PO ONCE PM 07/25/24 07/25/24 Previous Rx's Medication Instructions Recorded doxycycline hyclate 100 mg capsule 100 mg PO DAILY #5 caps 07/26/24 prednisone 50 mg tablet 50 mg PO DAILY #3 tabs 07/26/24 Allergies Allergy/AdvReac Type Severity Reaction Status Date / Time amlodipine Allergy Hypotension Verified 08/06/24 15:24 metoprolol Allergy Hypotension Verified 08/06/24 15:24 shellfish derived Allergy Verified 08/06/24 15:24 tramadol Allergy Verified 08/06/24 15:24 Patient History Social History household members: family and children alcohol intake: never tobacco type: vaping alcohol intake frequency: 0-2 drinks per day Exam Initial Vital Signs Initial Vital Signs: Vital Signs Temperature 97.7 F 02/10/25 10:54 Pulse Rate 72 02/10/25 10:54 Respiratory Rate 20 02/10/25 10:54 Pulse Oximetry 94 02/10/25 10:54 Oxygen Delivery Method Room Air 02/10/25 10:54 GENERAL: Alert 71-year-old female appears in extreme pain HEENT: Head atraumatic,EOMI, pupils reactive, face symmetric, moist mucous membranes CARDIOVASCULAR: Regular rate and rhythm without murmurs, rubs or gallops. RESPIRATORY: Breath sounds equal bilaterally, no wheezes rales or rhonchi. ABDOMEN: Soft, diffusely tender more tender in the left lower quadrant than other area. : No CVA tenderness EXTREMITIES: Normal range of motion, no clubbing or edema. Neurovascularly intact NEUROLOGICAL: Alert and oriented x4.Normal gait and speech. Cranial nerves II through XII grossly intact. SKIN: Warm, dry, no laceration, no petechiae, no rashes or lesions. Course Orders Ordered: Discontinued Medications Diphenhydramine HCl (Diphenhydramine 50 Mg/Ml Vial) 25 mg IV NOW ONE Stop: 02/10/25 11:05 Last Admin: 02/10/25 11:14 Dose: 25 mg Documented By: BS Hydromorphone HCl (Hydromorphone 0.5 Mg Inj) 0.5 mg IV NOW ONE Stop: 02/10/25 11:01 Last Admin: 02/10/25 11:14 Dose: 0.5 mg Documented By: BS Sodium Chloride (Normal Saline 0.9%) 1,000 mls @ 1,000 mls/hr IV BOLUS ONE Stop: 02/10/25 11:59 Last Infusion: 02/10/25 12:41 Dose: Infused Documented By: Admin: 02/10/25 11:13 Dose: 1,000 mls/hr Documented By: BS Magnesium Citrate (Magnesium Citrate 300 Ml Solution) 300 ml PO NOW ONE Stop: 02/10/25 17:39 Last Admin: 02/10/25 18:11 Dose: 300 ml Documented By: RB Methylprednisolone (Methylprednisolone 125 Mg/2 Ml Vial) 125 mg IV NOW ONE Stop: 02/10/25 11:05 Last Admin: 02/10/25 11:14 Dose: 125 mg Documented By: BS Mineral Oil (Mineral Oil 1 Each Enema) 1 each DC NOW ONE Stop: 02/10/25 16:16 Last Admin: 02/10/25 16:52 Dose: 1 each Documented By: YONI Ondansetron HCl (Ondansetron 4 Mg/2 Ml Inj) 4 mg IV NOW ONE Stop: 02/10/25 11:01 Last Admin: 02/10/25 11:14 Dose: 4 mg Documented By: BS Vital Signs Vital signs: Vital Signs - 8 hr 02/10/25 10:54 02/10/25 11:02 02/10/25 11:14 Temperature 97.7 F Pulse Rate 72 68 64 Respiratory Rate 20 18 Blood Pressure Pulse Oximetry 94 94 95 Oxygen Delivery Method Room Air Room Air Oxygen Flow Rate 02/10/25 11:14 02/10/25 11:30 02/10/25 12:00 Temperature Pulse Rate 64 70 Respiratory Rate 20 20 Blood Pressure 144/64 H Pulse Oximetry 97 92 Oxygen Delivery Method Nasal Cannula Nasal Cannula Oxygen Flow Rate 2 2 02/10/25 12:14 02/10/25 12:14 02/10/25 12:30 Temperature Pulse Rate 69 Respiratory Rate 29 H Blood Pressure 171/69 H 153/68 H Pulse Oximetry 93 Oxygen Delivery Method Nasal Cannula Oxygen Flow Rate 2 02/10/25 12:30 02/10/25 13:00 02/10/25 13:30 Temperature Pulse Rate 69 71 76 Respiratory Rate 19 22 19 Blood Pressure Pulse Oximetry 97 91 96 Oxygen Delivery Method Nasal Cannula Nasal Cannula Oxygen Flow Rate 2 2 02/10/25 13:30 02/10/25 14:00 02/10/25 14:00 Temperature Pulse Rate 72 Respiratory Rate 20 Blood Pressure 177/74 H 156/86 H Pulse Oximetry 96 Oxygen Delivery Method Oxygen Flow Rate 02/10/25 14:30 02/10/25 15:00 02/10/25 15:00 Temperature Pulse Rate 74 71 Respiratory Rate 20 16 Blood Pressure 185/67 H Pulse Oximetry 95 96 Oxygen Delivery Method Oxygen Flow Rate 02/10/25 15:01 02/10/25 15:01 02/10/25 15:30 Temperature Pulse Rate 68 Respiratory Rate 21 Blood Pressure 167/74 H 162/80 H Pulse Oximetry 96 Oxygen Delivery Method Oxygen Flow Rate 02/10/25 15:30 02/10/25 16:00 02/10/25 16:01 Temperature Pulse Rate 76 81 81 Respiratory Rate 24 22 20 Blood Pressure Pulse Oximetry 96 94 93 Oxygen Delivery Method Oxygen Flow Rate 02/10/25 16:01 02/10/25 16:30 02/10/25 16:30 Temperature Pulse Rate 80 Respiratory Rate 16 Blood Pressure 172/66 H 155/67 H Pulse Oximetry 91 Oxygen Delivery Method Oxygen Flow Rate 02/10/25 17:00 02/10/25 17:01 02/10/25 17:01 Temperature Pulse Rate 102 H 100 H Respiratory Rate 19 23 Blood Pressure 200/86 H Pulse Oximetry Oxygen Delivery Method Oxygen Flow Rate 02/10/25 17:30 02/10/25 17:31 02/10/25 17:31 Temperature Pulse Rate 89 89 Respiratory Rate 20 21 Blood Pressure 153/64 H Pulse Oximetry 95 96 Oxygen Delivery Method Oxygen Flow Rate MDM - Abdominal Pain Lab Data 02/10/25 11:00 02/10/25 11:00 Labs: Lab Results 02/10/25 Range/Units 11:00 WBC 9.0 (4.5-11.0) X10^3/uL RBC 5.61 H (4.0-5.2) X10^6/uL Hgb 13.5 (12.0-16.0) g/dL Hct 42.1 (36-46) % MCV 75.0 L (80-100) fL MCH 24.1 L (26-34) PG MCHC 32.1 (30-36) % RDW 19.8 H (11.6-14.8) % Plt Count 247 (150-400) X10^3/uL Neut % (Auto) 70.8 (50-75) % Lymph % (Auto) 21.1 L (25-40) % Dawes % (Auto) 6.0 (3-14) % Eos % (Auto) 1.3 L (2-4) % Baso % (Auto) 0.8 (0-2) % Neut # (Auto) 6400 (1017-9225) /uL Lymph # (Auto) 1900 (5340-5320) /uL Dawes # (Auto) 500 (0-900) /uL Eos # (Auto) 100 (0-450) /uL Baso # (Auto) 100 (0-100) /uL Sodium 138 (137-145) mmol/L Potassium 4.8 (3.4-5.1) mmol/L Chloride 105 (98-107) mmol/L Carbon Dioxide 25 (22-32) mmol/L BUN 16 (7-17) mg/dL Creatinine 0.77 (0.52-1.04) mg/dL Estimated GFR > 60 (>60) mL/min BUN/Creatinine Ratio 20.8 (6-22) Glucose 164 H (70-99) mg/dL Lactate 1.7 (0.7-2.1) mmol/L Calcium 8.5 (8.4-10.2) mg/dL Total Bilirubin 0.7 (0.2-1.3) mg/dL AST 25 (14-36) IU/L ALT 19 (<35) IU/L Alkaline Phosphatase 91 (38-126) U/L Total Creatine Kinase 31 (30-135) U/L Troponin I < 0.012 (0.01-0.034) ng/mL Total Protein 6.6 (6.3-8.2) g/dL Albumin 3.9 (3.5-5.0) g/dL Globulin 2.7 (1.7-4.1) g/dL Albumin/Globulin Ratio 1.4 (1.0-2.8) Lipase 54 (23-300) U/L Imaging Data CT scan - abdomen/pelvis: Radiologist's Impression: PROCEDURE: CT ABDOMEN PELVIS W CON INDICATIONS: ab pain lower TECHNIQUE: After the administration of intravenous contrast, axial sections acquired from the lung bases to the pubic symphysis. Coronal and sagittal reformats were performed. For radiation dose reduction, the following was used: automated exposure control, adjustment of mA and/or kV according to patient size. COMPARISON: [facility], CT, CT ANGIO CHEST ABDOMEN PELVIS, 09/03/2023, 1:06. [facility], CT, CT ABDOMEN PELVIS WO CON, 08/06/2024, 19:07. [facility], CT, CT ABDOMEN PELVIS WO CON, 03/06/2024, 13:14. [facility], CT, CT ABDOMEN PELVIS W CON, 10/02/2024, 22:39. FINDINGS: Image quality: Diagnostic. Lower Chest: Mild consolidation can be seen within the left lower lobe. There is a subpleural right middle lobe nodule seen, measuring 7 mm, as on series 3, image 7, which is similar to priors. Dense calcification can be seen involving the mitral valve annulus. ABDOMEN: Liver: No solid mass. Gallbladder: Cholecystectomy. Biliary ducts: No biliary dilation. Pancreas: No ductal dilation. Spleen: Size is within normal limits. Accessory splenules can be seen along the hilum of the primary spleen. Adrenal Glands: No adrenal nodules. Kidneys and Ureters: No hydronephrosis. No solid mass. No complex renal cystic lesion which requires follow up. A 16 mm nonobstructing stone measuring greater than 1000 Hounsfield units can be seen within the inferior left kidney. Stomach and Bowel: Normal colonic caliber, without significant wall thickening. There is a moderate volume of stool seen within the colon. No dilated loops of small bowel are seen. Peritoneum: No abnormal intraperitoneal fluid. No free air. Ventral Wall: No significant ventral hernia. Abdominal Nodes: No retroperitoneal or mesenteric adenopathy by size criteria. Vessels: Aorta and inferior vena cava are normal in size. Atherosclerotic calcification is noted. PELVIS: Pelvic Organs: No adnexal masses are seen on either side. Bladder: No bladder wall thickening, accounting for underdistention. Pelvic Nodes: No enlarged lymph nodes. Miscellaneous: No inguinal hernias are seen. Bones: No aggressive osseous abnormality. Prior vertebroplasty cement can be seen at L1 and L2. Remote spinal fractures are seen, yet without an acute fracture. IMPRESSION: There is a moderate amount of stool seen within the colon. Please correlate with an underlying history of constipation. No dilated loops of small bowel are seen. Mild consolidative change can be seen involving the left lower lobe. Infiltrate is suspected, although differential diagnosis includes atelectasis. Additional findings: Right lower lobe subpleural nodule, similar to priors Calcification of the mitral valve annulus Cholecystectomy Accessory splenules Nonobstructing left-sided kidney stone Remote L1 and L2 vertebroplasty cement Remote Dictated by: Chauncey Kwok M.D. on 02/10/2025 at 11:05 Approved by: Chauncey Kwok M.D. on 02/10/2025 at 11:11 ECG Data Attestation: I personally reviewed and interpreted this ECG as follows: Prior ECG tracings: available for review Interpretation: Atrial fibrillation rate [address] changes MDM Narrative Medical decision making narrative: MDM CC: Abdominal pain Complicating co-morbidities: Atrial fibrillation on Xarelto diabetes hypertension GERD COPD Data collected from: Patient and previous ED record Medical records reviewed: Previous ED record from 10/02/2024 here for the same diagnosed with constipation Differential considered: Bowel obstruction appendicitis diverticulitis pancreatitis constipation Exam documented above, pertinent findings include: 79-year-old female appears very uncomfortable abdomen is soft but diffusely tender Lab Test results independently reviewed as above. Pertinent findings: WBC 9.0 hemoglobin 13.5 hematocrit 42.1 platelets 246 Sodium 138 potassium 4.6 chloride 105 carbon dioxide 25 BUN 16 creatinine 0.7 glucose 164 lactate 1.7 Troponin negative bilirubin liver enzymes within normal limits Independently reviewed EKG as above Atrial fibrillation no ischemia Imaging studies independently reviewed: CT abdomen pelvis constipation no bowel obstruction or other etiology Treatments: Dilaudid, she did require Solu-Medrol and Benadryl for IV contrast allergy Re-evaluations: Patient is sleeping still slightly. Given enema, no bowel movement Discussion: 79-year-old female presenting today with abdominal pain. Blood work is overall reassuring. CT shows constipation. Patient's abdomen is soft workup in the emergency department is overall reassuring. No need for admission at this time. Patient requesting that she have a bowel movement prior to discharge. She was given an enema but unsuccessful. She feels ready able to go home her granddaughters coming with her. We will send her home with a bottle of magnesium citrate. Discharge Plan Departure Patient Disposition: Home Clinical Impression: Constipation Instructions: DI for Constipation Activity Restrictions/Additional Instructions: *You have been diagnosed with constipation *What to do: At this time blood work and CT are overall reassuring but you are slightly constipated. Make sure you are drinking fluid and moving. *Continue to take medications as directed Magnesium citrate *Follow up with your primary care provider in 2-3 days or call [phone] *Return to ER if you should have increased abdominal pain nausea vomiting [or] any new, worsening or concerning symptoms Prescriptions: No Action lisinopril 20 mg tablet 20 mg PO DAILY Xarelto 15 mg tablet 15 mg PO QPM pantoprazole 40 mg tablet,delayed release (DR/EC) 40 mg PO DAILY Jardiance 10 mg tablet 10 mg PO DAILY furosemide 20 mg tablet 20 mg PO DAILY cyclobenzaprine 10 mg tablet 10 mg PO TID montelukast 10 mg tablet 10 mg PO ONCE PM ondansetron 8 mg tablet,disintegrating 8 mg PO Q8H PRN (Reason: nausea/vomiting) pregabalin 100 mg capsule 100 mg PO TID hydrocodone-acetaminophen 10-325 mg tablet 1 tab PO TID cholecalciferol (vitamin D3) [Vitamin D3] 25 mcg (1,000 unit) Capsule 1,000 mcg PO DAILY insulin glargine [Lantus Solostar U-100 Insulin] 100 unit/mL (3 mL) insulin pen 24 unit SUBCUT BID Patient Comments: [NO ORIGINAL SIG] ipratropium-albuterol 0.5 mg-3 mg(2.5 mg base)/3 mL solution for nebulization 3 ml inhalation DAILY PRN (Reason: SOB) albuterol sulfate 2.5 mg /3 mL (0.083 %) solution for nebulization 2.5 mg inhalation Q4H PRN (Reason: wheezing) potassium chloride 10 mEq tablet extended release 10 meq PO BID lidocaine 5 % adhesive patch,medicated 1 patch topical DAILY albuterol sulfate 90 mcg/actuation HFA aerosol inhaler 2 puff inhalation Q6H PRN (Reason: wheezing) propranolol 20 mg tablet 20 mg PO 3XD pramipexole 1 mg tablet 1 mg PO ONCE PM buspirone 10 mg tablet 10 mg PO 3XD prednisone 50 mg tablet 50 mg PO DAILY Qty: 3 0RF doxycycline hyclate 100 mg capsule 100 mg PO DAILY Qty: 5 0RF Referrals: Lawanda Gonzalez MD [Primary Care Provider] - Stand Alone Forms: Patient Portal/API/Survey
[2025-02-10 11:08] LABS: Add Manual Diff / Slide Review NO; Basophils Absolute Auto 100 /uL (0-100); Basophils Percent Auto 0.8 % (0-2); Eosinophils Absolute Auto 100 /uL (0-450); Eosinophils Percent Auto 1.3 % (2-4); Hematocrit 42.1 % (36-46); Hemoglobin 13.5 g/dL (12.0-16.0); Lymphocytes Absolute Auto 1900 /uL (1100-4500); Lymphocytes Percent Auto 21.1 % (25-40); Mean Corpuscular HGB Conc 32.1 % (30-36); Mean Corpuscular Hemoglobin 24.1 PG (26-34); Monocytes Absolute Auto 500 /uL (0-900); Neutrophils Absolute Auto 6400 /uL (1500-7000); Neutrophils Percent Auto 70.8 % (50-75); Platelet Count 247 X10^3/uL (150-400); Red Blood Cell Count 5.61 X10^6/uL (4.0-5.2); Red Cell Distribution Width 19.8 % (11.6-14.8)
--- NOTE | 2025-02-10 11:11 | EKG_ITS ---
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
[2025-02-10] MEDS: SODIUM CHLORIDE 0.9% 1,000 ML 1000 ML IV (11:13)
[2025-02-10] MEDS: methylPREDNISolone 125 MG/2 ML VIAL IV (11:14)
[2025-02-10] MEDS: ONDANSETRON 4 MG/2 ML INJ IV (11:14)
[2025-02-10] MEDS: HYDROMORPHONE 0.5 MG INJ IV (11:14)
[2025-02-10] MEDS: diphenhydrAMINE 50 MG/ML VIAL 25 MG IV (11:14)
[2025-02-10 11:19] LABS: Alanine Aminotransferase 19 IU/L (<35); Albumin 3.9 g/dL (3.5-5.0); Albumin Globulin Ratio 1.4 (1.0-2.8); Alkaline Phosphatase 91 U/L (38-126); Aspartate Aminotransferase 25 IU/L (14-36); BUN Creatinine Ratio 20.8 (6-22); Bilirubin Total 0.7 mg/dL (0.2-1.3); Blood Urea Nitrogen 16 mg/dL (7-17); Calcium 8.5 mg/dL (8.4-10.2); Carbon Dioxide 25 mmol/L (22-32); Chloride 105 mmol/L (98-107); Creatine Kinase 31 U/L (30-135); Estimated Glomerular Filt Rate > 60 mL/min (>60); Globulin 2.7 g/dL (1.7-4.1); Glucose 164 mg/dL (70-99); HEMOLYSIS < 15 (0-50); Lipase 54 U/L (23-300); Potassium 4.8 mmol/L (3.4-5.1); Sodium 138 mmol/L (137-145); Total Protein 6.6 g/dL (6.3-8.2)
[2025-02-10 11:20] LABS: Lactate (Lactic Acid) 1.7 mmol/L (0.7-2.1)
[2025-02-10 11:31] LABS: Troponin I < 0.012 ng/mL (0.01-0.034)
[2025-02-10] MEDS: MINERAL OIL 1 EACH ENEMA PR (16:52)
[2025-02-10] MEDS: MAGNESIUM CITRATE 300 ML SOLUTION PO (18:11)
--- NOTE | 2025-02-10 18:32 | PC.NURSE ---
This RN assisted patient from wheelchair into granddaughter car. Patient successfully transferred without distress and left with granddaughter.
== END 2025-02-10 18:16 | disposition home or self-care (01) ==
PROVIDERS: Emergency Provider Emergency Medicine; PCP Family Medicine
DX: K59.00 Constipation, unspecified (principal); R11.0 Nausea; Z79.01 Long term (current) use of anticoagulants; I48.91 Unspecified atrial fibrillation; I10 Essential (primary) hypertension; E11.9 Type 2 diabetes mellitus without complications; J44.9 Chronic obstructive pulmonary disease, unspecified
CPT/HCPCS: 36415; 74177; 80053; 82550; 83605; 83690; 84484; 85025; 93005; 93010; 96361; 96374; 96375; 99285; J1171; J1200; J2405; J2919; Q9967